=== PATIENT | male | born 1995 | race African-American/Black ===

== ENCOUNTER 2017-10-09 15:16 | Emergency (ER) | payer MEDICAID ==
[~2017-10-09] VITALS: Ht 180.3 cm; Wt 101.0 kg
[~2017-10-09 15:16] MED LIST: BENZ1TAB7 PO; CALC-336; ESCI20TA38 PO; HALO5TAB PO; OMEG500C3 PO; PALI234D IM; TRAZ-143 PO
[2017-10-09 15:31] VITALS: BP 129/78
== END 2017-10-09 17:38 | disposition left against medical advice (07) ==
LOC: ER 15:17
DX: M79.672 Pain in left foot (principal); M79.671 Pain in right foot; Z53.21 Procedure and treatment not carried out due to patient leaving prior to being seen by health care provider

== ENCOUNTER 2017-10-14 18:42 | Emergency (ER) | payer MEDICAID ==
[~2017-10-14] VITALS: Ht 180.3 cm; Wt 124.7 kg
[2017-10-14 19:17] VITALS: BP 140/84
[2017-10-14 19:50] LABS: UA COLLECTION TYPE CLN CATCH MIDSTREAM
[2017-10-14 19:51] LABS: CLARITY,URINE CLEAR (Clear); COLOR,URINE YELLOW (Yellow); GLUCOSE, URINE NEGATIVE (Neg); KETONES,URINE NEGATIVE (Neg); LEUKOCYTE ESTERASE ,URINE NEGATIVE (Neg); NITRITES, URINE NEGATIVE (Neg); OCCULT BLOOD,URINE NEGATIVE (Neg); PROTEIN,URINE NEGATIVE (Neg); UROBILINOGEN,URINE 0.2 E.U/dL (0.2-1.0)
[2017-10-14 19:58] LABS: URINE AMPHETAMINE SCREEN NEGATIVE (Neg); URINE BARBITUATE SCREEN NEGATIVE (Neg); URINE BENZODIAZEPINES SCREEN NEGATIVE (Neg); URINE CANNABINOID SCREEN NEGATIVE (Neg); URINE COCAINE SCREEN NEGATIVE (Neg); URINE METHADONE SCREEN NEGATIVE (Neg); URINE OPIATE SCREEN NEGATIVE (Neg); URINE PHENCYCLIDINE SCREEN NEGATIVE (Neg)
[2017-10-14 20:43] LABS: BASOPHILS % (AUTO) 0.4 % (0-1); EOSINOPHILS # (AUTO) 0.2 X10'3 (0-0.9); EOSINOPHILS % (AUTO) 2.6 % (0-6); HEMATOCRIT 38.2 % (42.0-52.0); HEMOGLOBIN 13.3 g/dl (14.0-17.9); LYMPHOCYTES # (AUTO) 2.1 X10'3 (1.1-4.8); LYMPHOCYTES % (AUTO) 22.4 % (21-51); MEAN CORPUSCULAR HEMOGLOBIN 27.2 PG (27.0-31.0); MEAN CORPUSCULAR HGB CONC 34.8 % (33.0-36.5); MEAN CORPUSCULAR VOLUME 78.1 FL (78-98); MEAN PLATELET VOLUME 9.4 FL (7.4-10.4); MONOCYTES # (AUTO) 0.7 X10'3 (0-0.9); MONOCYTES % (AUTO) 7.8 % (2-12); NEUTROPHILS # (AUTO) 6.1 X10'3 (1.8-7.7); NEUTROPHILS % (AUTO) 66.8 % (42-75); PLATELET COUNT 221 X10'3 (140-440); RED BLOOD COUNT 4.89 X10'6 (4.70-6.10); WHITE BLOOD COUNT 9.2 X10'3 (4.5-11.0)
[2017-10-14 20:56] LABS: ALANINE AMINOTRANSFERASE 39 U/L (12-78); ALBUMIN 3.4 G/DL (3.4-5.0); ALBUMIN/GLOBULIN RATIO 0.9 (1.1-1.5); ALKALINE PHOSPHATASE 96 IU/L (46-116); ANION GAP 9 (8-16); ASPARTATE AMINO TRANSFERASE 26 U/L (10-37); BILIRUBIN,TOTAL 0.2 MG/DL (0.1-1.0); BLOOD UREA NITROGEN 14 MG/DL (7-18); BUN/CREATININE RATIO 15.4 (5.4-32.0); CALCIUM 8.4 MG/DL (8.5-10.1); CHLORIDE 104 MMOL/L (99-107); CREATININE 0.91 MG/DL (0.60-1.10); ETHANOL < 0.010 GM/DL (0.0-0.010); GLUCOSE 111 MG/DL (70-104); POTASSIUM 3.6 MMOL/L (3.5-5.1); SODIUM 140 MMOL/L (135-145); TOTAL CARBON DIOXIDE 27.3 MMOL/L (24-32); TOTAL PROTEIN 7.2 G/DL (6.4-8.2); eGFR > 90 ML/MIN
== END 2017-10-14 21:39 | disposition home or self-care (01) ==
LOC: ER 18:43
DX: R44.1 Visual hallucinations (principal); F43.29 Adjustment disorder with other symptoms; R44.0 Auditory hallucinations; F99 Mental disorder, not otherwise specified; F32.9 Major depressive disorder, single episode, unspecified; Z59.0 Homelessness; Z79.899 Other long term (current) drug therapy
CPT/HCPCS: 36415; 80053; 80305; 80320; 81003; 84443; 85025; 99284

== ENCOUNTER → 2017-11-07 | Emergency (ER) | payer MEDICAID ==
[~2017-11-07] VITALS: Ht 185.4 cm; Wt 103.6 kg
[~2017-11-07] MED LIST changes: -CALC-336; +LORazepam 0.5 MG tablet PO PRN; +LORazepam 2 mg/ml vial IM PRN; -OMEG500C3 PO; +haloperidol 5mg tablet PO PRN; +haloperidol lactate 5mg/ml inj IM PRN
[2017-11-07 20:53] LABS: BASOPHILS # (AUTO) 0.1 X10'3 (0-0.2); BASOPHILS % (AUTO) 1.1 % (0-1); EOSINOPHILS # (AUTO) 0.2 X10'3 (0-0.9); EOSINOPHILS % (AUTO) 2.6 % (0-6); HEMATOCRIT 40.1 % (42.0-52.0); HEMOGLOBIN 13.6 g/dl (14.0-17.9); LYMPHOCYTES # (AUTO) 2.2 X10'3 (1.1-4.8); LYMPHOCYTES % (AUTO) 24.2 % (21-51); MEAN CORPUSCULAR HEMOGLOBIN 26.8 PG (27.0-31.0); MEAN CORPUSCULAR VOLUME 78.7 FL (78-98); MONOCYTES # (AUTO) 0.7 X10'3 (0-0.9); NEUTROPHILS # (AUTO) 5.7 X10'3 (1.8-7.7); NEUTROPHILS % (AUTO) 64.1 % (42-75); PLATELET COUNT 227 X10'3 (140-440); RED BLOOD COUNT 5.09 X10'6 (4.70-6.10); RED CELL DISTRIBUTION WIDTH 14.3 % (11.5-14.5)
[2017-11-07 21:17] LABS: ALANINE AMINOTRANSFERASE 30 U/L (12-78); ALBUMIN 3.7 G/DL (3.4-5.0); ALKALINE PHOSPHATASE 91 IU/L (46-116); ANION GAP 8 (8-16); ASPARTATE AMINO TRANSFERASE 21 U/L (10-37); BILIRUBIN,TOTAL 0.2 MG/DL (0.1-1.0); BLOOD UREA NITROGEN 16 MG/DL (7-18); BUN/CREATININE RATIO 16.7 (5.4-32.0); CHLORIDE 104 MMOL/L (99-107); CREATININE 0.96 MG/DL (0.60-1.10); ETHANOL < 0.010 GM/DL (0.0-0.010); GLUCOSE 92 MG/DL (70-104); POTASSIUM 3.7 MMOL/L (3.5-5.1); SODIUM 142 MMOL/L (135-145); TOTAL CARBON DIOXIDE 29.8 MMOL/L (24-32); TOTAL PROTEIN 7.3 G/DL (6.4-8.2); eGFR > 90 ML/MIN
[2017-11-07 22:14] LABS: URINE AMPHETAMINE SCREEN NEGATIVE (Neg); URINE BARBITUATE SCREEN NEGATIVE (Neg); URINE BENZODIAZEPINES SCREEN NEGATIVE (Neg); URINE CANNABINOID SCREEN NEGATIVE (Neg); URINE COCAINE SCREEN NEGATIVE (Neg); URINE METHADONE SCREEN NEGATIVE (Neg); URINE OPIATE SCREEN NEGATIVE (Neg); URINE PHENCYCLIDINE SCREEN NEGATIVE (Neg)
[2017-11-07 22:19] LABS: CLARITY,URINE CLEAR (Clear); COLOR,URINE YELLOW (Yellow); GLUCOSE, URINE NEGATIVE (Neg); KETONES,URINE NEGATIVE (Neg); LEUKOCYTE ESTERASE ,URINE NEGATIVE (Neg); NITRITES, URINE NEGATIVE (Neg); OCCULT BLOOD,URINE NEGATIVE (Neg); PROTEIN,URINE NEGATIVE (Neg); UA COLLECTION TYPE CLN CATCH MIDSTREAM; UROBILINOGEN,URINE 0.2 E.U/dL (0.2-1.0)
[2017-11-08 10:04] VITALS: BP 121/69
== END | disposition home or self-care (01) ==
LOC: ER 20:05
DX: R45.850 Homicidal ideations (principal); F20.0 Paranoid schizophrenia; F15.10 Other stimulant abuse, uncomplicated; E03.9 Hypothyroidism, unspecified; L98.9 Disorder of the skin and subcutaneous tissue, unspecified; F32.9 Major depressive disorder, single episode, unspecified; Z79.899 Other long term (current) drug therapy; Z59.0 Homelessness
CPT/HCPCS: 36415; 80053; 80305; 80320; 81003; 84439; 84443; 85025; 99284

== ENCOUNTER 2017-11-27 12:30 | Emergency (ER) | payer MEDICAID ==
[~2017-11-27] VITALS: Ht 180.3 cm; Wt 119.0 kg
[~2017-11-27 12:30] MED LIST changes: -LORazepam 0.5 MG tablet PO PRN; -LORazepam 2 mg/ml vial IM PRN; -haloperidol 5mg tablet PO PRN; -haloperidol lactate 5mg/ml inj IM PRN
[2017-11-27 12:42] VITALS: BP 132/85
[2017-11-27] MEDS ORDERED: CLIN-79 PO (13:13)
== END 2017-11-27 13:21 | disposition home or self-care (01) ==
LOC: ER 12:34
DX: K04.7 Periapical abscess without sinus (principal); Z79.899 Other long term (current) drug therapy; Z59.0 Homelessness
CPT/HCPCS: 99283

== ENCOUNTER 2017-12-01 19:00 | Emergency (ER) | payer MEDICAID ==
[~2017-12-01] VITALS: Ht 180.3 cm; Wt 119.0 kg
[~2017-12-01 19:00] MED LIST changes: +CLIN-79 PO
[2017-12-01 20:34] LABS: BASOPHILS % (AUTO) 0.6 % (0-1); EOSINOPHILS # (AUTO) 0.3 X10'3 (0-0.9); EOSINOPHILS % (AUTO) 3.7 % (0-6); HEMATOCRIT 38.4 % (42.0-52.0); HEMOGLOBIN 12.8 g/dl (14.0-17.9); LYMPHOCYTES # (AUTO) 1.7 X10'3 (1.1-4.8); LYMPHOCYTES % (AUTO) 21.2 % (21-51); MEAN CORPUSCULAR HEMOGLOBIN 26.3 PG (27.0-31.0); MEAN CORPUSCULAR HGB CONC 33.3 % (33.0-36.5); MEAN PLATELET VOLUME 8.8 FL (7.4-10.4); MONOCYTES # (AUTO) 0.6 X10'3 (0-0.9); MONOCYTES % (AUTO) 7.9 % (2-12); NEUTROPHILS # (AUTO) 5.5 X10'3 (1.8-7.7); NEUTROPHILS % (AUTO) 66.6 % (42-75); PLATELET COUNT 228 X10'3 (140-440); RED BLOOD COUNT 4.87 X10'6 (4.70-6.10); RED CELL DISTRIBUTION WIDTH 14.1 % (11.5-14.5); WHITE BLOOD COUNT 8.2 X10'3 (4.5-11.0)
[2017-12-01 20:47] LABS: ALANINE AMINOTRANSFERASE 33 U/L (12-78); ALBUMIN 3.3 G/DL (3.4-5.0); ALBUMIN/GLOBULIN RATIO 0.9 (1.1-1.5); ALKALINE PHOSPHATASE 94 IU/L (46-116); ANION GAP 8 (8-16); ASPARTATE AMINO TRANSFERASE 21 U/L (10-37); BILIRUBIN,TOTAL 0.2 MG/DL (0.1-1.0); BLOOD UREA NITROGEN 13 MG/DL (7-18); BUN/CREATININE RATIO 15.7 (5.4-32.0); CALCIUM 8.4 MG/DL (8.5-10.1); CHLORIDE 105 MMOL/L (99-107); CREATININE 0.83 MG/DL (0.60-1.10); ETHANOL < 0.010 GM/DL (0.0-0.010); GLUCOSE 112 MG/DL (70-104); POTASSIUM 3.7 MMOL/L (3.5-5.1); SODIUM 141 MMOL/L (135-145); TOTAL CARBON DIOXIDE 28.2 MMOL/L (24-32); TOTAL PROTEIN 6.8 G/DL (6.4-8.2); eGFR > 90 ML/MIN
[2017-12-01 21:10] LABS: URINE AMPHETAMINE SCREEN NEGATIVE (Neg); URINE BARBITUATE SCREEN NEGATIVE (Neg); URINE BENZODIAZEPINES SCREEN NEGATIVE (Neg); URINE CANNABINOID SCREEN NEGATIVE (Neg); URINE COCAINE SCREEN NEGATIVE (Neg); URINE METHADONE SCREEN NEGATIVE (Neg); URINE OPIATE SCREEN NEGATIVE (Neg); URINE PHENCYCLIDINE SCREEN NEGATIVE (Neg)
[2017-12-02 08:05] VITALS: BP 116/57
== END 2017-12-02 09:09 | disposition home or self-care (01) ==
LOC: ER 19:00
DX: F20.9 Schizophrenia, unspecified (principal); F32.9 Major depressive disorder, single episode, unspecified; R45.851 Suicidal ideations; Z59.0 Homelessness; Z60.2 Problems related to living alone; Z79.899 Other long term (current) drug therapy
CPT/HCPCS: 36415; 80053; 80305; 80320; 85025; 99284

== ENCOUNTER 2018-02-24 17:18 | Emergency (ER) | payer MEDICAID ==
[~2018-02-24] VITALS: Ht 180.3 cm; Wt 130.0 kg
[~2018-02-24 17:18] MED LIST changes: -CLIN-79 PO; +CLIN150C8 PO; -TRAZ-143 PO; +TRAZ-218 PO
[2018-02-24 18:29] LABS: BASOPHILS # (AUTO) 0.1 X10'3 (0-0.2); BASOPHILS % (AUTO) 0.9 % (0-1); EOSINOPHILS # (AUTO) 0.2 X10'3 (0-0.9); EOSINOPHILS % (AUTO) 1.5 % (0-6); HEMATOCRIT 38.3 % (42.0-52.0); HEMOGLOBIN 13.1 g/dl (14.0-17.9); LYMPHOCYTES # (AUTO) 1.7 X10'3 (1.1-4.8); LYMPHOCYTES % (AUTO) 14.5 % (21-51); MEAN CORPUSCULAR HEMOGLOBIN 26.9 PG (27.0-31.0); MEAN CORPUSCULAR HGB CONC 34.3 % (33.0-36.5); MEAN CORPUSCULAR VOLUME 78.6 FL (78-98); MEAN PLATELET VOLUME 8.4 FL (7.4-10.4); MONOCYTES # (AUTO) 1.1 X10'3 (0-0.9); MONOCYTES % (AUTO) 9.3 % (2-12); NEUTROPHILS # (AUTO) 8.6 X10'3 (1.8-7.7); NEUTROPHILS % (AUTO) 73.8 % (42-75); PLATELET COUNT 252 X10'3 (140-440); RED BLOOD COUNT 4.88 X10'6 (4.70-6.10); RED CELL DISTRIBUTION WIDTH 14.6 % (11.5-14.5); WHITE BLOOD COUNT 11.6 X10'3 (4.5-11.0)
[2018-02-24 18:44] LABS: ALANINE AMINOTRANSFERASE 37 U/L (12-78); ALBUMIN 3.4 G/DL (3.4-5.0); ALBUMIN/GLOBULIN RATIO 0.9 (1.1-1.5); ALKALINE PHOSPHATASE 98 IU/L (46-116); ANION GAP 6 (8-16); ASPARTATE AMINO TRANSFERASE 22 U/L (10-37); BILIRUBIN,TOTAL 0.2 MG/DL (0.1-1.0); BLOOD UREA NITROGEN 12 MG/DL (7-18); CALCIUM 8.4 MG/DL (8.5-10.1); CHLORIDE 104 MMOL/L (99-107); CREATININE 0.92 MG/DL (0.60-1.10); GLUCOSE 100 MG/DL (70-104); POTASSIUM 3.6 MMOL/L (3.5-5.1); SODIUM 139 MMOL/L (135-145); TOTAL CARBON DIOXIDE 28.8 MMOL/L (24-32); TOTAL PROTEIN 7.1 G/DL (6.4-8.2); eGFR > 90 ML/MIN
[2018-02-24 18:54] LABS: ETHANOL < 0.010 GM/DL (0.0-0.010)
[2018-02-24 18:55] LABS: CLARITY,URINE CLEAR (Clear); COLOR,URINE YELLOW (Yellow); GLUCOSE, URINE NEGATIVE (Neg); KETONES,URINE NEGATIVE (Neg); LEUKOCYTE ESTERASE ,URINE NEGATIVE (Neg); NITRITES, URINE NEGATIVE (Neg); OCCULT BLOOD,URINE NEGATIVE (Neg); PROTEIN,URINE NEGATIVE (Neg)
[2018-02-24 18:58] LABS: UA COLLECTION TYPE CLN CATCH MIDSTREAM
[2018-02-24 19:07] LABS: URINE AMPHETAMINE SCREEN NEGATIVE (Neg); URINE BARBITUATE SCREEN NEGATIVE (Neg); URINE BENZODIAZEPINES SCREEN NEGATIVE (Neg); URINE CANNABINOID SCREEN NEGATIVE (Neg); URINE COCAINE SCREEN NEGATIVE (Neg); URINE METHADONE SCREEN NEGATIVE (Neg); URINE OPIATE SCREEN NEGATIVE (Neg); URINE PHENCYCLIDINE SCREEN NEGATIVE (Neg)
[2018-02-24] MEDS ORDERED: HALO5TAB PO (19:47)
[2018-02-24] MEDS ORDERED: HALO10TA13 PO (19:47)
[2018-02-24] MEDS ORDERED: BENZ1TAB7 PO (19:47)
[2018-02-24] MEDS ORDERED: OMEP40CA37 PO (20:00)
[2018-02-24] MEDS ORDERED: benztropine 1mg tablet PO PRN (21:35)
[2018-02-24] MEDS ORDERED: haloperidol 5mg tablet PO SCH (23:00)
[2018-02-25 06:13] VITALS: BP 113/54
[2018-02-25] MEDS ORDERED: pantoprazole 40mg Tablet.DR PO SCH (08:00)
[2018-02-25] MEDS ORDERED: haloperidol 5mg tablet PO SCH (08:00)
[2018-02-25] MEDS ORDERED: citalopram 20mg tablet PO SCH (08:00)
[2018-02-25] MEDS ORDERED: traZODone 50mg tablet PO SCH (21:00)
== END 2018-02-25 14:06 ==
LOC: ER 17:18
DX: R45.851 Suicidal ideations (principal); R45.850 Homicidal ideations; F29 Unspecified psychosis not due to a substance or known physiological condition; F32.9 Major depressive disorder, single episode, unspecified; F20.9 Schizophrenia, unspecified; Z79.899 Other long term (current) drug therapy; Z59.0 Homelessness; Z60.2 Problems related to living alone
CPT/HCPCS: 36415; 80053; 80305; 80320; 81003; 84443; 85025; 99285

== ENCOUNTER 2018-05-08 11:49 | Emergency (ER) | payer MEDICAID ==
[~2018-05-08] VITALS: Ht 180.3 cm; Wt 120.0 kg
[~2018-05-08 11:49] MED LIST changes: -CLIN150C8 PO; +HALO10TA13 PO; +OMEP40CA37 PO
[2018-05-08 11:59] VITALS: BP 124/80
[2018-05-08] MEDS ORDERED: IBUP-1985 PO (12:26)
[2018-05-08] MEDS ORDERED: PENI500T2 PO (12:26)
== END 2018-05-08 12:34 | disposition home or self-care (01) ==
LOC: ER 11:50
DX: K08.89 Other specified disorders of teeth and supporting structures (principal); R11.10 Vomiting, unspecified; F32.9 Major depressive disorder, single episode, unspecified; F20.9 Schizophrenia, unspecified; Z59.0 Homelessness; Z79.899 Other long term (current) drug therapy
CPT/HCPCS: 99283

== ENCOUNTER 2018-05-31 18:37 | Emergency (ER) | payer MEDICAID ==
[~2018-05-31] VITALS: Ht 180.3 cm; Wt 84.5 kg
[~2018-05-31 18:37] MED LIST changes: +IBUP-1985 PO; +PENI500T2 PO
[2018-05-31 19:09] VITALS: BP 148/78
== END 2018-05-31 20:23 | disposition home or self-care (01) ==
LOC: ER 18:37
DX: F20.9 Schizophrenia, unspecified (principal); F32.9 Major depressive disorder, single episode, unspecified; Z60.2 Problems related to living alone; Z59.0 Homelessness; Z79.899 Other long term (current) drug therapy
CPT/HCPCS: 99284

== ENCOUNTER 2018-06-13 20:25 | Emergency (ER) | payer MEDICAID ==
[~2018-06-13] VITALS: Ht 180.3 cm; Wt 120.0 kg
[~2018-06-13 20:25] MED LIST changes: -PENI500T2 PO
[2018-06-13 21:06] LABS: BASOPHILS # (AUTO) 0.1 X10'3 (0-0.2); BASOPHILS % (AUTO) 0.7 % (0-1); EOSINOPHILS # (AUTO) 0.2 X10'3 (0-0.9); EOSINOPHILS % (AUTO) 2.2 % (0-6); HEMATOCRIT 40.6 % (42.0-52.0); HEMOGLOBIN 13.5 g/dl (14.0-17.9); LYMPHOCYTES # (AUTO) 1.8 X10'3 (1.1-4.8); LYMPHOCYTES % (AUTO) 17.7 % (21-51); MEAN CORPUSCULAR HEMOGLOBIN 26.7 PG (27.0-31.0); MEAN CORPUSCULAR HGB CONC 33.1 % (33.0-36.5); MEAN CORPUSCULAR VOLUME 80.5 FL (78-98); MONOCYTES # (AUTO) 0.8 X10'3 (0-0.9); MONOCYTES % (AUTO) 7.7 % (2-12); NEUTROPHILS # (AUTO) 7.3 X10'3 (1.8-7.7); NEUTROPHILS % (AUTO) 71.7 % (42-75); PLATELET COUNT 242 X10'3 (140-440); RED BLOOD COUNT 5.05 X10'6 (4.70-6.10); RED CELL DISTRIBUTION WIDTH 14.1 % (11.5-14.5); WHITE BLOOD COUNT 10.1 X10'3 (4.5-11.0)
[2018-06-13] MEDS ORDERED: normal saline 1000ML IV soln IVB ONE (21:15)
[2018-06-13 21:16] LABS: ALANINE AMINOTRANSFERASE 38 U/L (12-78); ALBUMIN 3.7 G/DL (3.4-5.0); ALKALINE PHOSPHATASE 93 IU/L (46-116); ANION GAP 10 (8-16); ASPARTATE AMINO TRANSFERASE 24 U/L (10-37); BILIRUBIN,TOTAL 0.2 MG/DL (0.1-1.0); BLOOD UREA NITROGEN 8 MG/DL (7-18); BUN/CREATININE RATIO 9.5 (5.4-32.0); CALCIUM 8.7 MG/DL (8.5-10.1); CHLORIDE 105 MMOL/L (99-107); CREATININE 0.84 MG/DL (0.60-1.10); ETHANOL < 0.010 GM/DL (0.0-0.010); GLUCOSE 117 MG/DL (70-104); MAGNESIUM 2.1 MG/DL (1.5-2.4); POTASSIUM 3.7 MMOL/L (3.5-5.1); SODIUM 142 MMOL/L (135-145); TOTAL CARBON DIOXIDE 27.4 MMOL/L (24-32); TOTAL PROTEIN 7.3 G/DL (6.4-8.2); eGFR > 90 ML/MIN
[2018-06-13 21:17] LABS: ACETAMINOPHEN < 2.0 UG/ML (10-30)
[2018-06-13 21:27] LABS: PARTIAL THROMBOPLASTIN TIME 33 SECONDS (22-32)
[2018-06-13 21:35] LABS: CLARITY,URINE CLEAR (Clear); COLOR,URINE YELLOW (Yellow); GLUCOSE, URINE NEGATIVE (Neg); KETONES,URINE NEGATIVE (Neg); LEUKOCYTE ESTERASE ,URINE NEGATIVE (Neg); NITRITES, URINE NEGATIVE (Neg); OCCULT BLOOD,URINE NEGATIVE (Neg); PH,URINE 6.5 (4.8-8.0); PROTEIN,URINE NEGATIVE (Neg); UROBILINOGEN,URINE 0.2 E.U/dL (0.2-1.0)
[2018-06-13 21:39] LABS: UA COLLECTION TYPE CLN CATCH MIDSTREAM
[2018-06-13 21:51] LABS: URINE AMPHETAMINE SCREEN NEGATIVE (Neg); URINE BARBITUATE SCREEN NEGATIVE (Neg); URINE BENZODIAZEPINES SCREEN NEGATIVE (Neg); URINE CANNABINOID SCREEN NEGATIVE (Neg); URINE COCAINE SCREEN NEGATIVE (Neg); URINE METHADONE SCREEN NEGATIVE (Neg); URINE OPIATE SCREEN NEGATIVE (Neg); URINE PHENCYCLIDINE SCREEN NEGATIVE (Neg)
[2018-06-14] MEDS ORDERED: citalopram 20mg tablet PO SCH (08:00)
[2018-06-14 12:54] VITALS: BP 121/63
== END 2018-06-14 13:06 | disposition home or self-care (01) ==
LOC: ER 20:25
DX: T43.4X2A Poisoning by butyrophenone and thiothixene neuroleptics, intentional self-harm, initial encounter (principal); F32.9 Major depressive disorder, single episode, unspecified; F20.9 Schizophrenia, unspecified; Z79.899 Other long term (current) drug therapy; Z60.2 Problems related to living alone; Z59.0 Homelessness; Y92.89 Other specified places as the place of occurrence of the external cause
CPT/HCPCS: 36415; 80053; 80305; 80320; 80329; 81003; 83735; 85025; 85610; 85730; 93005; 99284

== ENCOUNTER 2018-07-10 19:42 | Emergency (ER) | payer MEDICAID ==
[~2018-07-10] VITALS: Ht 180.3 cm; Wt 99.0 kg
[2018-07-10] MEDS ORDERED: [UNRECOGNIZED DRUG - REMARK] (20:18)
[2018-07-10 20:48] LABS: ALANINE AMINOTRANSFERASE 33 U/L (12-78); ALBUMIN 3.2 G/DL (3.4-5.0); ALBUMIN/GLOBULIN RATIO 0.8 (1.1-1.5); ALKALINE PHOSPHATASE 96 IU/L (46-116); ANION GAP 11 (8-16); ASPARTATE AMINO TRANSFERASE 22 U/L (10-37); BILIRUBIN,TOTAL 0.1 MG/DL (0.1-1.0); BLOOD UREA NITROGEN 9 MG/DL (7-18); BUN/CREATININE RATIO 10.8 (5.4-32.0); CALCIUM 8.2 MG/DL (8.5-10.1); CHLORIDE 104 MMOL/L (99-107); CREATININE 0.83 MG/DL (0.60-1.10); GLUCOSE 140 MG/DL (70-104); POTASSIUM 3.5 MMOL/L (3.5-5.1); SODIUM 142 MMOL/L (135-145); TOTAL CARBON DIOXIDE 26.7 MMOL/L (24-32); eGFR > 90 ML/MIN
[2018-07-10 20:54] LABS: BASOPHILS % (AUTO) 0.3 % (0-1); EOSINOPHILS # (AUTO) 0.3 X10'3 (0-0.9); EOSINOPHILS % (AUTO) 2.7 % (0-6); HEMATOCRIT 37.4 % (42.0-52.0); HEMOGLOBIN 12.3 g/dl (14.0-17.9); LYMPHOCYTES # (AUTO) 2.3 X10'3 (1.1-4.8); LYMPHOCYTES % (AUTO) 24.1 % (21-51); MEAN CORPUSCULAR HEMOGLOBIN 26.4 PG (27.0-31.0); MEAN CORPUSCULAR HGB CONC 32.9 % (33.0-36.5); MEAN PLATELET VOLUME 9.1 FL (7.4-10.4); MONOCYTES # (AUTO) 0.8 X10'3 (0-0.9); MONOCYTES % (AUTO) 8.8 % (2-12); NEUTROPHILS % (AUTO) 64.1 % (42-75); PLATELET COUNT 282 X10'3 (140-440); RED BLOOD COUNT 4.67 X10'6 (4.70-6.10); RED CELL DISTRIBUTION WIDTH 14.1 % (11.5-14.5); WHITE BLOOD COUNT 9.4 X10'3 (4.5-11.0)
[2018-07-10 20:57] LABS: ETHANOL < 0.010 GM/DL (0.0-0.010)
[2018-07-10 22:21] LABS: CLARITY,URINE CLEAR (Clear); COLOR,URINE YELLOW (Yellow); GLUCOSE, URINE NEGATIVE (Neg); KETONES,URINE NEGATIVE (Neg); LEUKOCYTE ESTERASE ,URINE NEGATIVE (Neg); NITRITES, URINE NEGATIVE (Neg); OCCULT BLOOD,URINE NEGATIVE (Neg); PROTEIN,URINE NEGATIVE (Neg); UROBILINOGEN,URINE 0.2 E.U/dL (0.2-1.0)
[2018-07-10 22:34] LABS: URINE AMPHETAMINE SCREEN NEGATIVE (Neg); URINE BARBITUATE SCREEN NEGATIVE (Neg); URINE BENZODIAZEPINES SCREEN NEGATIVE (Neg); URINE CANNABINOID SCREEN NEGATIVE (Neg); URINE COCAINE SCREEN NEGATIVE (Neg); URINE METHADONE SCREEN NEGATIVE (Neg); URINE OPIATE SCREEN NEGATIVE (Neg); URINE PHENCYCLIDINE SCREEN NEGATIVE (Neg)
[2018-07-10 22:45] LABS: UA COLLECTION TYPE CLN CATCH MIDSTREAM
[2018-07-11 05:30] VITALS: BP 106/61
== END 2018-07-11 10:59 | disposition home or self-care (01) ==
LOC: ER 19:43
DX: S01.80XA Unspecified open wound of other part of head, initial encounter (principal); R45.851 Suicidal ideations; F32.9 Major depressive disorder, single episode, unspecified; F20.9 Schizophrenia, unspecified; F41.9 Anxiety disorder, unspecified; Z79.899 Other long term (current) drug therapy; Z60.2 Problems related to living alone; Z59.0 Homelessness; X58.XXXA Exposure to other specified factors, initial encounter; Y93.89 Activity, other specified; Y92.89 Other specified places as the place of occurrence of the external cause; Y99.8 Other external cause status
CPT/HCPCS: 36415; 80053; 80305; 80320; 80329; 81003; 84443; 85025; 99284

== ENCOUNTER 2018-07-18 19:08 | Emergency (ER) | payer MEDICAID ==
[~2018-07-18] VITALS: Ht 180.3 cm; Wt 120.3 kg
[~2018-07-18 19:08] MED LIST changes: -BENZ1TAB7 PO; -IBUP-1985 PO; -OMEP40CA37 PO; -TRAZ-218 PO; +[UNRECOGNIZED DRUG - REMARK]
[2018-07-18 19:51] VITALS: BP 144/82
== END 2018-07-18 21:04 | disposition left against medical advice (07) ==
LOC: ER 19:09
DX: R44.0 Auditory hallucinations (principal); Z53.21 Procedure and treatment not carried out due to patient leaving prior to being seen by health care provider

== ENCOUNTER 2018-07-24 18:07 | Emergency (ER) | payer MEDICAID | END 2018-07-24 19:29 | disposition left against medical advice (07) | LOC: ER 18:07 | DX: R45.851 Suicidal ideations (principal); Z53.21 Procedure and treatment not carried out due to patient leaving prior to being seen by health care provider ==

== ENCOUNTER 2018-07-25 18:16 | Emergency (ER) | payer MEDICAID ==
[~2018-07-25] VITALS: Ht 180.3 cm; Wt 130.0 kg
[2018-07-25] MEDS ORDERED: charcoal/sorbitol 50gm/240ml suspension PO ONE (18:20)
--- NOTE | 2018-07-25 18:35 | NUR ---
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 ROUTINE WORKUP, ASA TYL ETOH CHEM 6 HR OBSERVATION AND GO FROM THERE SUPPORTIVE TREATMENT. MADE AWARE.
[2018-07-25 18:49] LABS: BASOPHILS % (AUTO) 0.3 % (0-1); EOSINOPHILS # (AUTO) 0.3 X10'3 (0-0.9); EOSINOPHILS % (AUTO) 2.1 % (0-6); HEMATOCRIT 40.9 % (42.0-52.0); HEMOGLOBIN 13.4 g/dl (14.0-17.9); LYMPHOCYTES # (AUTO) 1.7 X10'3 (1.1-4.8); MEAN CORPUSCULAR HEMOGLOBIN 26.2 PG (27.0-31.0); MEAN CORPUSCULAR HGB CONC 32.9 % (33.0-36.5); MEAN CORPUSCULAR VOLUME 79.6 FL (78-98); MONOCYTES # (AUTO) 1.1 X10'3 (0-0.9); MONOCYTES % (AUTO) 8.3 % (2-12); NEUTROPHILS # (AUTO) 9.8 X10'3 (1.8-7.7); NEUTROPHILS % (AUTO) 76.3 % (42-75); PLATELET COUNT 281 X10'3 (140-440); RED BLOOD COUNT 5.14 X10'6 (4.70-6.10); RED CELL DISTRIBUTION WIDTH 14.1 % (11.5-14.5); WHITE BLOOD COUNT 12.9 X10'3 (4.5-11.0)
[2018-07-25 18:54] LABS: ALANINE AMINOTRANSFERASE 51 U/L (12-78); ALBUMIN 3.5 G/DL (3.4-5.0); ALBUMIN/GLOBULIN RATIO 0.8 (1.1-1.5); ALKALINE PHOSPHATASE 116 IU/L (46-116); ANION GAP 14 (8-16); ASPARTATE AMINO TRANSFERASE 26 U/L (10-37); BILIRUBIN,TOTAL 0.2 MG/DL (0.1-1.0); BLOOD UREA NITROGEN 8 MG/DL (7-18); BUN/CREATININE RATIO 9.8 (5.4-32.0); CALCIUM 8.6 MG/DL (8.5-10.1); CHLORIDE 100 MMOL/L (99-107); CREATININE 0.82 MG/DL (0.60-1.10); ETHANOL < 0.010 GM/DL (0.0-0.010); GLUCOSE 119 MG/DL (70-104); POTASSIUM 3.5 MMOL/L (3.5-5.1); SODIUM 141 MMOL/L (135-145); TOTAL CARBON DIOXIDE 27.1 MMOL/L (24-32); TOTAL PROTEIN 7.9 G/DL (6.4-8.2); eGFR > 90 ML/MIN
[2018-07-25 18:58] LABS: URINE AMPHETAMINE SCREEN NEGATIVE (Neg); URINE BARBITUATE SCREEN NEGATIVE (Neg); URINE BENZODIAZEPINES SCREEN NEGATIVE (Neg); URINE CANNABINOID SCREEN NEGATIVE (Neg); URINE COCAINE SCREEN NEGATIVE (Neg); URINE METHADONE SCREEN NEGATIVE (Neg); URINE OPIATE SCREEN NEGATIVE (Neg); URINE PHENCYCLIDINE SCREEN NEGATIVE (Neg)
--- NOTE | 2018-07-25 19:05 | NUR ---
SOC TELEPSYCH INITIATED
--- NOTE | 2018-07-25 21:37 | NUR ---
POISON CONTROL AMADO CALLED BACK FOR UPDATE. STATED TO CONTINUE OBSERVATION
--- NOTE | 2018-07-25 22:00 | NUR ---
SOC PSYCH CALLED FOR REPORT
[2018-07-25] MEDS ORDERED: LORazepam 1 MG tablet PO PRN (22:45)
--- NOTE | 2018-07-25 23:04 | NUR ---
Transferred to room 20. Report rec'd from Josias. Addendum: 07/25/18 at 2343 by GEOFFREY Added: Patient is awake, alert, able to make needs known. States he took "about 1/2 my bottle of haldol pills" in a suicide attempt. States the Haldol tablets were 10mg. Requests a blanket so he can go to sleep, "I just want to get some rest"
--- NOTE | 2018-07-25 23:05 | NUR ---
Awake, alert, able to make needs know. Denies complaints other than being cold and depressed.
--- NOTE | 2018-07-25 23:35 | NUR ---
Easily arousable for vital signs, otherwise, resting in bed with eyes closed, appearing to sleep without new issues or concerns. Denies needs, will continue to monitor for changes.
--- NOTE | 2018-07-26 | NUR ---
Resting comfortably in bed, no changes in assessment. Will continue to monitor for changes.
--- NOTE | 2018-07-26 01:13 | NUR ---
Resting in bed with eyes closed, resp even, unlabored, and sonorous. Appearing to sleep soundly. Will continue to monitor.
--- NOTE | 2018-07-26 02:06 | NUR ---
Resting in bed, eyes closed, appearing to sleep, will continue to monitor.
--- NOTE | 2018-07-26 03:11 | NUR ---
Resting in bed, eyes closed, appearing to sleep, will continue to monitor.
--- NOTE | 2018-07-26 03:12 | NUR ---
Packet sent to [facility].
--- NOTE | 2018-07-26 04:05 | NUR ---
Resting in bed, appears to sleep. No new concerns. Will monitor.
--- NOTE | 2018-07-26 05:16 | NUR ---
Resting in bed, appears to sleep, easily aroused. No new concerns. Vitals taken. Will monitor.
[2018-07-26 05:30] VITALS: BP 121/75
[2018-07-26] MEDS ORDERED: haloperidol 5mg tablet PO SCH ×3 (08:00→21:00)
[2018-07-26] MEDS ORDERED: benztropine 1mg tablet PO SCH (08:00)
[2018-07-26] MEDS ORDERED: citalopram 20mg tablet PO SCH (08:00)
--- NOTE | 2018-07-26 10:09 | NUR ---
pt is in bed sleeping, on left side, no s/s of distress noted
--- NOTE | 2018-07-26 12:01 | NUR ---
PT IS IN BED, SUPINE, SLEEPING, NO S/S OF DISTRESS, SPONTAINEOUS, REGULAR BREATHING
[2018-07-26] MEDS ORDERED: SULF1TAB49 PO (14:10)
[2018-07-30] MEDS ORDERED: paliperidone palmitate inj 234 MG/1.5 ML SYRINGE IM SCH (08:00)
== END 2018-07-26 15:00 | disposition home or self-care (01) ==
LOC: ER 18:16
DX: F32.9 Major depressive disorder, single episode, unspecified (principal); R45.851 Suicidal ideations; F41.9 Anxiety disorder, unspecified; F20.9 Schizophrenia, unspecified; Z79.899 Other long term (current) drug therapy; Z60.2 Problems related to living alone; Z59.0 Homelessness
CPT/HCPCS: 36415; 80053; 80305; 80320; 85025; 93005; 99284

== ENCOUNTER 2018-09-26 16:58 | Emergency (ER) | payer MEDICAID ==
[~2018-09-26] VITALS: Ht 180.3 cm; Wt 118.6 kg
[~2018-09-26 16:58] MED LIST changes: -[UNRECOGNIZED DRUG - REMARK]
[2018-09-26 17:32] LABS: BASOPHILS % (AUTO) 0.4 % (0-1); EOSINOPHILS # (AUTO) 0.2 X10'3 (0-0.9); EOSINOPHILS % (AUTO) 1.8 % (0-6); HEMATOCRIT 41.3 % (42.0-52.0); HEMOGLOBIN 13.7 g/dl (14.0-17.9); LYMPHOCYTES # (AUTO) 1.6 X10'3 (1.1-4.8); LYMPHOCYTES % (AUTO) 18.2 % (21-51); MEAN CORPUSCULAR HGB CONC 33.2 g/dL (33.0-36.5); MEAN CORPUSCULAR VOLUME 78.5 FL (78-98); MEAN PLATELET VOLUME 8.7 FL (7.4-10.4); MONOCYTES # (AUTO) 0.9 X10'3 (0-0.9); MONOCYTES % (AUTO) 10.1 % (2-12); NEUTROPHILS % (AUTO) 69.5 % (42-75); PLATELET COUNT 293 X10'3 (140-440); RED BLOOD COUNT 5.26 X10'6 (4.70-6.10); RED CELL DISTRIBUTION WIDTH 14.3 % (11.5-14.5); WHITE BLOOD COUNT 8.6 X10'3 (4.5-11.0)
[2018-09-26 17:40] LABS: ALANINE AMINOTRANSFERASE 31 U/L (12-78); ALBUMIN 3.7 G/DL (3.4-5.0); ALBUMIN/GLOBULIN RATIO 0.9 (1.1-1.5); ALKALINE PHOSPHATASE 97 IU/L (46-116); ANION GAP 6 (8-16); ASPARTATE AMINO TRANSFERASE 18 U/L (10-37); BILIRUBIN,TOTAL 0.2 MG/DL (0.1-1.0); BLOOD UREA NITROGEN 9 MG/DL (7-18); BUN/CREATININE RATIO 10.3 (5.4-32.0); CALCIUM 8.8 MG/DL (8.5-10.1); CHLORIDE 101 MMOL/L (99-107); CREATININE 0.87 MG/DL (0.60-1.10); GLUCOSE 116 MG/DL (70-104); POTASSIUM 3.2 MMOL/L (3.5-5.1); SODIUM 137 MMOL/L (135-145); TOTAL CARBON DIOXIDE 30.2 MMOL/L (24-32); TOTAL PROTEIN 7.8 G/DL (6.4-8.2); eGFR > 90 ML/MIN
[2018-09-26 17:50] LABS: CLARITY,URINE CLEAR (Clear); COLOR,URINE YELLOW (Yellow); GLUCOSE, URINE NEGATIVE (Neg); KETONES,URINE NEGATIVE (Neg); LEUKOCYTE ESTERASE ,URINE NEGATIVE (Neg); NITRITES, URINE NEGATIVE (Neg); OCCULT BLOOD,URINE NEGATIVE (Neg); PROTEIN,URINE NEGATIVE (Neg); UROBILINOGEN,URINE 0.2 E.U/dL (0.2-1.0)
[2018-09-26 17:52] LABS: ETHANOL < 0.010 GM/DL (0.0-0.010)
[2018-09-26 17:55] LABS: UA COLLECTION TYPE VOIDED
[2018-09-26 18:00] LABS: URINE AMPHETAMINE SCREEN POSITIVE (Neg); URINE BARBITUATE SCREEN NEGATIVE (Neg); URINE BENZODIAZEPINES SCREEN NEGATIVE (Neg); URINE CANNABINOID SCREEN NEGATIVE (Neg); URINE COCAINE SCREEN NEGATIVE (Neg); URINE METHADONE SCREEN NEGATIVE (Neg); URINE OPIATE SCREEN NEGATIVE (Neg); URINE PHENCYCLIDINE SCREEN NEGATIVE (Neg)
--- NOTE | 2018-09-26 18:06 | NUR ---
Tele psych consult initiated.
--- NOTE | 2018-09-26 19:16 | NUR ---
TELEPSYCH DR ON WITH PT
--- NOTE | 2018-09-26 19:34 | NUR ---
PER TELEPSYCH DR PT DOES NOT TO BE ON A MENTAL HEALTH HOLD. PT NEEDS TO BE TREATED IN AN OUTPATIENT BASIS.
== END 2018-09-26 20:12 | disposition home or self-care (01) ==
LOC: ER 16:59
DX: R45.851 Suicidal ideations (principal); F41.9 Anxiety disorder, unspecified; F32.9 Major depressive disorder, single episode, unspecified; R44.0 Auditory hallucinations; Z59.0 Homelessness
CPT/HCPCS: 36415; 80053; 80305; 80320; 81003; 84443; 85025; 99283

== ENCOUNTER 2019-02-09 16:22 | Emergency (ER) | payer MEDICAID ==
[~2019-02-09] VITALS: Ht 180.3 cm; Wt 120.0 kg
[~2019-02-09 16:22] MED LIST changes: +NYSPWD TP
[2019-02-09 16:40] VITALS: BP 131/76
[2019-02-09] MEDS ORDERED: mupirocin 2% ointment 22GM TP STA (17:22)
== END 2019-02-09 17:41 | disposition home or self-care (01) ==
LOC: ER 16:23
DX: S80.812A Abrasion, left lower leg, initial encounter (principal); F41.9 Anxiety disorder, unspecified; F32.9 Major depressive disorder, single episode, unspecified; F20.9 Schizophrenia, unspecified; Z60.2 Problems related to living alone; Z59.0 Homelessness; Z79.899 Other long term (current) drug therapy; X58.XXXA Exposure to other specified factors, initial encounter; Y93.89 Activity, other specified; Y92.89 Other specified places as the place of occurrence of the external cause; Y99.8 Other external cause status
CPT/HCPCS: 99282

== ENCOUNTER 2019-02-15 20:07 | Emergency (ER) | payer MEDICAID ==
[~2019-02-15] VITALS: Ht 180.3 cm; Wt 130.0 kg
[2019-02-15 20:49] LABS: BASOPHILS # (AUTO) 0.1 X10'3 (0-0.2); BASOPHILS % (AUTO) 0.7 % (0-1); EOSINOPHILS # (AUTO) 0.2 X10'3 (0-0.9); EOSINOPHILS % (AUTO) 1.9 % (0-6); HEMATOCRIT 42.2 % (42.0-52.0); HEMOGLOBIN 14.1 g/dl (14.0-17.9); LYMPHOCYTES # (AUTO) 3.5 X10'3 (1.1-4.8); LYMPHOCYTES % (AUTO) 29.6 % (21-51); MEAN CORPUSCULAR HEMOGLOBIN 26.9 PG (27.0-31.0); MEAN CORPUSCULAR HGB CONC 33.3 g/dL (33.0-36.5); MEAN CORPUSCULAR VOLUME 80.7 FL (78-98); MEAN PLATELET VOLUME 8.2 FL (7.4-10.4); MONOCYTES % (AUTO) 8.2 % (2-12); NEUTROPHILS % (AUTO) 59.6 % (42-75); PLATELET COUNT 274 X10'3 (140-440); RED BLOOD COUNT 5.23 X10'6 (4.70-6.10); RED CELL DISTRIBUTION WIDTH 14.7 % (11.5-14.5); WHITE BLOOD COUNT 11.7 X10'3 (4.5-11.0)
[2019-02-15 20:56] LABS: CLARITY,URINE CLEAR (Clear); COLOR,URINE YELLOW (Yellow); GLUCOSE, URINE NEGATIVE (Neg); KETONES,URINE NEGATIVE (Neg); LEUKOCYTE ESTERASE ,URINE NEGATIVE (Neg); NITRITES, URINE NEGATIVE (Neg); OCCULT BLOOD,URINE NEGATIVE (Neg); PH,URINE 6.5 (4.8-8.0); PROTEIN,URINE NEGATIVE (Neg); UA COLLECTION TYPE URINAL; UROBILINOGEN,URINE 0.2 E.U/dL (0.2-1.0)
[2019-02-15 21:04] LABS: PARTIAL THROMBOPLASTIN TIME 33 SECONDS (22-32)
[2019-02-15 21:09] LABS: ALANINE AMINOTRANSFERASE 37 U/L (12-78); ALBUMIN 3.9 G/DL (3.4-5.0); ALKALINE PHOSPHATASE 106 IU/L (46-116); ANION GAP 11 (8-16); ASPARTATE AMINO TRANSFERASE 20 U/L (10-37); BILIRUBIN,TOTAL 0.2 MG/DL (0.1-1.0); BLOOD UREA NITROGEN 6 MG/DL (7-18); BUN/CREATININE RATIO 7.2 (5.4-32.0); CHLORIDE 104 MMOL/L (99-107); CREATININE 0.83 MG/DL (0.60-1.10); GLUCOSE 89 MG/DL (70-104); POTASSIUM 3.8 MMOL/L (3.5-5.1); SODIUM 141 MMOL/L (135-145); TOTAL CARBON DIOXIDE 25.9 MMOL/L (24-32); TOTAL PROTEIN 7.9 G/DL (6.4-8.2); eGFR > 90 ML/MIN
[2019-02-15 21:10] LABS: URINE AMPHETAMINE SCREEN NEGATIVE (Neg); URINE BARBITUATE SCREEN NEGATIVE (Neg); URINE BENZODIAZEPINES SCREEN NEGATIVE (Neg); URINE CANNABINOID SCREEN NEGATIVE (Neg); URINE COCAINE SCREEN NEGATIVE (Neg); URINE METHADONE SCREEN NEGATIVE (Neg); URINE OPIATE SCREEN NEGATIVE (Neg); URINE PHENCYCLIDINE SCREEN NEGATIVE (Neg)
--- NOTE | 2019-02-15 21:12 | NUR ---
CALLED POISON CONTROL AND SPOKE WITH RADHA. TO MONITOR PT RESPIRATIONS AND LEVEL OF CONSCIOUSNESS AND BLOOD PRESSURE DUE TO UNKNOWN HALDOL INGESTION AND TO TX WITH FLUIDS OR NOREPINEPHRINE IF PT UNRESPONSIVE TO FLUIDS. FOR LEXAPRO, MONITOR FOR SEIZURE ACTIVITY AND TX WITH BENZOS AND MONITOR FOR QT PROLONGMENT. IF QT IS >500, TX WITH 1-2 GRAMS OF MAGNESIUM. ALSO MONITOR PT CALCIUM AND POTASSIUM LEVELS. MADE AWARE. CHARCOL NOT INDICATED DUE TO PT EMESIS MULTIPLE TIMES UPON ARRIVAL.
[2019-02-15 21:16] LABS: ACETAMINOPHEN < 2.0 UG/ML (10-30); TROPONIN I < 0.04 NG/ML (0.0-0.05)
[2019-02-15 21:19] LABS: ETHANOL 0.122 GM/DL (0.0-0.010)
[2019-02-15] MEDS ORDERED: TRAZ-219 PO (21:36)
[2019-02-15] MEDS ORDERED: BENZ2TAB7 PO (21:36)
[2019-02-15 22:33] VITALS: BP 112/45
== END 2019-02-15 22:34 | disposition home or self-care (01) ==
LOC: ER 20:07
DX: T43.4X2A Poisoning by butyrophenone and thiothixene neuroleptics, intentional self-harm, initial encounter (principal); T43.222A Poisoning by selective serotonin reuptake inhibitors, intentional self-harm, initial encounter; T43.211A Poisoning by selective serotonin and norepinephrine reuptake inhibitors, accidental (unintentional), initial encounter; T44.3X1A Poisoning by other parasympatholytics [anticholinergics and antimuscarinics] and spasmolytics, accidental (unintentional), initial encounter; F10.929 Alcohol use, unspecified with intoxication, unspecified; F32.9 Major depressive disorder, single episode, unspecified; F41.9 Anxiety disorder, unspecified; F20.9 Schizophrenia, unspecified; R79.1 Abnormal coagulation profile; Z79.899 Other long term (current) drug therapy; Z60.2 Problems related to living alone; Z59.0 Homelessness; Y90.9 Presence of alcohol in blood, level not specified; Y92.89 Other specified places as the place of occurrence of the external cause
CPT/HCPCS: 36415; 71045; 80053; 80305; 80320; 80329; 81003; 84484; 85025; 85610; 85730; 93005; 99284

== ENCOUNTER 2019-04-02 17:22 | Emergency (ER) | payer MEDICAID ==
[~2019-04-02] VITALS: Ht 180.3 cm; Wt 121.1 kg
[~2019-04-02 17:22] MED LIST changes: +BENZ2TAB7 PO; -NYSPWD TP; +TRAZ-219 PO
--- NOTE | 2019-04-02 19:09 | NUR ---
gave him water, he is in the RAP room awaiting to be seen
[2019-04-02 19:29] LABS: URINE AMPHETAMINE SCREEN NEGATIVE (Neg); URINE BARBITUATE SCREEN NEGATIVE (Neg); URINE BENZODIAZEPINES SCREEN NEGATIVE (Neg); URINE CANNABINOID SCREEN NEGATIVE (Neg); URINE COCAINE SCREEN NEGATIVE (Neg); URINE METHADONE SCREEN NEGATIVE (Neg); URINE OPIATE SCREEN NEGATIVE (Neg); URINE PHENCYCLIDINE SCREEN NEGATIVE (Neg)
[2019-04-02 19:31] LABS: BASOPHILS % (AUTO) 0.4 % (0-1); EOSINOPHILS # (AUTO) 0.1 X10'3 (0-0.9); EOSINOPHILS % (AUTO) 0.7 % (0-6); HEMATOCRIT 42.6 % (42.0-52.0); HEMOGLOBIN 14.6 g/dl (14.0-17.9); LYMPHOCYTES # (AUTO) 1.5 X10'3 (1.1-4.8); LYMPHOCYTES % (AUTO) 14.7 % (21-51); MEAN CORPUSCULAR HEMOGLOBIN 27.6 PG (27.0-31.0); MEAN CORPUSCULAR HGB CONC 34.3 g/dL (33.0-36.5); MEAN CORPUSCULAR VOLUME 80.5 FL (78-98); MEAN PLATELET VOLUME 8.9 FL (7.4-10.4); MONOCYTES % (AUTO) 10.4 % (2-12); NEUTROPHILS # (AUTO) 7.4 X10'3 (1.8-7.7); NEUTROPHILS % (AUTO) 73.8 % (42-75); PLATELET COUNT 240 X10'3 (140-440)
[2019-04-02 19:47] LABS: ALANINE AMINOTRANSFERASE 27 U/L (12-78); ALBUMIN 3.9 G/DL (3.4-5.0); ALBUMIN/GLOBULIN RATIO 0.9 (1.1-1.5); ALKALINE PHOSPHATASE 103 IU/L (46-116); ANION GAP 9 (8-16); ASPARTATE AMINO TRANSFERASE 23 U/L (10-37); BILIRUBIN,TOTAL 0.3 MG/DL (0.1-1.0); BLOOD UREA NITROGEN 7 MG/DL (7-18); BUN/CREATININE RATIO 7.2 (5.4-32.0); CALCIUM 8.7 MG/DL (8.5-10.1); CHLORIDE 100 MMOL/L (99-107); CREATININE 0.97 MG/DL (0.60-1.10); GLUCOSE 97 MG/DL (70-104); POTASSIUM 3.5 MMOL/L (3.5-5.1); SODIUM 139 MMOL/L (135-145); TOTAL CARBON DIOXIDE 30.5 MMOL/L (24-32); TOTAL PROTEIN 8.2 G/DL (6.4-8.2); eGFR > 90 ML/MIN
[2019-04-02 19:49] LABS: ACETAMINOPHEN < 2.0 UG/ML (10-30)
[2019-04-02 19:59] LABS: CLARITY,URINE CLEAR (Clear); COLOR,URINE YELLOW (Yellow); GLUCOSE, URINE NEGATIVE (Neg); KETONES,URINE NEGATIVE (Neg); LEUKOCYTE ESTERASE ,URINE NEGATIVE (Neg); NITRITES, URINE NEGATIVE (Neg); OCCULT BLOOD,URINE NEGATIVE (Neg); PH,URINE 5.5 (4.8-8.0); PROTEIN,URINE NEGATIVE (Neg); UROBILINOGEN,URINE 0.2 E.U/dL (0.2-1.0)
[2019-04-02 20:01] LABS: UA COLLECTION TYPE CLN CATCH MIDSTREAM
--- NOTE | 2019-04-02 22:18 | NUR ---
sitter with pt, pt is asleep rr 20.
--- NOTE | 2019-04-02 23:47 | NUR ---
Packet faxed to [facility]. Unable to confirm receipt of packet as [id number] hours.
--- NOTE | 2019-04-02 23:50 | NUR ---
pt is asleep, resting comfortably rr 16
[2019-04-03 05:43] VITALS: BP 125/63
== END 2019-04-03 06:57 | disposition home or self-care (01) ==
LOC: ER 17:23
DX: S50.812A Abrasion of left forearm, initial encounter (principal); S50.811A Abrasion of right forearm, initial encounter; R45.851 Suicidal ideations; M54.2 Cervicalgia; F41.9 Anxiety disorder, unspecified; F20.9 Schizophrenia, unspecified; Z60.2 Problems related to living alone; Z59.0 Homelessness; Z79.899 Other long term (current) drug therapy; X83.8XXA Intentional self-harm by other specified means, initial encounter; Y93.89 Activity, other specified; Y92.89 Other specified places as the place of occurrence of the external cause; Y99.8 Other external cause status
CPT/HCPCS: 36415; 80053; 80305; 80329; 81003; 85025; 99284

== ENCOUNTER 2019-05-14 10:34 | Emergency (ER) | payer MEDICAID ==
[~2019-05-14] VITALS: Ht 180.3 cm; Wt 120.0 kg
[2019-05-14 10:44] VITALS: BP 143/87
[2019-05-14] MEDS ORDERED: CEPH250T PO (15:41)
== END 2019-05-14 12:07 | disposition left against medical advice (07) ==
LOC: ER 10:35
DX: L02.413 Cutaneous abscess of right upper limb (principal); L02.414 Cutaneous abscess of left upper limb; L02.01 Cutaneous abscess of face; Z53.21 Procedure and treatment not carried out due to patient leaving prior to being seen by health care provider

== ENCOUNTER 2019-05-14 14:39 | Emergency (ER) | payer MEDICAID ==
[~2019-05-14] VITALS: Ht 180.3 cm; Wt 123.0 kg
[~2019-05-14 14:39] MED LIST changes: +LIDOcaine 1% W/epiNEPHrine 1:100,000 20ml vial ONE
[2019-05-14] MEDS ORDERED: bacitracin 15gm ointment TP ONE (15:40)
[2019-05-14] MEDS ORDERED: cephalexin 250mg capsule PO ONE (15:40)
[2019-05-14] MEDS ORDERED: CEPH250T PO (15:41)
[2019-05-14 16:07] VITALS: BP 136/56
== END 2019-05-14 16:09 | disposition home or self-care (01) ==
LOC: ER 14:40
DX: L02.01 Cutaneous abscess of face (principal); Z59.0 Homelessness; Z79.899 Other long term (current) drug therapy
CPT/HCPCS: 10060; 99283

== ENCOUNTER 2019-05-16 15:29 | Emergency (ER) | payer MEDICAID ==
[~2019-05-16] VITALS: Ht 188 cm; Wt 110.0 kg
[~2019-05-16 15:29] MED LIST changes: +CEPH250T PO; -LIDOcaine 1% W/epiNEPHrine 1:100,000 20ml vial ONE
--- NOTE | 2019-05-16 16:05 | NUR ---
in to have absess on lower jaw drained
[2019-05-16] MEDS ORDERED: normal saline 1000ML IV soln IVB ONE (16:50)
[2019-05-16 17:06] LABS: BASOPHILS # (AUTO) 0.1 X10'3 (0-0.2); BASOPHILS % (AUTO) 0.9 % (0-1); EOSINOPHILS # (AUTO) 0.2 X10'3 (0-0.9); EOSINOPHILS % (AUTO) 2.1 % (0-6); HEMATOCRIT 40.9 % (42.0-52.0); HEMOGLOBIN 13.9 g/dl (14.0-17.9); LYMPHOCYTES # (AUTO) 1.9 X10'3 (1.1-4.8); LYMPHOCYTES % (AUTO) 19.5 % (21-51); MEAN CORPUSCULAR HEMOGLOBIN 26.8 PG (27.0-31.0); MEAN CORPUSCULAR HGB CONC 33.9 g/dL (33.0-36.5); MEAN CORPUSCULAR VOLUME 78.8 FL (78-98); MEAN PLATELET VOLUME 8.8 FL (7.4-10.4); MONOCYTES % (AUTO) 10.2 % (2-12); NEUTROPHILS # (AUTO) 6.4 X10'3 (1.8-7.7); NEUTROPHILS % (AUTO) 67.3 % (42-75); PLATELET COUNT 280 X10'3 (140-440); RED BLOOD COUNT 5.18 X10'6 (4.70-6.10); RED CELL DISTRIBUTION WIDTH 13.7 % (11.5-14.5); WHITE BLOOD COUNT 9.5 X10'3 (4.5-11.0)
[2019-05-16 17:09] LABS: ALBUMIN 3.6 G/DL (3.4-5.0); ANION GAP 10 (8-16); BLOOD UREA NITROGEN 12 MG/DL (7-18); CALCIUM 8.4 MG/DL (8.5-10.1); CHLORIDE 105 MMOL/L (99-107); GLUCOSE 109 MG/DL (70-104); POTASSIUM 3.6 MMOL/L (3.5-5.1); SODIUM 142 MMOL/L (135-145); TOTAL CARBON DIOXIDE 26.8 MMOL/L (24-32); eGFR > 90 ML/MIN
[2019-05-16] MEDS ORDERED: iohexol 300mg/ml 100ml inj. ONE (17:54)
[2019-05-16] MEDS ORDERED: LIDOcaine 1% W/epiNEPHrine 1:100,000 20ml vial SQ ONE (18:15)
[2019-05-16] MEDS ORDERED: ondansetron/PF 4mg/2ml inj IV ONE (18:25)
--- NOTE | 2019-05-16 18:36 | NUR ---
RECEIVED PT LAYING ON HIS BACK . STATES HE JUST COMPLETED HIS CT. ALL VSS STATBLE. IV TO RIGHT AC PATENT WITH OUT INCIDENT . DENIES NAUSEA AT THIS TIME , RATES HIS PAIN 6/-7 OUT OF 10. PLAN OF CARE UPDATED. GLADYS CONTINUE TO REASSESS
[2019-05-16] MEDS ORDERED: CLIN150C2 PO (19:24)
[2019-05-16] MEDS ORDERED: L. R1CAP4 PO (19:24)
[2019-05-16] MEDS ORDERED: clindamycin 150mg capsule PO ONE (19:30)
[2019-05-16] MEDS ORDERED: sulfamethoxazole/trimethoprim DS (800/160mg) tablet PO ONE (19:30)
[2019-05-16 19:48] VITALS: BP 145/78
== END 2019-05-16 19:49 | disposition home or self-care (01) ==
LOC: ER 15:30
DX: L03.221 Cellulitis of neck (principal); R13.10 Dysphagia, unspecified; R05 Cough; F41.9 Anxiety disorder, unspecified; F32.9 Major depressive disorder, single episode, unspecified; F20.9 Schizophrenia, unspecified; Z60.2 Problems related to living alone; Z59.0 Homelessness; Z79.899 Other long term (current) drug therapy
CPT/HCPCS: 36415; 70491; 80048; 85025; 87070; 87075; 87077; 87186; 96374; 99284; J2405; J7030; Q9967

== ENCOUNTER 2019-09-08 14:25 | Emergency (ER) | payer MEDICAID ==
[~2019-09-08] VITALS: Ht 180.3 cm; Wt 177.6 kg
[~2019-09-08 14:25] MED LIST changes: -ESCI20TA38 PO; +ESCI20TA45 PO; +L. R1CAP4 PO; -TRAZ-219 PO; +TRAZ-256 PO
[2019-09-08] MEDS ORDERED: acetaminophen w/codeine (30MG) #3 tablet PO ONE (15:10)
[2019-09-08] MEDS ORDERED: acetaminophen 325mg tablet PO ONE (15:10)
--- NOTE | 2019-09-08 15:24 | NUR ---
pharmacy and md contacted regarding dose of tylenol 650 and tylenol with codeine 300 acetaminophen. dose equals around 1 gram of acetaminophen, and md okayed dose for pt.
--- NOTE | 2019-09-08 15:33 | NUR ---
pt has muscle tension to right index finger that is "normal" due to medication for mental health
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
[2019-09-08] MEDS ORDERED: ACET-1025 PO (15:37)
[2019-09-08 16:13] VITALS: BP 128/80
== END 2019-09-08 16:10 | disposition home or self-care (01) ==
LOC: ER 14:25
DX: S01.511A Laceration without foreign body of lip, initial encounter (principal); M54.5 Low back pain; F41.9 Anxiety disorder, unspecified; F32.9 Major depressive disorder, single episode, unspecified; F20.9 Schizophrenia, unspecified; Z60.2 Problems related to living alone; Z59.0 Homelessness; Z79.899 Other long term (current) drug therapy; V09.9XXA Pedestrian injured in unspecified transport accident, initial encounter; Y93.89 Activity, other specified; Y92.488 Other paved roadways as the place of occurrence of the external cause; Y99.8 Other external cause status
CPT/HCPCS: 12011; 74176; 99284

== ENCOUNTER 2019-12-24 13:22 | Emergency (ER) | payer MEDICAID ==
[~2019-12-24] VITALS: Ht 180.3 cm; Wt 107.0 kg
--- NOTE | 2019-12-24 14:07 | NUR ---
RAFAL Joyce at bedside.
[2019-12-24] MEDS ORDERED: mupirocin 2% ointment 22GM TP STA (14:22)
[2019-12-24] MEDS ORDERED: ibuprofen tablet 400 MG TABLET PO ONE (14:25)
[2019-12-24] MEDS ORDERED: IBUP-1984 PO (14:58)
[2019-12-24] MEDS ORDERED: SULF1TAB49 PO (14:58)
[2019-12-24] MEDS ORDERED: CEPH500C5 PO (14:58)
[2019-12-24 15:33] VITALS: BP 109/61
== END 2019-12-24 15:34 | disposition home or self-care (01) ==
LOC: ER 13:22
DX: S81.802A Unspecified open wound, left lower leg, initial encounter (principal); S81.801A Unspecified open wound, right lower leg, initial encounter; S01.80XA Unspecified open wound of other part of head, initial encounter; S51.802A Unspecified open wound of left forearm, initial encounter; S71.001A Unspecified open wound, right hip, initial encounter; S31.819A Unspecified open wound of right buttock, initial encounter; S91.302A Unspecified open wound, left foot, initial encounter; F41.9 Anxiety disorder, unspecified; F32.9 Major depressive disorder, single episode, unspecified; F20.9 Schizophrenia, unspecified; Z60.2 Problems related to living alone; Z59.0 Homelessness; Z79.899 Other long term (current) drug therapy; X58.XXXA Exposure to other specified factors, initial encounter; Y93.89 Activity, other specified; Y92.89 Other specified places as the place of occurrence of the external cause; Y99.8 Other external cause status
CPT/HCPCS: 73564; 99283

== ENCOUNTER 2019-12-30 21:33 | Emergency (ER) | payer MEDICAID ==
[~2019-12-30] VITALS: Ht 180.3 cm; Wt 128.6 kg
[~2019-12-30 21:33] MED LIST changes: +CEPH500C5 PO; +IBUP-1984 PO; +SULF1TAB49 PO
[2019-12-30 22:49] LABS: BASOPHILS # (AUTO) 0.1 X10'3 (0-0.2); BASOPHILS % (AUTO) 0.5 % (0-1); EOSINOPHILS # (AUTO) 0.2 X10'3 (0-0.9); EOSINOPHILS % (AUTO) 1.7 % (0-6); HEMATOCRIT 38.8 % (42.0-52.0); HEMOGLOBIN 12.6 g/dl (14.0-17.9); LYMPHOCYTES # (AUTO) 1.8 X10'3 (1.1-4.8); LYMPHOCYTES % (AUTO) 19.8 % (21-51); MEAN CORPUSCULAR HEMOGLOBIN 25.6 PG (27.0-31.0); MEAN CORPUSCULAR HGB CONC 32.5 g/dL (33.0-36.5); MEAN CORPUSCULAR VOLUME 78.6 FL (78-98); MEAN PLATELET VOLUME 8.5 FL (7.4-10.4); MONOCYTES # (AUTO) 0.7 X10'3 (0-0.9); MONOCYTES % (AUTO) 7.5 % (2-12); NEUTROPHILS # (AUTO) 6.5 X10'3 (1.8-7.7); NEUTROPHILS % (AUTO) 70.5 % (42-75); PLATELET COUNT 317 X10'3 (140-440); RED BLOOD COUNT 4.94 X10'6 (4.70-6.10); WHITE BLOOD COUNT 9.2 X10'3 (4.5-11.0)
[2019-12-30 23:14] LABS: ALANINE AMINOTRANSFERASE 20 U/L (12-78); ALBUMIN 3.2 G/DL (3.4-5.0); ALBUMIN/GLOBULIN RATIO 0.8 (1.1-1.5); ALKALINE PHOSPHATASE 80 IU/L (46-116); ANION GAP 8 (8-16); ASPARTATE AMINO TRANSFERASE 19 U/L (10-37); BILIRUBIN,TOTAL 0.2 MG/DL (0.1-1.0); BLOOD UREA NITROGEN 9 MG/DL (7-18); BUN/CREATININE RATIO 10.8 (5.4-32.0); CALCIUM 8.6 MG/DL (8.5-10.1); CHLORIDE 106 MMOL/L (99-107); CREATININE 0.83 MG/DL (0.60-1.10); ETHANOL < 0.010 GM/DL (0.0-0.010); GLUCOSE 106 MG/DL (70-104); POTASSIUM 3.1 MMOL/L (3.5-5.1); SODIUM 143 MMOL/L (135-145); TOTAL CARBON DIOXIDE 29.3 MMOL/L (24-32); eGFR > 90 ML/MIN
[2019-12-31 01:04] LABS: URINE AMPHETAMINE SCREEN POSITIVE (Neg); URINE BARBITUATE SCREEN NEGATIVE (Neg); URINE BENZODIAZEPINES SCREEN NEGATIVE (Neg); URINE CANNABINOID SCREEN NEGATIVE (Neg); URINE COCAINE SCREEN NEGATIVE (Neg); URINE METHADONE SCREEN NEGATIVE (Neg); URINE OPIATE SCREEN POSITIVE (Neg); URINE PHENCYCLIDINE SCREEN NEGATIVE (Neg)
--- NOTE | 2019-12-31 10:15 | NUR ---
Pt is resting with even and unlabored respirations. Pt is within line of site of nurse's station.
--- NOTE | 2019-12-31 11:20 | NUR ---
No change in condition, continuing to monitor.
--- NOTE | 2019-12-31 12:00 | NUR ---
Pt is resting, no change in condition, Respirations even and unlabored. Pt is awaiting mental health evaluation.
[2019-12-31] MEDS ORDERED: SULF1TAB49 PO (12:37)
[2019-12-31] MEDS ORDERED: IBUP-1984 PO (12:37)
[2019-12-31] MEDS ORDERED: LACT1CAP26 PO (12:37)
[2019-12-31] MEDS ORDERED: CEPH-572 PO (12:37)
--- NOTE | 2019-12-31 13:00 | NUR ---
Pt is resting, no complaints, even and unlabored respirations.
--- NOTE | 2019-12-31 14:02 | NUR ---
RESTING WITH NO COMPLAINTS, IN LINE OF SIGHT OF NURSE'S STATION.
--- NOTE | 2019-12-31 14:26 | NUR ---
Breaking primary RN. Pt denies any needs at this time.
--- NOTE | 2019-12-31 14:42 | NUR ---
Pt offered lunch and he reports he is not hungry at this time.
[2019-12-31] MEDS ORDERED: paliperidone palmitate inj 234 MG/1.5 ML SYRINGE IM SCH (15:35)
[2019-12-31] MEDS ORDERED: ibuprofen tablet 400 MG TABLET PO PRN (15:35)
[2019-12-31 16:13] LABS: CLARITY,URINE CLEAR (Clear); COLOR,URINE YELLOW (Yellow); GLUCOSE, URINE NEGATIVE (Neg); KETONES,URINE TRACE mg/dl (Neg); LEUKOCYTE ESTERASE ,URINE NEGATIVE (Neg); NITRITES, URINE NEGATIVE (Neg); OCCULT BLOOD,URINE NEGATIVE (Neg); PH,URINE 6.5 (4.8-8.0); PROTEIN,URINE NEGATIVE (Neg)
[2019-12-31 16:22] LABS: UA COLLECTION TYPE NON-SPECIFIED
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
--- NOTE | 2019-12-31 16:38 | NUR ---
PACKET FAXED TO [facility]
--- NOTE | 2019-12-31 17:52 | NUR ---
Pt sleeping on right side. Respirations even and unlabored.
--- NOTE | 2019-12-31 18:50 | NUR ---
Patient is sitting up, he is well oriented and eating dinner. Patient experienced three episodes of food emesis within two minutes. Patient denies any SOB, chest discomfort, he denies nausea despite regurgitating. No diaphoresis present. VS 115/54 68 16 Sa02 is 96 percent on room air. Oral temp is 98.8
[2019-12-31] MEDS ORDERED: ondansetron 4mg rapidly disintigrating tab PO ONE (19:05)
--- NOTE | 2019-12-31 19:09 | NUR ---
Patient was given Zofran 4mg ODT for treatment of N/V. Patient is now being interviewed by CELENA Vance from [facility].
--- NOTE | 2019-12-31 19:27 | NUR ---
Patient is resting in bed, mid fowlers position. Patient smiles and looks around. Patient oriented to person. 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 Patient is cooperative. He uses a walker now for stability. Patient will be closely observed for safety of patient and staff.
--- NOTE | 2019-12-31 19:28 | NUR ---
Patient is awake and well oriented. No more emesis s/p ODT Zolfran. Patient has been evaluated by [facility], a decision is pending on his 5150 status. This patient denies S/I, H/I, or any hallucinations at this time. Patient is cooperative with staff and medication compliant.
[2019-12-31] MEDS ORDERED: cephalexin 500mg capsule PO SCH (20:00)
[2019-12-31] MEDS ORDERED: sulfamethoxazole/trimethoprim DS (800/160mg) tablet PO SCH (20:00)
[2019-12-31] MEDS: lactobacillus rhamnosus 10,000 MMU CELLS/CAPSULE PO SCH (20:06)
[2019-12-31] MEDS: benztropine 1mg tablet PO SCH (20:07)
[2019-12-31] MEDS: mupirocin 2% ointment 22GM TP SCH (20:09)
[2019-12-31] MEDS ORDERED: haloperidol 5mg tablet PO SCH (21:00)
[2019-12-31] MEDS ORDERED: traZODone 50mg tablet PO SCH (21:00)
[2019-12-31] MEDS ORDERED: HALO10TA13 PO (21:01)
[2019-12-31] MEDS ORDERED: HALO5TAB PO (21:01)
[2019-12-31] MEDS ORDERED: BENZ2TAB7 PO (21:01)
[2019-12-31] MEDS ORDERED: ESCI20TA45 PO (21:01)
[2019-12-31] MEDS ORDERED: TRAZ-256 PO (21:01)
--- NOTE | 2019-12-31 23:13 | NUR ---
Patient will discharge at 0900 on 01/01/20. A member of the [facility] crew will pick this patient up, assist him with getting his Rx, and he will then be taken to the [facility].
--- NOTE | 2020-01-01 01:40 | NUR ---
Patient is sleeping quietly on his right side. A warm blanket is given. Patient self repositions. In view from nurses station.
--- NOTE | 2020-01-01 03:45 | NUR ---
Patient is sleeping quietly in a supine position.
[2020-01-01 06:09] VITALS: BP 109/51
[2020-01-01] MEDS ORDERED: ESCITALOPRAM OXALATE 5 MG TABLET PO SCH (08:00)
[2020-01-01] MEDS ORDERED: haloperidol 5mg tablet PO SCH (08:00)
[2020-01-01] MEDS: benztropine 1mg tablet PO SCH (08:15)
[2020-01-01] MEDS: mupirocin 2% ointment 22GM TP SCH (08:16)
[2020-01-01] MEDS: lactobacillus rhamnosus 10,000 MMU CELLS/CAPSULE PO SCH (08:16)
--- NOTE | 2020-01-01 08:39 | NUR ---
in bed resting took morning meds but does not want breakfast waiting for ride
== END 2020-01-01 09:49 | disposition home or self-care (01) ==
LOC: ER 21:34
DX: F20.9 Schizophrenia, unspecified (principal); R45.850 Homicidal ideations; R45.851 Suicidal ideations; F41.9 Anxiety disorder, unspecified; F32.9 Major depressive disorder, single episode, unspecified; Z59.0 Homelessness; Z60.2 Problems related to living alone; Z79.899 Other long term (current) drug therapy
CPT/HCPCS: 36415; 80053; 80305; 80320; 81003; 85025; 96372; 99285

== ENCOUNTER 2020-01-12 21:21 | Emergency (ER) | payer MEDICAID ==
[~2020-01-12] VITALS: Ht 180.3 cm; Wt 130.0 kg
[~2020-01-12 21:21] MED LIST changes: -CEPH250T PO; -CEPH500C5 PO; -L. R1CAP4 PO; +LACT1CAP26 PO; -SULF1TAB49 PO
[2020-01-13 01:41] LABS: URINE AMPHETAMINE SCREEN POSITIVE (Neg); URINE BARBITUATE SCREEN NEGATIVE (Neg); URINE BENZODIAZEPINES SCREEN NEGATIVE (Neg); URINE CANNABINOID SCREEN NEGATIVE (Neg); URINE COCAINE SCREEN NEGATIVE (Neg); URINE METHADONE SCREEN NEGATIVE (Neg); URINE OPIATE SCREEN POSITIVE (Neg); URINE PHENCYCLIDINE SCREEN NEGATIVE (Neg)
[2020-01-13 01:42] LABS: BASOPHILS # (AUTO) 0.1 X10'3 (0-0.2); BASOPHILS % (AUTO) 0.6 % (0-1); EOSINOPHILS # (AUTO) 0.1 X10'3 (0-0.9); EOSINOPHILS % (AUTO) 1.2 % (0-6); HEMATOCRIT 43.1 % (42.0-52.0); HEMOGLOBIN 14.5 g/dl (14.0-17.9); LYMPHOCYTES # (AUTO) 1.7 X10'3 (1.1-4.8); LYMPHOCYTES % (AUTO) 17.2 % (21-51); MEAN CORPUSCULAR HEMOGLOBIN 26.3 PG (27.0-31.0); MEAN CORPUSCULAR HGB CONC 33.6 g/dL (33.0-36.5); MEAN CORPUSCULAR VOLUME 78.3 FL (78-98); MONOCYTES # (AUTO) 0.9 X10'3 (0-0.9); MONOCYTES % (AUTO) 9.5 % (2-12); NEUTROPHILS # (AUTO) 6.9 X10'3 (1.8-7.7); NEUTROPHILS % (AUTO) 71.5 % (42-75); PLATELET COUNT 297 X10'3 (140-440); RED BLOOD COUNT 5.51 X10'6 (4.70-6.10); RED CELL DISTRIBUTION WIDTH 13.8 % (11.5-14.5); WHITE BLOOD COUNT 9.6 X10'3 (4.5-11.0)
[2020-01-13 01:48] LABS: ALANINE AMINOTRANSFERASE 21 U/L (12-78); ALBUMIN 3.7 G/DL (3.4-5.0); ALBUMIN/GLOBULIN RATIO 0.8 (1.1-1.5); ALKALINE PHOSPHATASE 99 IU/L (46-116); ANION GAP 6 (8-16); ASPARTATE AMINO TRANSFERASE 20 U/L (10-37); BILIRUBIN,TOTAL 0.6 MG/DL (0.1-1.0); BLOOD UREA NITROGEN 11 MG/DL (7-18); BUN/CREATININE RATIO 13.3 (5.4-32.0); CALCIUM 9.3 MG/DL (8.5-10.1); CHLORIDE 98 MMOL/L (99-107); CREATININE 0.83 MG/DL (0.60-1.10); ETHANOL < 0.010 GM/DL (0.0-0.010); GLUCOSE 100 MG/DL (70-104); SODIUM 138 MMOL/L (135-145); TOTAL CARBON DIOXIDE 33.7 MMOL/L (24-32); TOTAL PROTEIN 8.2 G/DL (6.4-8.2); eGFR > 90 ML/MIN
[2020-01-13 01:49] LABS: POTASSIUM 2.7 MMOL/L (3.5-5.1)
[2020-01-13] MEDS ORDERED: potassium Cl 20 mEq SR tablet PO STA ×2 (01:59→22:09)
--- NOTE | 2020-01-13 02:05 | NUR ---
EDMD CHICA MADE AWARE OF PT POTASSIUM 2.7. GIVEN VERBAL ORDER FOR 40MEQ POTASSIUM TAB X1 DOSE NOW. ORDER PLACED REQUESTED
--- NOTE | 2020-01-13 04:23 | NUR ---
PACKET FAXED TO MENTAL HEALTH
--- NOTE | 2020-01-13 07:15 | NUR ---
Patient asleep at this time.
--- NOTE | 2020-01-13 07:15 | NUR ---
patient moved to bed 16.
--- NOTE | 2020-01-13 07:58 | NUR ---
NO NOTED HALLUCINATION AT THIS TIME.
--- NOTE | 2020-01-13 11:14 | NUR ---
Pt resting comfortably on R side. RR equal and non labored
--- NOTE | 2020-01-13 12:59 | NUR ---
pt resting in bed. no s/s of distress or pain. no SI or HI at this time. reports that he is here because he is off of his meds and needs to be on them again. no hallucinations at this time. pt resting on back with no reported needs. will continue to monitor.
--- NOTE | 2020-01-13 15:08 | NUR ---
PT RESTING IN BED ON LEFT SIDE. RR OF 15. NO S/S OF DISTRESS OR PAIN. WILL CONTINUE TO TO MONITOR.
--- NOTE | 2020-01-13 18:33 | NUR ---
PT APPEARS TO BE SLEEPING ON RIGHT SIDE, RR EVEN AND UNLABORED. WILL CONTINUE TO MONITOR
--- NOTE | 2020-01-13 19:07 | NUR ---
DURING ASSESSMENT, PT STATES SI AND PLAN TO JUMP IN FRONT OF CARS AND ADMITTED TO ATTEMPTING TO BEFORE COMING TO ER. NO PHYSICAL COMPLAINTS AT THIS TIME.
--- NOTE | 2020-01-13 20:13 | NUR ---
PT IS SUPINE IN BED, REGULAR BREATHING PRESENT, APPEARS TO BE ASLEEP
--- NOTE | 2020-01-13 21:30 | NUR ---
PT SLEEPING ON RIGHT SIDE, RR EVEN AND UNLABORED, NO NEEDS AT THIS TIME
[2020-01-13] MEDS ORDERED: potassium Cl 10 mEq/100mL bag IV ONE (22:10)
--- NOTE | 2020-01-13 22:30 | NUR ---
PT SLEEPING SUPINE, RR EVEN AND UNLABORED, NO NEEDS AT THIS TIME
--- NOTE | 2020-01-13 23:30 | NUR ---
PT RESTING SUPINE; UPDATED PT ON PLAN OF CARE TO GO TO BEHAVIORAL HEALTH UNIT - AGREEABLE TO PLAN, NO NEEDS AT THIS TIME.
[2020-01-14 00:10] VITALS: BP 115/69
--- NOTE | 2020-01-14 00:30 | NUR ---
PT RESTING SUPINE, PT AGREEABLE TO REDRAW OF POTASSIUM. NO NEEDS AT THIS TIME
[2020-01-14] MEDS ORDERED: potassium Cl 20 mEq SR tablet PO STA (02:26)
[2020-01-14] MEDS ORDERED: potassium Cl 20 mEq SR tablet PO SCH (06:30)
[2020-01-16] MEDS ORDERED: TRAZ-256 PO (16:23)
[2020-01-16] MEDS ORDERED: ESCI5TAB PO (16:23)
[2020-01-16] MEDS ORDERED: HALO5TAB PO (16:23)
[2020-01-16] MEDS ORDERED: LACT1CAP26 PO (16:23)
[2020-01-16] MEDS ORDERED: CLE150C PO (16:23)
[2020-01-16] MEDS ORDERED: NICO-687 TD (16:23)
[2020-01-16] MEDS ORDERED: BENZ1TAB7 PO (16:23)
== END 2020-01-14 04:26 ==
LOC: ER 21:21
DX: R45.851 Suicidal ideations (principal); F41.9 Anxiety disorder, unspecified; F32.9 Major depressive disorder, single episode, unspecified; F20.9 Schizophrenia, unspecified; F15.90 Other stimulant use, unspecified, uncomplicated; F11.90 Opioid use, unspecified, uncomplicated; Z60.2 Problems related to living alone; Z59.0 Homelessness; Z79.899 Other long term (current) drug therapy
CPT/HCPCS: 36415; 80053; 80305; 80320; 84132; 85025; 99285; J3480

== ENCOUNTER 2020-02-11 15:34 | Inpatient (IN) | payer MEDICAID ==
[~2020-02-11] VITALS: Ht 182.9 cm; Wt 100.6 kg
[~2020-02-11 15:34] MED LIST changes: +BENZ1TAB7 PO; -BENZ2TAB7 PO; +CLE150C PO; -ESCI20TA45 PO; +ESCI5TAB PO; -HALO10TA13 PO; +NICO-687 TD
[2020-02-11] MEDS ORDERED: LORazepam 1 MG tablet PO PRN (16:30)
[2020-02-11] MEDS ORDERED: mag hydrox/Alum hydrox/simeth 30ml oral suspension PO PRN (16:30)
[2020-02-11] MEDS ORDERED: acetaminophen 325mg tablet PO PRN ×2 (16:30)
[2020-02-11] MEDS ORDERED: traZODone 50mg tablet PO PRN (16:30)
[2020-02-11] MEDS ORDERED: magnesium hydroxide 30ml (MOM) UD suspension PO PRN (16:30)
[2020-02-11] MEDS ORDERED: loperamide 2mg capsule PO PRN (16:30)
[2020-02-11] MEDS ORDERED: HALO5TAB PO (16:47)
[2020-02-11] MEDS ORDERED: PALI234D IM (16:47)
[2020-02-11] MEDS ORDERED: BENZ2TAB7 PO (16:47)
[2020-02-11] MEDS ORDERED: ESCI20TA15 PO (16:47)
[2020-02-11 16:50] VITALS: BP 122/74
[2020-02-11] MEDS ORDERED: ibuprofen tablet 400 MG TABLET PO PRN (16:55)
[2020-02-11] MEDS ORDERED: paliperidone palmitate inj 234 MG/1.5 ML SYRINGE IM SCH (16:55)
[2020-02-11 17:02] VITALS: BP 100/59
[2020-02-11] MEDS ORDERED: NICOTINE POLACRILEX 2 MG LOZENGE BC PRN (17:40)
--- NOTE | 2020-02-11 17:41 | NUR ---
ADMIT NOTE The patient is a 24 year old male with suicidal thoughts and plan to OD or cut himself. He is homeless and using heroin and meth. He reports feelings of worthlessness and hopelessness. He has been off his psych meds for two months. He reports auditory and visual hallucinations at times.
[2020-02-11 19:00] VITALS: BP 103/45
[2020-02-11] MEDS: benztropine 1mg tablet PO SCH (19:07)
[2020-02-11] MEDS: haloperidol 5mg tablet PO SCH (19:07)
[2020-02-11 21:03] VITALS: BP 110/49
[2020-02-11 22:14] LABS: ALANINE AMINOTRANSFERASE 20 U/L (12-78); ALBUMIN 3.2 G/DL (3.4-5.0); ALBUMIN/GLOBULIN RATIO 0.8 (1.1-1.5); ALKALINE PHOSPHATASE 80 IU/L (46-116); ANION GAP 6 (8-16); ASPARTATE AMINO TRANSFERASE 17 U/L (10-37); BILIRUBIN,TOTAL 0.2 MG/DL (0.1-1.0); BLOOD UREA NITROGEN 16 MG/DL (7-18); BUN/CREATININE RATIO 18.6 (5.4-32.0); CALCIUM 8.7 MG/DL (8.5-10.1); CHLORIDE 103 MMOL/L (99-107); CREATININE 0.86 MG/DL (0.60-1.10); GLUCOSE 93 MG/DL (70-104); POTASSIUM 3.8 MMOL/L (3.5-5.1); SODIUM 141 MMOL/L (135-145); TOTAL CARBON DIOXIDE 31.9 MMOL/L (24-32); eGFR > 90 ML/MIN
--- NOTE | 2020-02-12 01:09 | NUR ---
BRADYCARDIA: Client HR was 42 bpm. An EKG was obtained and showed Sinus Bradycardia (HR of 41) per Dr. Fofana. Dr. Gonsalez reviewed chart and noted that client had previous periods of bradycardia and low K+. A CMP was ordered. The client was aysmptomatic, with exception c/o fatigue. K+ was WNL. RN will continue to monitor.
--- NOTE | 2020-02-12 02:21 | NUR ---
NURSING PROGRESS NOTE: Legal hold: 5150 Client on involuntary status for DTS Report received from CELENA Baldwin with use of SBAR. Why they are here: The patient is a 24 year old male with suicidal thoughts and plan to OD or cut himself. He is homeless and using heroin and meth. He reports feelings of worthlessness and hopelessness. He has been off his psych meds for two months. He reports auditory and visual hallucinations at times. Assessment What has happened this shift: This patient is in bed lying in supine position. When asked if he is having suicidal thoughts or hearing voices he states not currently at this time. I have thoughts off and on. When asked if he has a plan he states probably to take too much Trazodone. Patient is alert and oriented and does not have any pain at this time. Patient states I was off my schizophrenia medication and supplemented it with meth and heroin and that was bad for my brain. Also states that he wants to get help here and that he is tired and wants to take a nap. Patient is compliant with medications. Patient had a low HR. 42 bpm and [address] Gonsalez ordered a CMP to check electrolytes which were all WNL. Patient asked for a snack after EKG. [place] and orange juice provided then patient went to bed and fell asleep. S/I, H/I: Denies at this time. States he gets those thoughts off and on. A/VH: Denies. Sleep: Sleeping well. ADL's: Independent Group attendance: None Were meds taken: Yes, medication compliant. Any med S/E: None observed or reported. Mental Status Exam Appearance: clean and appropriate Eye contact: Good. Behavior: Cooperative. Speech: Clear and appropriate Mood: stable, depressed, feeling tired. Affect: appropriate Thought process: linear Thought Content: appropriate Cognition: Alert and oriented Insight: Poor Judgment: Poor Interventions PRN's used: none Therapeutic interventions:1:1 assessment, maintained a safe and therapeutic environment, provided clear and simple instructions, monitored behavior and need for intervention, provided reassurance as needed, encouragement to perform personal hygiene, limit setting, positive reinforcement, Q 15 minute safety checks. Restraints/seclusion/emergency medication: None Justification of Continued Inpatient Treatment: Pt. requires interruption of current crisis. Patient requires Medication adjustments and a safe and therapeutic environment.
[2020-02-12] MEDS: nicotine 21mg patch - 24 hr TD SCH (08:10)
[2020-02-12] MEDS: ESCITALOPRAM OXALATE 5 MG TABLET PO SCH (08:11)
[2020-02-12] MEDS: haloperidol 5mg tablet PO SCH ×2 (08:11→20:19)
[2020-02-12] MEDS: benztropine 1mg tablet PO SCH ×2 (08:11→20:19)
[2020-02-12 08:48] VITALS: BP 97/61
[2020-02-12 09:26] LABS: CHOL/HDL RATIO 5.6 (0.00-4.99); CHOLESTEROL 175 MG/DL (0-200); HDL CHOLESTEROL 31 MG/DL (35-60); LDL CHOLESTEROL 120 MG/DL (50-100); TRIGLYCERIDES 151 MG/DL (20-135)
[2020-02-12 09:35] LABS: HEMOGLOBIN A1C 5.7 % (4.5-6.2)
--- NOTE | 2020-02-12 17:07 | NUR ---
NURSING PROGRESS NOTE: Legal hold: 5150 Client on involuntary status for DTS Report received from LIANA Griggs with use of SBAR. Why they are here: The patient is a 24 year old male with suicidal thoughts and plan to OD or cut himself. He is homeless and using heroin and meth. He reports feelings of worthlessness and hopelessness. He has been off his psych meds for two months. He reports auditory and visual hallucinations at times. Assessment What has happened this shift: Pt came to breakfast and took medications. He was quiet and pleasant. He took naps through the day. He went to group but did not want to go outside. He was mostly isolative to room and slept. He came out for snack and then went back to bed. S/I, H/I: Pt Denies A/VH: Pt Denies. Sleep: 8.75h per sleep assessment ADL's: Independent Group attendance: Yes Were meds taken: Yes Any med S/E: None noted Mental Status Exam Appearance: Wearing green unit scrubs. Eye contact: Fair Behavior: Quiet, isolative Speech: Soft Mood: Subdued, depressed Affect: Responsive Thought process: Linear Thought Content: Circumstantial Cognition: Alert Insight: Poor Judgment: Poor Interventions PRN's used: none Therapeutic interventions:1:1 assessment, maintained a safe and therapeutic environment, provided clear and simple instructions, monitored behavior and need for intervention, provided reassurance as needed, encouragement to perform personal hygiene, limit setting, positive reinforcement, Q 15 minute safety checks. Restraints/seclusion/emergency medication: None Justification of Continued Inpatient Treatment: Pt. requires interruption of current crisis. Patient requires Medication adjustments and a safe and therapeutic environment
[2020-02-12 19:00] VITALS: BP 110/49
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
[2020-02-13] MEDS: benztropine 1mg tablet PO SCH ×2 (07:35→20:17)
[2020-02-13] MEDS: haloperidol 5mg tablet PO SCH ×2 (07:36→20:17)
[2020-02-13] MEDS: nicotine 21mg patch - 24 hr TD SCH (07:36)
[2020-02-13] MEDS: ESCITALOPRAM OXALATE 5 MG TABLET PO SCH (07:36)
[2020-02-13 08:00] VITALS: BP 114/82
--- NOTE | 2020-02-13 16:25 | NUR ---
Nursing Progress Note: David Legal hold: 5150 Client on involuntary status for DTS Report received from Katrin Gottlieb RN with use of SBAR. Why they are here: The patient is a 24 year old male with suicidal thoughts and plan to OD or cut himself. He is homeless and using heroin and meth. He reports feelings of worthlessness and hopelessness. He has been off his psych meds for two months. He reports auditory and visual hallucinations at times. Assessment What has happened this shift: Client was in bed to begin the shift and woke easily for medications and assessment. Client denies any somatic complaints and was amicable to the intervention. Client reported for breakfast and then returned to his room to rest. He does not appear internally preoccupied and has been very cordial and friendly with Staff as well as his peer group. Client is visible and active on the unit and his behaviors seem appropriate. Client is medication compliant and his insight seems good as exhibited by statements such as, I need to quit street drugs and do something about myself and I got myself here by messing up. Client claims that he is, done with drugs and wants to, get a new set of friends and hang out normally. S/I, H/I: Denies A/VH: Denies. Sleep: See sleep assessment ADL's: Independent Group attendance: Were meds taken: Yes Any med S/E: None reported or observed. Mental Status Exam Appearance: Disheveled man with full lafelur that has a lesion present in right cheek area, Wearing green unit scrubs. Eye contact: Fair Behavior: Quiet, isolative, friendly Speech: Soft Mood: Depressed Affect: Blunted Thought process: Linear Thought Content: Circumstantial Cognition: Alert Insight: Poor Judgment: Poor Interventions PRN's used: none Therapeutic interventions:1:1 assessment, maintained a safe and therapeutic environment, provided clear and simple instructions, monitored behavior and need for intervention, provided reassurance as needed, encouragement to perform personal hygiene, limit setting, positive reinforcement, Q 15 minute safety checks. Restraints/seclusion/emergency medication: None Justification of Continued Inpatient Treatment: Pt. requires interruption of current crisis. Patient requires Medication adjustments and a safe and therapeutic environment
[2020-02-13 19:49] VITALS: BP 117/50
[2020-02-13] MEDS: traZODone 50mg tablet PO SCH (20:20)
--- NOTE | 2020-02-14 01:56 | NUR ---
Nursing Progress Note: Legal hold: 5150 Client on involuntary status for DTS Report received from CELENA Baldwin with use of SBAR. Why they are here: The patient is a 24 year old male with suicidal thoughts and plan to OD or cut himself. He is homeless and using heroin and meth. He reports feelings of worthlessness and hopelessness. He has been off his psych meds for two months. He reports auditory and visual hallucinations at times. Assessment What has happened this shift: The patient was seen at bedside for 1:1 assessment. He was asleep, and didn't want to talk, but talked of his mother. "I talked to my mother today. She's got major issues, and when I talk to her, she makes me depressed...that's how I feel now." he states not sleeping well last night due to his roommate"s agitation. "I got lots of rest today though." His Trazodone was increased today, but said he didn't need it yet. He remained isolated to his room, and slept all evening. S/I, H/I: Denies A/VH: Denies. Sleep: See sleep assessment ADL's: Independent Group attendance: No night groups Were meds taken: Yes Any med S/E: None reported or observed. Mental Status Exam Appearance: Disheveled man with full lafleur that has a blank spot, wearing green unit scrubs. Eye contact: Fair Behavior: Quiet, isolative, friendly, tired Speech: Soft Mood: Depressed Affect: Blunted Thought process: Linear Thought Content: Circumstantial Cognition: Alert Insight: Poor Judgment: Poor Interventions PRN's used: none Therapeutic interventions:1:1 assessment, maintained a safe and therapeutic environment, provided clear and simple instructions, monitored behavior and need for intervention, provided reassurance as needed, encouragement to perform personal hygiene, limit setting, positive reinforcement, Q 15 minute safety checks. Restraints/seclusion/emergency medication: None Justification of Continued Inpatient Treatment: Pt. requires interruption of current crisis. Patient requires Medication adjustments and a safe and therapeutic environment
[2020-02-14] MEDS: ESCITALOPRAM OXALATE 5 MG TABLET PO SCH (07:56)
[2020-02-14] MEDS: benztropine 1mg tablet PO SCH ×2 (07:56→20:44)
[2020-02-14] MEDS: haloperidol 5mg tablet PO SCH ×2 (07:56→20:44)
[2020-02-14] MEDS: nicotine 21mg patch - 24 hr TD SCH (07:59)
[2020-02-14 08:00] VITALS: BP 109/52
[2020-02-14] MEDS ORDERED: tuberculin, purif. prot. deriv. 5 units/0.1ml ID ONE (11:15)
--- NOTE | 2020-02-14 15:28 | NUR ---
DCP Presenting Issues: Pt's 5150 Hold expires today @ 4:00 pm, pt requesting assistance w/dcp activities. Interventions: SS met w/pt and engaged him in dcp activities. pt identified goal of addressing substance use and housing issues. SS provided info re [facility] services, pt would like a referral to [facility]. SS discussed the basic [facility]'s rules pt agreed not to walk off campus and will participate in groups there. SS discussed need for pt to sign a voluntary stay agreement w/[facility] to allow time for coordination w/[facility], pt agreeable to this SS informed attending physician and recommend that pt signs voluntary stay agreement so SS can facilitate transfer to [facility]. SS faxed [facility] referral to [facility] office and requested that a chest x-ray to r/o TB be completed for pt. Plan: SS will f/u with [facility] tomorrow to coordinate placement. Avis Hernandez LCSW Addendum: 02/14/20 at 1535 by Avis Hernandez SS Amended: Links added.
--- NOTE | 2020-02-14 17:44 | NUR ---
Nursing Progress Note: Legal hold: 5150 Client on involuntary status for DTS Report received from RN with use of SBAR. Why they are here: The patient is a 24 year old male with suicidal thoughts and plan to OD or cut himself. He is homeless and using heroin and meth. He reports feelings of worthlessness and hopelessness. He has been off his psych meds for two months. He reports auditory and visual hallucinations at times. Assessment What has happened this shift: Received Pt in bed sleeping w/o distress at beginning of shift. Pt awoke and cooperative with vitals. Pt returned to sleep and was woken up for breakfast and AM meds. Pt ate and cooperative with taking his medications. Pt has an open area on face which he states was on antibiotics for I was doing meth and homeless and picking at it. Pt instructed to wash hands regularly today. Pt spoke about a bad dream with a smile on his face. Pt lethargic and returned to bed after breakfast and did not want to attend AM group. He had phone conversation with his mother today and wants to go to [facility] from here and engage in drug Tx. Im done with street drugs and cigarettes. Pt took nap in afternoon and woke for dinner. Seen interacting well with other Pts. S/I, H/I: Denies A/VH: Denies. Sleep: See sleep assessment ADL's: Independent Group attendance: Were meds taken: Yes Any med S/E: None reported or observed. Mental Status Exam Appearance: In own clothes Eye contact: Fair Behavior: Quiet, isolative, friendly Speech: Soft Mood: Pleasant Affect: Good range Thought process: Linear Thought Content: Circumstantial Cognition: Alert Insight: Poor Judgment: Poor Interventions PRN's used: None Therapeutic interventions:1:1 assessment, maintained a safe and therapeutic environment, provided clear and simple instructions, monitored behavior and need for intervention, provided reassurance as needed, encouragement to perform personal hygiene, limit setting, positive reinforcement, Q 15 minute safety checks. Restraints/seclusion/emergency medication: None Justification of Continued Inpatient Treatment: Pt. requires interruption of current crisis. Patient requires Medication adjustments and a safe and therapeutic environment
[2020-02-14 20:32] VITALS: BP 108/53
[2020-02-14] MEDS: traZODone 50mg tablet PO SCH (20:44)
--- NOTE | 2020-02-15 00:34 | NUR ---
Nursing Progress Note: Legal hold: Voluntary Client on voluntary status for DTS Report received from CELENA Baldwin with use of SBAR. Why they are here: The patient is a 24 year old male with suicidal thoughts and plan to OD or cut himself. He is homeless and using heroin and meth. He reports feelings of worthlessness and hopelessness. He has been off his psych meds for two months. He reports auditory and visual hallucinations at times. Assessment What has happened this shift: The patient was found asleep at shift change. When his room was entered, he was not easily aroused. When he finally woke, "I just want to sleep. Nothing else, just sleep." He would not allow assessment. He was woken for meds, and accepted, but went right back to sleep. The patient has apparently been accepted to [facility], and needed PPD that had been ordered for earlier in the day, but was not given. He had to be woke for that, but accepted, then back to sleep. S/I, H/I: Denies A/VH: Denies. Sleep: See sleep assessment ADL's: Independent Group attendance: No night groups Were meds taken: Yes Any med S/E: None reported or observed. Mental Status Exam Appearance: Disheveled man with full lafleur that has a round lesion on the right side of face, wearing green unit scrubs. Eye contact: Fair Behavior: Quiet, isolative, friendly, tired, sleeping Speech: Soft Mood: Depressed Affect: Blunted Thought process: Linear Thought Content: Circumstantial Cognition: Alert Insight: Poor Judgment: Poor Interventions PRN's used: none Therapeutic interventions:1:1 assessment, maintained a safe and therapeutic environment, provided clear and simple instructions, monitored behavior and need for intervention, provided reassurance as needed, encouragement to perform personal hygiene, limit setting, positive reinforcement, Q 15 minute safety checks. Restraints/seclusion/emergency medication: None Justification of Continued Inpatient Treatment: Pt. requires interruption of current crisis. Patient requires Medication adjustments and a safe and therapeutic environment
[2020-02-15 08:09] VITALS: BP 104/52
[2020-02-15] MEDS: nicotine 21mg patch - 24 hr TD SCH (08:11)
[2020-02-15] MEDS: haloperidol 5mg tablet PO SCH (08:12)
[2020-02-15] MEDS: benztropine 1mg tablet PO SCH (08:12)
[2020-02-15] MEDS: ESCITALOPRAM OXALATE 5 MG TABLET PO SCH (08:13)
--- NOTE | 2020-02-15 10:00 | NUR ---
Group Therapy: Process Group This Clinicians goal for this process group were as follows: (1) Ask scaling questions about Patients current anxiety, depression, and irritability symptoms as a check-in. (2) Provide psychoeducation on differences between passive, passive-aggressive, assertive, and aggressive forms of communication. (3) Provide psychoeducation on fair fighting rules to illustrate principles of assertive communication. (4) Process Patients thoughts and reflections on this topic within the group milieu. Patient identified experiencing the following levels of anxiety, depression, and anger/irritability while present in the group milieu. Anxiety: 01/27 Depression: 12/28 Anger/irritability: 01/27 Patient presented as open and cooperative within the group milieu. Patient was dressed in nondescript, personal clothing that were appropriate within the milieu. Patient's thought content was clear, and concrete. Patient's thought process was clear, coherent, and linear. This Clinician did not observe Patient responding to any internal stimuli during session. Patient presented as verbally engaged and nonobtrusive during the process group. 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 Patient also reported that he had done, "Journaling exercises" at [facility] that emphasized the importance of direct, and assertive communication. Joseph Valdovinos MA, SHELLI Addendum: 02/15/20 at 1112 by Joseph Valdovinos SS Amended: Links added.
--- NOTE | 2020-02-15 13:14 | NUR ---
DCP Presenting Issues: Pt's feeling anxious and expressed desire to leave, this would diminish his chances of getting into [facility] & a residential drug rehab program. Interventions: SS met w/pt utilized CBT to support pt in processing his thought re leaving today vs tomorrow & be transported to [facility]. Pt acknowledged that he understood the consequences of leaving today & expressed, "I just want my freedom back". SS asked pt to hold off on leaving until he's heard from his [facility] STAR CM & prescriber here, pt agreed to stay for lunch. SS had t/c w/Diane, [facility] Senior Planning Manager, per t/c Diane will ask pt's STAR CM to call pt @ [facility] and talk to pt to support pt in staying @ [facility] for 1 more day. Attending PA alerted, she will discuss this w/pt. Attending PA signed physician's report, SS faxed it along w/pre-assessment to [facility] to facilitate pt transitioning there upon d/c. Plan: SS to f/u with pt later this afternoon. Avis Hernandez LCSW Addendum: 02/15/20 at 1328 by Avis Hernandez Amended: Links added.
[2020-02-15] MEDS ORDERED: paliperidone palmitate 156 mg/ml inj.**IM only IM ONE (13:55)
--- NOTE | 2020-02-15 13:58 | NUR ---
DISCHARGE PLANNING/[facility] INTERVIEW Assisted David with [facility] via FaceTime with Zbigniew at [facility]. David was accepted to [facility] for tomorrow. David reported he wants to discharge today and go to the [facility]. He reported he will walk in at [facility] to try to get into [facility] tomorrow. Both Zbigniew and bid writer attempted to convince David to stay one more night for a successful transition to [facility]. He was adamant that he wants to leave. Informed RAFAL Castillo, that David wants to leave today. She requested bid writer inquire if David received Invega Sustenna in December from [facility]. Called David's case finishing machine adjuster, Ta (ph# [phone]), to inquire about Invega. He reported David did NOT receive Invega from [facility] in December. Informed Ta that David is discharging today and asked if he would be able to pick him up. Ta reported David will likely want to go see his mom and would not wait for him to leave. Called Zbigniew and informed him that David is discharging today. Apprised Anna David did not receive Invega in December. Discussed safety plan with David. He reported he plans to see his mom and then go to the [facility]. He reported he will walk in at [facility] tomorrow. Offered him a bus pass to get to the [facility] and he accepted it. SHELLI Gee
[2020-02-15] MEDS ORDERED: HALO5TAB PO (14:00)
[2020-02-15] MEDS ORDERED: NICO-687 TD (14:00)
[2020-02-15] MEDS ORDERED: ESCI20TA45 PO (14:00)
[2020-02-15] MEDS ORDERED: TRAZ-251 PO (14:00)
[2020-02-15] MEDS ORDERED: BENZ1TAB7 PO (14:00)
[2020-02-15] MEDS ORDERED: paliperidone palmitate inj 234 MG/1.5 ML SYRINGE IM ONE (14:25)
--- NOTE | 2020-02-15 15:03 | NUR ---
sales development director Note: Patient denies suicidal/homicidal ideation. Patient denies audio/visual hallucinations. Patient was accepted at the [facility] for tomorrow but didn't want to stay at [facility] overnight. RN gave patient d/c instructions and prescriptions. Patient verbalized understanding. Patient received and injection of 234 mg Paliperidone prior to d/c. Patient has all his belongings. Patient was calm and in no distress on discharge. Patient ambulatory, steady gait to lobby with duffle bag and tech Crystal at side. RN took pictures of wounds and patient left with Nicotine patch prescription.
--- NOTE | 2020-02-15 17:14 | NUR ---
D/C Presenting Issues: Pt opted to d/c even after being accepted to [facility]. Interventions: SS had t/c w/pt's STAR CATRACHITA, informed CM that pt will need invega 136 w/in next 5 days. Per t/c pt's CM will contact pt and schedule appointment for follow-up @ [facility]. Pt's mother will be picking him up and taking him to the [facility]. Plan: Pt d/c'd, referral closed. Avis Hernandez LCSW Addendum: 02/15/20 at 1716 by Avis YATES Amended: Links added.
== END 2020-02-15 15:01 | disposition home or self-care (01) | DRG 750 ==
LOC: ADULT MH 16:19
PROVIDERS: ADMIT Psychiatry & Neurology Psychiatry; ATTEND Psychiatry & Neurology Psychiatry
DX: F25.0 Schizoaffective disorder, bipolar type (principal); R45.851 Suicidal ideations; F11.10 Opioid abuse, uncomplicated; E11.9 Type 2 diabetes mellitus without complications; F17.210 Nicotine dependence, cigarettes, uncomplicated; I10 Essential (primary) hypertension; Z59.0 Homelessness; Z79.899 Other long term (current) drug therapy; F19.10 Other psychoactive substance abuse, uncomplicated
CPT/HCPCS: 36415; 80053; 80061; 83036; 87081; 93005

== ENCOUNTER 2020-04-22 13:46 | Emergency (ER) | payer MEDICAID ==
[~2020-04-22] VITALS: Ht 180.3 cm; Wt 115.9 kg
[~2020-04-22 13:46] MED LIST changes: -CLE150C PO; +ESCI20TA45 PO; -ESCI5TAB PO; -IBUP-1984 PO; -LACT1CAP26 PO; +TRAZ-251 PO; -TRAZ-256 PO
[2020-04-22 13:49] VITALS: BP 137/85
[2020-04-22] MEDS ORDERED: SULF1TAB49 PO (14:16)
[2020-04-22] MEDS ORDERED: CEPH-572 PO (14:16)
== END 2020-04-22 14:36 | disposition home or self-care (01) ==
LOC: ER 13:47
DX: L73.8 Other specified follicular disorders (principal); F32.9 Major depressive disorder, single episode, unspecified; F20.9 Schizophrenia, unspecified; F17.200 Nicotine dependence, unspecified, uncomplicated; F11.90 Opioid use, unspecified, uncomplicated; Z72.89 Other problems related to lifestyle; Z60.2 Problems related to living alone; Z56.0 Unemployment, unspecified; Z59.0 Homelessness; Z79.899 Other long term (current) drug therapy
CPT/HCPCS: 99283

== ENCOUNTER 2020-05-13 17:34 | Emergency (ER) | payer MEDICAID ==
[~2020-05-13] VITALS: Ht 180.3 cm; Wt 130.0 kg
[2020-05-13 18:29] VITALS: BP 111/72
== END 2020-05-13 18:31 | disposition home or self-care (01) ==
LOC: ER 17:36
DX: F15.10 Other stimulant abuse, uncomplicated (principal); F32.9 Major depressive disorder, single episode, unspecified; F20.9 Schizophrenia, unspecified; F11.90 Opioid use, unspecified, uncomplicated; Z72.89 Other problems related to lifestyle; Z60.2 Problems related to living alone; Z56.0 Unemployment, unspecified; Z59.0 Homelessness; Z79.899 Other long term (current) drug therapy
CPT/HCPCS: 99281

== ENCOUNTER 2020-05-22 12:10 | Emergency (ER) | payer MEDICAID ==
[~2020-05-22] VITALS: Ht 180.3 cm; Wt 129.6 kg
[2020-05-22 12:41] VITALS: BP 131/90
--- NOTE | 2020-05-22 13:15 | NUR ---
gave pt a jug of water
--- NOTE | 2020-05-22 13:36 | NUR ---
waiting on mental health to come and talk with pt.
--- NOTE | 2020-05-22 14:20 | NUR ---
SS talked with pt about how they suggest him to go back to the place at the [facility] but the pt already turned in his ho. they are trying to figure out what is happening.
--- NOTE | 2020-05-22 16:10 | NUR ---
told the pt's ride will be here in 30 min and will be taking him to [facility] and they will provide meals for him.
== END 2020-05-22 17:02 | disposition home or self-care (01) ==
LOC: ER 12:11
DX: F20.9 Schizophrenia, unspecified (principal); U07.1 COVID-19; F32.9 Major depressive disorder, single episode, unspecified; F15.10 Other stimulant abuse, uncomplicated; F14.10 Cocaine abuse, uncomplicated; Z59.0 Homelessness; Z56.0 Unemployment, unspecified; Z79.899 Other long term (current) drug therapy
CPT/HCPCS: 99282; 99283

== ENCOUNTER 2020-05-23 22:37 | Emergency (ER) | payer MEDICAID ==
[~2020-05-23] VITALS: Ht 182.9 cm; Wt 110.0 kg
--- NOTE | 2020-05-23 22:40 | NUR ---
per cn, and ed and nursing physical testing supervisor vebalized to wait to triage patient due to social service issue ed dr. leary on phone with dr. becker to see if patient needs to come in to isolation room and wait till a.m. for ss consult, patiwent is walking the parking lot with excess energy no observable s/s of acute respiratory distress noted at this time. security operations engineer eyes on patient in parking lot, covid tent currently full and cn and do not want patient in tent, due to manic state and that there is currently no room
--- NOTE | 2020-05-23 23:08 | NUR ---
ROOM 17 SET UP FOR PT - ALL SUPPLIES REMOVED FROM ROOM. BED PLACED IN ROOM AND PT GIVEN BLANKETS, CALL LIGHT, FOOD, WATER, URINAL ETC AND INSTRUCTED TO NOT LEAVE ROOM OR OPEN DOOR. PT TO USE CALL LIGHT FOR NEEDS. PT VERBALIZED UNDERSTANDING OF ISOLATION PRECAUTIONS.
--- NOTE | 2020-05-23 23:46 | NUR ---
patient in bed eyes closed rr even un labored no observable s/s of acute respiratory distress at this time will continue to monitor
--- NOTE | 2020-05-24 01:00 | NUR ---
PATIENT IN BED EYES CLOSED COVERS ON RR EVEBN UNLABORED NO OBSERVABLE S/S OF ACUTE RESPIRATORY DISTRESS AT THIS TIME WILL CONTINUE TO MONITOR
--- NOTE | 2020-05-24 02:56 | NUR ---
pt sleeping. no needs at this time.
--- NOTE | 2020-05-24 04:08 | NUR ---
patient in bed covers on lying on left side eyes closed rr even un labored no observable s/s of acute respiratory distress at this time will continue to monitor
--- NOTE | 2020-05-24 06:01 | NUR ---
PATIENT STILL IN BED EYES CLOSED COVERS ON LYING ON THE RIGHT SIDE RR EVEN UN LABORED NO OBSERVABLE S/S OF ACUTE STRESS AT THIS TIME WILL CONTINUE TO MONITOR
--- NOTE | 2020-05-24 08:30 | NUR ---
GENESIS FROM CALLED. SHE HAS A CALL OUT TO THE [facility] FOR POTENTIAL HOUSING REASSIGNMENT.
[2020-05-24] MEDS ORDERED: LORazepam 1 MG tablet PO ONE (09:45)
[2020-05-24 10:50] VITALS: BP 145/98
== END 2020-05-24 10:46 | disposition home or self-care (01) ==
LOC: ER 22:37
DX: U07.1 COVID-19 (principal); F32.9 Major depressive disorder, single episode, unspecified; F20.9 Schizophrenia, unspecified; F15.90 Other stimulant use, unspecified, uncomplicated; F11.90 Opioid use, unspecified, uncomplicated; F17.200 Nicotine dependence, unspecified, uncomplicated; Z59.0 Homelessness; Z72.89 Other problems related to lifestyle; Z60.2 Problems related to living alone; Z56.0 Unemployment, unspecified
CPT/HCPCS: 99283

== ENCOUNTER 2020-06-21 11:09 | Emergency (ER) | payer MEDICAID | END 2020-06-21 11:51 | disposition left against medical advice (07) | LOC: ER 11:09 | DX: L02.01 Cutaneous abscess of face (principal); Z53.21 Procedure and treatment not carried out due to patient leaving prior to being seen by health care provider ==

== ENCOUNTER 2020-06-25 21:15 | Emergency (ER) | payer MEDICAID ==
[~2020-06-25] VITALS: Ht 180.3 cm; Wt 130.0 kg
[2020-06-25] MEDS ORDERED: mupirocin 2% ointment 22GM TP STA (22:55)
[2020-06-25 23:09] VITALS: BP 126/73
== END 2020-06-25 23:05 | disposition home or self-care (01) ==
LOC: ER 21:15
DX: S00.80XA Unspecified superficial injury of other part of head, initial encounter (principal); F32.9 Major depressive disorder, single episode, unspecified; F20.9 Schizophrenia, unspecified; F15.10 Other stimulant abuse, uncomplicated; F11.10 Opioid abuse, uncomplicated; Z59.0 Homelessness; Z56.0 Unemployment, unspecified; Z79.899 Other long term (current) drug therapy; W18.39XA Other fall on same level, initial encounter; Y93.89 Activity, other specified; Y92.89 Other specified places as the place of occurrence of the external cause; Y99.8 Other external cause status
CPT/HCPCS: 99283

== ENCOUNTER 2020-07-05 06:35 | Emergency (ER) | payer MEDICAID ==
[~2020-07-05] VITALS: Ht 180.3 cm; Wt 110.6 kg
[2020-07-05 06:38] VITALS: BP 143/82
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
--- NOTE | 2020-07-05 07:25 | NUR ---
PT PROVIDED WITH SWEATSHIRT
== END 2020-07-05 07:49 | disposition home or self-care (01) ==
LOC: ER 06:36
DX: Z48.00 Encounter for change or removal of nonsurgical wound dressing (principal); F20.9 Schizophrenia, unspecified; F32.9 Major depressive disorder, single episode, unspecified; F15.90 Other stimulant use, unspecified, uncomplicated; F11.90 Opioid use, unspecified, uncomplicated; Z72.89 Other problems related to lifestyle; Z60.2 Problems related to living alone; Z59.0 Homelessness; Z56.0 Unemployment, unspecified; Z79.899 Other long term (current) drug therapy
CPT/HCPCS: 99281

== ENCOUNTER 2020-07-23 23:06 | Emergency (ER) | payer MEDICAID ==
[~2020-07-23] VITALS: Ht 180.3 cm; Wt 130.0 kg
--- NOTE | 2020-07-23 23:50 | NUR ---
Pt brought back to ER overflow. Pt compliant with assessment. He states he came in because he has been experiencing intense visual hallucinations of "big people in the tyron and dragons with teeth." "I went and baught a pocket knife and gloves and hat because I thought people were out to kill me and starve me." He reports relapsing on heroin yesterday. He has been feeling suicidal and has a plan to overdose.
[2020-07-24 00:06] LABS: BASOPHILS # (AUTO) 0.1 X10'3 (0-0.2); BASOPHILS % (AUTO) 0.8 % (0-1); EOSINOPHILS # (AUTO) 0.1 X10'3 (0-0.9); EOSINOPHILS % (AUTO) 1.2 % (0-6); HEMATOCRIT 40.3 % (42.0-52.0); HEMOGLOBIN 13.5 g/dl (14.0-17.9); LYMPHOCYTES # (AUTO) 2.2 X10'3 (1.1-4.8); LYMPHOCYTES % (AUTO) 18.3 % (21-51); MEAN CORPUSCULAR HEMOGLOBIN 26.6 PG (27.0-31.0); MEAN CORPUSCULAR HGB CONC 33.4 g/dL (33.0-36.5); MEAN CORPUSCULAR VOLUME 79.7 FL (78-98); MEAN PLATELET VOLUME 8.9 FL (7.4-10.4); NEUTROPHILS # (AUTO) 8.6 X10'3 (1.8-7.7); NEUTROPHILS % (AUTO) 71.7 % (42-75); PLATELET COUNT 266 X10'3 (140-440); RED BLOOD COUNT 5.06 X10'6 (4.70-6.10); RED CELL DISTRIBUTION WIDTH 14.5 % (11.5-14.5)
--- NOTE | 2020-07-24 00:20 | NUR ---
PT asleep on back, RR 16
[2020-07-24 00:29] LABS: ALANINE AMINOTRANSFERASE 34 U/L (12-78); ALBUMIN 3.7 G/DL (3.4-5.0); ALKALINE PHOSPHATASE 94 IU/L (46-116); ANION GAP 7 (8-16); ASPARTATE AMINO TRANSFERASE 23 U/L (10-37); BILIRUBIN,TOTAL 0.3 MG/DL (0.1-1.0); BLOOD UREA NITROGEN 13 MG/DL (7-18); BUN/CREATININE RATIO 13.1 (5.4-32.0); CALCIUM 8.9 MG/DL (8.5-10.1); CHLORIDE 106 MMOL/L (99-107); CREATININE 0.99 MG/DL (0.60-1.10); ETHANOL < 0.010 GM/DL (0.0-0.010); GLUCOSE 128 MG/DL (70-104); POTASSIUM 3.5 MMOL/L (3.5-5.1); SODIUM 142 MMOL/L (135-145); TOTAL PROTEIN 7.4 G/DL (6.4-8.2); eGFR > 90 ML/MIN
[2020-07-24 00:58] LABS: URINE AMPHETAMINE SCREEN NEGATIVE (Neg); URINE BARBITUATE SCREEN NEGATIVE (Neg); URINE BENZODIAZEPINES SCREEN NEGATIVE (Neg); URINE CANNABINOID SCREEN NEGATIVE (Neg); URINE COCAINE SCREEN NEGATIVE (Neg); URINE METHADONE SCREEN NEGATIVE (Neg); URINE OPIATE SCREEN POSITIVE (Neg); URINE PHENCYCLIDINE SCREEN NEGATIVE (Neg)
--- NOTE | 2020-07-24 02:10 | NUR ---
Pt resting quietly in bed RR 14
--- NOTE | 2020-07-24 04:21 | NUR ---
Pt asleep on back, respirations even and unlabored
--- NOTE | 2020-07-24 04:52 | NUR ---
[facility]
[2020-07-24] MEDS ORDERED: TRAZ-256 PO (05:31)
[2020-07-24] MEDS ORDERED: RISP3TAB63 PO (05:31)
[2020-07-24] MEDS ORDERED: RISP1TAB98 PO (05:31)
[2020-07-24] MEDS ORDERED: OLAN10TA3 PO (05:31)
[2020-07-24 05:39] VITALS: BP 133/60
--- NOTE | 2020-07-24 07:00 | NUR ---
Received pt sleeping in bed without signs of distress.
[2020-07-24] MEDS ORDERED: risperiDONE 0.5mg tablet PO SCH ×2 (08:00→21:00)
--- NOTE | 2020-07-24 09:00 | NUR ---
Scarlett miller in [facility] - 07/24/20 at 0943 by EFREM Pt awoke for meds and gb
--- NOTE | 2020-07-24 09:00 | NUR ---
Pt awoke for breakfast and was cooperative with am medications. Pt pleasant with RN, but was guarded slightly during assessment.
--- NOTE | 2020-07-24 11:00 | NUR ---
Pt resting quietly in bed without complaints. Pt cooperative with assessment and is agreeable to discharge to mom who is coming to pick him up around noon.
--- NOTE | 2020-07-24 11:15 | NUR ---
Yehuda from [facility] states to call mom to pick pt up once discharge paperwork ready.
--- NOTE | 2020-07-24 12:06 | NUR ---
Scarlett miller in [facility] - 07/24/20 at 1207 by MINERVA Pt's mom is here to pick him up.
--- NOTE | 2020-07-24 12:07 | NUR ---
Mom called and said she would be here in 5 minutes.
[2020-07-24] MEDS ORDERED: traZODone 50mg tablet PO SCH (21:00)
[2020-07-24] MEDS ORDERED: risperiDONE 2mg tablet PO SCH (21:00)
[2020-07-24] MEDS ORDERED: olanzapine 10mg tablet PO SCH (21:00)
[2020-08-01] MEDS ORDERED: paliperidone palmitate inj 234 MG/1.5 ML SYRINGE IM SCH (08:00)
== END 2020-07-24 13:13 | disposition home or self-care (01) ==
LOC: ER 23:07
DX: F29 Unspecified psychosis not due to a substance or known physiological condition (principal); R45.851 Suicidal ideations; R45.850 Homicidal ideations; F41.9 Anxiety disorder, unspecified; F32.9 Major depressive disorder, single episode, unspecified; F20.9 Schizophrenia, unspecified; F17.200 Nicotine dependence, unspecified, uncomplicated; F15.90 Other stimulant use, unspecified, uncomplicated; F11.90 Opioid use, unspecified, uncomplicated; Z72.89 Other problems related to lifestyle; Z60.2 Problems related to living alone; Z59.0 Homelessness; Z56.0 Unemployment, unspecified; Z79.899 Other long term (current) drug therapy
CPT/HCPCS: 36415; 80053; 80305; 80320; 85025; 99285

== ENCOUNTER 2020-07-29 01:54 | Emergency (ER) | payer MEDICAID ==
[~2020-07-29] VITALS: Ht 180.3 cm; Wt 130.0 kg
[~2020-07-29 01:54] MED LIST changes: -BENZ1TAB7 PO; -ESCI20TA45 PO; -HALO5TAB PO; -NICO-687 TD; +OLAN10TA3 PO; +RISP1TAB98 PO; +RISP3TAB63 PO; -TRAZ-251 PO; +TRAZ-256 PO
[2020-07-29 02:06] VITALS: BP 140/81
--- NOTE | 2020-07-29 02:15 | NUR ---
AT THE END OF THE TRIAGE PT STATED HE DOESN'T REALLY FEEL HOMISIDAL. HE ASKED IF HE COULD JUST HAVE WARM BLANKET. HE GOT A PHYSCH MED SHOT YESTERDAY. HE WANTED TO LEAVE. I ASKED HIM TO BE ASSESSED BY OUR MEDICAL DOCTOR FIRST. DR WALLER AWARE
== END 2020-07-29 02:26 | disposition home or self-care (01) ==
LOC: ER 01:55
DX: Z00.8 Encounter for other general examination (principal); R45.850 Homicidal ideations; F41.9 Anxiety disorder, unspecified; F32.9 Major depressive disorder, single episode, unspecified; F20.9 Schizophrenia, unspecified; F15.90 Other stimulant use, unspecified, uncomplicated; Z72.89 Other problems related to lifestyle; Z56.0 Unemployment, unspecified; Z59.0 Homelessness; Z79.899 Other long term (current) drug therapy
CPT/HCPCS: 99281

== ENCOUNTER 2020-07-30 16:19 | Emergency (ER) | payer MEDICAID ==
[~2020-07-30] VITALS: Ht 180.3 cm; Wt 130.0 kg
[2020-07-30 18:33] LABS: BASOPHILS % (AUTO) 0.4 % (0-1); EOSINOPHILS # (AUTO) 0.1 X10'3 (0-0.9); EOSINOPHILS % (AUTO) 1.1 % (0-6); HEMATOCRIT 41.2 % (42.0-52.0); HEMOGLOBIN 13.7 g/dl (14.0-17.9); LYMPHOCYTES # (AUTO) 1.9 X10'3 (1.1-4.8); LYMPHOCYTES % (AUTO) 18.7 % (21-51); MEAN CORPUSCULAR HEMOGLOBIN 26.2 PG (27.0-31.0); MEAN CORPUSCULAR HGB CONC 33.2 g/dL (33.0-36.5); MEAN CORPUSCULAR VOLUME 78.9 FL (78-98); MEAN PLATELET VOLUME 8.6 FL (7.4-10.4); MONOCYTES # (AUTO) 1.1 X10'3 (0-0.9); MONOCYTES % (AUTO) 11.5 % (2-12); NEUTROPHILS # (AUTO) 6.8 X10'3 (1.8-7.7); NEUTROPHILS % (AUTO) 68.3 % (42-75); PLATELET COUNT 297 X10'3 (140-440); RED BLOOD COUNT 5.22 X10'6 (4.70-6.10); RED CELL DISTRIBUTION WIDTH 14.4 % (11.5-14.5); WHITE BLOOD COUNT 9.9 X10'3 (4.5-11.0)
[2020-07-30 18:41] LABS: ALANINE AMINOTRANSFERASE 32 U/L (12-78); ALKALINE PHOSPHATASE 90 IU/L (46-116); ANION GAP 9 (8-16); ASPARTATE AMINO TRANSFERASE 25 U/L (10-37); BILIRUBIN,TOTAL 0.5 MG/DL (0.1-1.0); BLOOD UREA NITROGEN 12 MG/DL (7-18); BUN/CREATININE RATIO 14.3 (5.4-32.0); CALCIUM 8.8 MG/DL (8.5-10.1); CHLORIDE 103 MMOL/L (99-107); CREATININE 0.84 MG/DL (0.60-1.10); GLUCOSE 96 MG/DL (70-104); POTASSIUM 3.4 MMOL/L (3.5-5.1); SODIUM 142 MMOL/L (135-145); eGFR > 90 ML/MIN
[2020-07-30 18:54] LABS: ETHANOL < 0.010 GM/DL (0.0-0.010)
[2020-07-30 19:46] LABS: CLARITY,URINE CLEAR (Clear); COLOR,URINE AMBER (Yellow); GLUCOSE, URINE NEGATIVE (Neg); KETONES,URINE 40 mg/dl (Neg); LEUKOCYTE ESTERASE ,URINE NEGATIVE (Neg); NITRITES, URINE NEGATIVE (Neg); OCCULT BLOOD,URINE NEGATIVE (Neg); PH,URINE 5.5 (4.8-8.0); PROTEIN,URINE TRACE mg/dl (Neg)
[2020-07-30 19:48] LABS: UA COLLECTION TYPE VOIDED
[2020-07-30 19:57] LABS: URINE AMPHETAMINE SCREEN POSITIVE (Neg); URINE BARBITUATE SCREEN NEGATIVE (Neg); URINE BENZODIAZEPINES SCREEN NEGATIVE (Neg); URINE CANNABINOID SCREEN NEGATIVE (Neg); URINE COCAINE SCREEN NEGATIVE (Neg); URINE METHADONE SCREEN NEGATIVE (Neg); URINE OPIATE SCREEN POSITIVE (Neg); URINE PHENCYCLIDINE SCREEN NEGATIVE (Neg)
[2020-07-30 20:04] LABS: BACTERIA,URINE NONE SEEN /HPF (Neg); MUCUS STRANDS MANY /LPF (Neg); RBC,URINE NONE SEEN /HPF (0-2); SQUAMOUS EPITHELIAL CELL,UR FEW /LPF (FEW); WBC,URINE 0-4 /HPF (0-4)
--- NOTE | 2020-07-30 20:23 | NUR ---
Pt brought over to ER overflow, pt changed into greens, belongings inventoried.
[2020-07-30] MEDS ORDERED: paliperidone palmitate inj 234 MG/1.5 ML SYRINGE IM SCH (20:35)
[2020-07-30] MEDS ORDERED: olanzapine 10mg tablet PO SCH (21:00)
[2020-07-30] MEDS ORDERED: traZODone 50mg tablet PO SCH (21:00)
[2020-07-30] MEDS ORDERED: risperiDONE 0.5mg tablet PO SCH (21:00)
--- NOTE | 2020-07-30 21:17 | NUR ---
Pt is medication compliant
--- NOTE | 2020-07-30 22:39 | NUR ---
Packet faxed to [facility]
--- NOTE | 2020-07-31 02:14 | NUR ---
Pt sleeping on back RR 18
--- NOTE | 2020-07-31 05:34 | NUR ---
Pt cooperative with vital signs, falls back asleep
[2020-07-31] MEDS ORDERED: potassium Cl 20 mEq SR tablet PO STA (05:59)
--- NOTE | 2020-07-31 06:31 | NUR ---
This RN assumed care of pt. Pt. is asleep, supine in bed. Normal rate and rhythm of respirations noted. Pt. in no apparent distress.
[2020-07-31] MEDS ORDERED: risperiDONE 0.5mg tablet PO SCH (08:00)
--- NOTE | 2020-07-31 08:26 | NUR ---
Pt. asleep of right side. Normal R&R of respirations noted. Pt. not in any apparent distress.
--- NOTE | 2020-07-31 10:30 | NUR ---
Pt. asleep on right side. Pt. refused breakfast. Normal R&R rhythm of respiration noted. Pt. in no apparent distress.
--- NOTE | 2020-07-31 11:00 | NUR ---
1:1 done at bedside, pt. denies SI/HI, VH. However, pt. reports hearing voices in the background. Pt. reports he feels ready to discharge and his plan is to go to [facility] to get [facility]. Pt. is homeless but reports he will meet up with his mother today who is a support system for him.
--- NOTE | 2020-07-31 11:45 | NUR ---
Pt. discharged to [facility]. Pt. reports he is meeting up with his mother today who will take him over to [facility]. Pt. is alert and oriented x4. Pt. denies SI/HI, and VH. Pt. reports voices in the background which he cannot make out. Pt. is calm and cooperative and in no apparent distress. Pt. understand d/c plan as well as home medication regimen. Pt. discharged with all belongings.
[2020-07-31 11:58] VITALS: BP 118/62
== END 2020-07-31 11:45 | disposition home or self-care (01) ==
LOC: ER 16:21
DX: S00.81XA Abrasion of other part of head, initial encounter (principal); R45.851 Suicidal ideations; F11.10 Opioid abuse, uncomplicated; F15.10 Other stimulant abuse, uncomplicated; R44.0 Auditory hallucinations; R44.1 Visual hallucinations; F32.9 Major depressive disorder, single episode, unspecified; F41.9 Anxiety disorder, unspecified; Z56.0 Unemployment, unspecified; Z59.0 Homelessness; Z72.89 Other problems related to lifestyle; Z79.899 Other long term (current) drug therapy; Z88.8 Allergy status to other drugs, medicaments and biological substances; X58.XXXA Exposure to other specified factors, initial encounter; Y93.89 Activity, other specified; Y92.89 Other specified places as the place of occurrence of the external cause; Y99.8 Other external cause status
CPT/HCPCS: 36415; 80053; 80305; 80320; 81001; 84443; 85025; 99285

== ENCOUNTER 2020-08-14 13:33 | Emergency (ER) | payer MEDICAID ==
[~2020-08-14] VITALS: Ht 180.3 cm; Wt 109.0 kg
[2020-08-14 13:40] VITALS: BP 118/79
[2020-08-14] MEDS ORDERED: MUPI22OI30 TOP (14:37)
[2020-08-14] MEDS ORDERED: TRAZ-256 PO (20:50)
[2020-08-14] MEDS ORDERED: CEPH250T PO (20:50)
[2020-08-14] MEDS ORDERED: OLAN10TA3 PO (20:50)
[2020-08-14] MEDS ORDERED: RISP1TAB98 PO (20:50)
[2020-08-14] MEDS ORDERED: RISP3TAB63 PO (20:50)
== END 2020-08-14 15:04 | disposition home or self-care (01) ==
LOC: ER 13:33
DX: L98.8 Other specified disorders of the skin and subcutaneous tissue (principal); F15.90 Other stimulant use, unspecified, uncomplicated; F17.200 Nicotine dependence, unspecified, uncomplicated; F11.90 Opioid use, unspecified, uncomplicated; Z59.0 Homelessness; Z79.2 Long term (current) use of antibiotics; Z79.899 Other long term (current) drug therapy; Z56.0 Unemployment, unspecified
CPT/HCPCS: 99283

== ENCOUNTER 2020-08-14 18:24 | Emergency (ER) | payer MEDICAID ==
[~2020-08-14] VITALS: Ht 180.3 cm; Wt 108.6 kg
[~2020-08-14 18:24] MED LIST changes: +MUPI22OI30 TOP
[2020-08-14 18:42] VITALS: BP 108/78
--- NOTE | 2020-08-14 20:48 | NUR ---
MD Feldman just saw patient. He will order antibiotic and his other meds, [facility]. If not he may have to stay the night.
[2020-08-14] MEDS ORDERED: traZODone 50mg tablet PO SCH (20:50)
[2020-08-14] MEDS ORDERED: CEPH250T PO (20:50)
[2020-08-14] MEDS ORDERED: traZODone 50mg tablet PO ONE (20:50)
[2020-08-14] MEDS ORDERED: TRAZ-256 PO (20:50)
[2020-08-14] MEDS ORDERED: RISP1TAB98 PO (20:50)
[2020-08-14] MEDS ORDERED: RISP3TAB63 PO (20:50)
[2020-08-14] MEDS ORDERED: OLAN10TA3 PO (20:50)
[2020-08-14] MEDS ORDERED: cephalexin 500mg capsule PO ONE (20:50)
--- NOTE | 2020-08-14 20:52 | NUR ---
[facility] that [facility] not [facility]. Awaiting new orders.
[2020-08-15] MEDS ORDERED: olanzapine 10mg tablet PO SCH (08:00)
== END 2020-08-14 21:20 | disposition home or self-care (01) ==
LOC: ER 18:25
DX: F19.10 Other psychoactive substance abuse, uncomplicated (principal); L03.211 Cellulitis of face; F20.9 Schizophrenia, unspecified; F41.9 Anxiety disorder, unspecified; F32.9 Major depressive disorder, single episode, unspecified; F15.90 Other stimulant use, unspecified, uncomplicated; F11.90 Opioid use, unspecified, uncomplicated; Z91.19 Patient's noncompliance with other medical treatment and regimen; Z72.89 Other problems related to lifestyle; Z60.2 Problems related to living alone; Z59.0 Homelessness; Z56.0 Unemployment, unspecified; Z79.2 Long term (current) use of antibiotics; Z79.899 Other long term (current) drug therapy
CPT/HCPCS: 99283

== ENCOUNTER 2020-08-27 12:17 | Emergency (ER) | payer MEDICAID ==
[~2020-08-27] VITALS: Ht 180.3 cm; Wt 106.0 kg
[~2020-08-27 12:17] MED LIST changes: -MUPI22OI30 TOP
[2020-08-27 12:30] VITALS: BP 161/80
[2020-08-27] MEDS ORDERED: mupirocin 2% ointment 22GM TP STA (14:05)
== END 2020-08-27 14:25 | disposition home or self-care (01) ==
LOC: ER 12:18
DX: S01.502A Unspecified open wound of oral cavity, initial encounter (principal); F15.90 Other stimulant use, unspecified, uncomplicated; F12.90 Cannabis use, unspecified, uncomplicated; Z56.0 Unemployment, unspecified; Z59.0 Homelessness; Z72.89 Other problems related to lifestyle; Z79.899 Other long term (current) drug therapy; L08.9 Local infection of the skin and subcutaneous tissue, unspecified; X58.XXXA Exposure to other specified factors, initial encounter; Y93.89 Activity, other specified; Y92.89 Other specified places as the place of occurrence of the external cause; Y99.8 Other external cause status
CPT/HCPCS: 99283

== ENCOUNTER 2020-08-30 21:34 | Emergency (ER) | payer MEDICAID ==
[~2020-08-30] VITALS: Ht 180.3 cm; Wt 116.4 kg
[2020-08-30 21:38] VITALS: BP 136/80
== END 2020-08-30 23:50 | disposition home or self-care (01) ==
LOC: ER 21:35
DX: S01.80XA Unspecified open wound of other part of head, initial encounter (principal); R07.81 Pleurodynia; F41.9 Anxiety disorder, unspecified; F20.9 Schizophrenia, unspecified; F32.9 Major depressive disorder, single episode, unspecified; F15.90 Other stimulant use, unspecified, uncomplicated; F11.90 Opioid use, unspecified, uncomplicated; Z59.0 Homelessness; Z56.0 Unemployment, unspecified; Z72.89 Other problems related to lifestyle; Z79.899 Other long term (current) drug therapy; X58.XXXA Exposure to other specified factors, initial encounter; Y93.89 Activity, other specified; Y92.89 Other specified places as the place of occurrence of the external cause; Y99.8 Other external cause status
CPT/HCPCS: 71045; 99283

== ENCOUNTER 2020-09-09 09:11 | Emergency (ER) | payer MEDICAID ==
[~2020-09-09] VITALS: Ht 180.3 cm; Wt 130.0 kg
[2020-09-09 09:17] VITALS: BP 139/82
== END 2020-09-09 10:46 | disposition left against medical advice (07) ==
LOC: ER 09:12
DX: Z48.00 Encounter for change or removal of nonsurgical wound dressing (principal); Z53.21 Procedure and treatment not carried out due to patient leaving prior to being seen by health care provider

== ENCOUNTER 2020-09-25 10:19 | Emergency (ER) | payer MEDICAID ==
[~2020-09-25] VITALS: Ht 180.3 cm; Wt 98.4 kg
[~2020-09-25 10:19] MED LIST changes: +MUPI22OI30 TOP; +SULF1TAB49 PO
[2020-09-25 10:50] VITALS: BP 118/42
[2020-09-25] MEDS ORDERED: sulfamethoxazole/trimethoprim DS (800/160mg) tablet PO ONE (11:25)
--- NOTE | 2020-09-25 11:28 | NUR ---
REPORT TO PRIMARY RN FLOWER
[2020-09-25] MEDS ORDERED: SULF1TAB45 PO (11:30)
[2020-09-25] MEDS ORDERED: mupirocin 2% ointment 22GM TP STA (11:38)
== END 2020-09-25 12:20 | disposition home or self-care (01) ==
LOC: ER 10:20
DX: S01.80XA Unspecified open wound of other part of head, initial encounter (principal); F41.9 Anxiety disorder, unspecified; F32.9 Major depressive disorder, single episode, unspecified; F20.9 Schizophrenia, unspecified; F15.90 Other stimulant use, unspecified, uncomplicated; F11.90 Opioid use, unspecified, uncomplicated; Z72.89 Other problems related to lifestyle; Z59.0 Homelessness; Z56.0 Unemployment, unspecified; Z79.2 Long term (current) use of antibiotics; Z79.899 Other long term (current) drug therapy; X58.XXXA Exposure to other specified factors, initial encounter; Y93.89 Activity, other specified; Y92.89 Other specified places as the place of occurrence of the external cause; Y99.8 Other external cause status
CPT/HCPCS: 99283

== ENCOUNTER 2020-10-05 14:53 | Emergency (ER) | payer MEDICAID ==
[~2020-10-05] VITALS: Ht 180.3 cm; Wt 75.0 kg
[~2020-10-05 14:53] MED LIST changes: -MUPI22OI30 TOP; -SULF1TAB49 PO
[2020-10-05 14:56] VITALS: BP 142/66
== END 2020-10-05 17:01 | disposition left against medical advice (07) ==
LOC: ER 14:54
DX: R06.02 Shortness of breath (principal); R11.0 Nausea; Z53.21 Procedure and treatment not carried out due to patient leaving prior to being seen by health care provider

== ENCOUNTER 2020-10-15 19:57 | Emergency (ER) | payer MEDICAID | END 2020-10-15 20:46 | disposition left against medical advice (07) | LOC: ER 19:58 | DX: E86.0 Dehydration (principal); Z53.21 Procedure and treatment not carried out due to patient leaving prior to being seen by health care provider ==

== ENCOUNTER 2020-10-18 18:54 | Emergency (ER) | payer MEDICAID ==
[~2020-10-18] VITALS: Ht 180.3 cm; Wt 111.4 kg
[2020-10-18 19:03] VITALS: BP 125/78
--- NOTE | 2020-10-18 19:43 | NUR ---
ROUNDING ON PT, PT SLEEPING COMFORTABLY IN BED. NO SIGNS OF DISTRESS.
--- NOTE | 2020-10-18 20:15 | NUR ---
PT GIVEN WATER, ORANGE JUICE, APPLESAUCE, AND TURKEY SANDWICH
--- NOTE | 2020-10-18 20:20 | NUR ---
PT USED PHONE TO CALL HIMSELF IN TO [facility]. WALKED OUT OF ER WITHOUT DISCHARGE. MD AND RUN LEAD MADE AWARE
== END 2020-10-18 20:25 | disposition left against medical advice (07) ==
LOC: ER 18:54
DX: F19.10 Other psychoactive substance abuse, uncomplicated (principal); F99 Mental disorder, not otherwise specified; E86.0 Dehydration; R51.9 Headache, unspecified; F32.9 Major depressive disorder, single episode, unspecified; F20.9 Schizophrenia, unspecified; F15.90 Other stimulant use, unspecified, uncomplicated; F11.90 Opioid use, unspecified, uncomplicated; Z72.89 Other problems related to lifestyle; Z56.0 Unemployment, unspecified; Z59.0 Homelessness; Z79.899 Other long term (current) drug therapy
CPT/HCPCS: 99281

== ENCOUNTER 2020-10-23 20:34 | Emergency (ER) | payer MEDICAID ==
[~2020-10-23] VITALS: Ht 182.9 cm; Wt 116.4 kg
--- NOTE | 2020-10-23 22:16 | NUR ---
The patient moved to bed 25 in the ER overflow. He was cooperative with the move and staff requests. He stated that he currently is not hearing voices but stated he is seeing demons. He stated he felt suicidal to walk into traffic. He stated that he has been off his psychiatric medications for "weeks" He admits to meth use yesterday. Labs were drawn. Covid and urine sample sent to lab. The patient is currently on a 1793
--- NOTE | 2020-10-23 22:26 | NUR ---
The patient is talking to himself
[2020-10-23] MEDS ORDERED: olanzapine 10mg tablet PO ONE (22:30)
[2020-10-23 22:35] LABS: BASOPHILS % (AUTO) 0.5 % (0-1); EOSINOPHILS # (AUTO) 0.2 X10'3 (0-0.9); EOSINOPHILS % (AUTO) 2.1 % (0-6); HEMATOCRIT 37.2 % (42.0-52.0); HEMOGLOBIN 12.3 g/dl (14.0-17.9); LYMPHOCYTES # (AUTO) 2.1 X10'3 (1.1-4.8); MEAN CORPUSCULAR HGB CONC 33.2 g/dL (33.0-36.5); MEAN CORPUSCULAR VOLUME 78.2 FL (78-98); MEAN PLATELET VOLUME 8.9 FL (7.4-10.4); MONOCYTES # (AUTO) 0.9 X10'3 (0-0.9); NEUTROPHILS # (AUTO) 5.3 X10'3 (1.8-7.7); NEUTROPHILS % (AUTO) 62.4 % (42-75); PLATELET COUNT 263 X10'3 (140-440); RED BLOOD COUNT 4.75 X10'6 (4.70-6.10); RED CELL DISTRIBUTION WIDTH 14.3 % (11.5-14.5); WHITE BLOOD COUNT 8.6 X10'3 (4.5-11.0)
[2020-10-23 22:36] LABS: ALANINE AMINOTRANSFERASE 24 U/L (12-78); ALBUMIN 3.3 G/DL (3.4-5.0); ALKALINE PHOSPHATASE 75 IU/L (46-116); ANION GAP 5 (8-16); ASPARTATE AMINO TRANSFERASE 17 U/L (10-37); BILIRUBIN,TOTAL 0.2 MG/DL (0.1-1.0); BLOOD UREA NITROGEN 8 MG/DL (7-18); CALCIUM 8.2 MG/DL (8.5-10.1); CHLORIDE 109 MMOL/L (99-107); CREATININE 0.73 MG/DL (0.60-1.10); ETHANOL < 0.010 GM/DL (0.0-0.010); GLUCOSE 102 MG/DL (70-104); POTASSIUM 3.2 MMOL/L (3.5-5.1); SODIUM 145 MMOL/L (135-145); TOTAL PROTEIN 6.5 G/DL (6.4-8.2); eGFR > 90 ML/MIN
[2020-10-23 22:36] LABS: URINE AMPHETAMINE SCREEN POSITIVE (Neg); URINE BARBITUATE SCREEN NEGATIVE (Neg); URINE BENZODIAZEPINES SCREEN NEGATIVE (Neg); URINE CANNABINOID SCREEN NEGATIVE (Neg); URINE COCAINE SCREEN NEGATIVE (Neg); URINE METHADONE SCREEN NEGATIVE (Neg); URINE OPIATE SCREEN NEGATIVE (Neg); URINE PHENCYCLIDINE SCREEN NEGATIVE (Neg)
[2020-10-23] MEDS ORDERED: potassium Cl 20 mEq SR tablet PO ONE (22:40)
[2020-10-23 22:52] LABS: CLARITY,URINE CLEAR (Clear); COLOR,URINE YELLOW (Yellow); GLUCOSE, URINE NEGATIVE (Neg); KETONES,URINE NEGATIVE (Neg); LEUKOCYTE ESTERASE ,URINE NEGATIVE (Neg); NITRITES, URINE NEGATIVE (Neg); OCCULT BLOOD,URINE NEGATIVE (Neg); PROTEIN,URINE NEGATIVE (Neg)
[2020-10-23 22:53] LABS: UA COLLECTION TYPE VOIDED
--- NOTE | 2020-10-23 23:07 | NUR ---
The patient appears to be sleeping
--- NOTE | 2020-10-24 00:33 | NUR ---
The patient appears to be sleeping
--- NOTE | 2020-10-24 00:38 | NUR ---
Packet sent to [facility]
--- NOTE | 2020-10-24 01:47 | NUR ---
THe patient appears to be sleeping
--- NOTE | 2020-10-24 03:15 | NUR ---
The patient appears to be sleeping
--- NOTE | 2020-10-24 04:52 | NUR ---
The patient has appeared to have slept well throughout the night after receiving zyprexa 10mg at HS.
--- NOTE | 2020-10-24 07:00 | NUR ---
Received pt asleep in bed in no apparent distress.
--- NOTE | 2020-10-24 09:00 | NUR ---
Pt continues to sleep without distress. Pt did not wake up for breakfast and is only slightly arrousable and then falls back to sleep mid sentence.
[2020-10-24] MEDS ORDERED: ESCI-10 PO (09:29)
--- NOTE | 2020-10-24 09:38 | NUR ---
Spoke with Kelli from [facility] and cleared up the medications. Pt last received invega gloria on 09/25 and was due yesterday. Pt came by clinic yesterday am, but got tired of waiting and left. Pt is still followed by [facility]. and his po meds are at [facility]. He last picked them up from [facility] on 10/19/20: zyprexa 10mg hs, lexapro 10mg QD, Trazodone 50-100mg po HS PRN insomnia.
[2020-10-24] MEDS ORDERED: paliperidone palmitate inj 234 MG/1.5 ML SYRINGE IM SCH (10:00)
--- NOTE | 2020-10-24 11:00 | NUR ---
[facility] width stripper attempted evaluation, but pt remains too sedated. Bridge Contractor stated he will come back after lunch. Pt continues to sleep without complaints or signs of distress.
--- NOTE | 2020-10-24 13:00 | NUR ---
Pt continues to sleep peacefully without complaints or signs of distress. Pt arrousable, but immediately returns to sleep.
--- NOTE | 2020-10-24 15:00 | NUR ---
Pt sleeping in bed in no apparent distress.
--- NOTE | 2020-10-24 17:00 | NUR ---
Pt compliant and cooperative with Invega Sustenna shot (234mg) which was given. Pt continues sleeping. Pt accepted at [facility]. Tarp Repairer will worm picker pt at 1900.
[2020-10-24 19:27] VITALS: BP 111/54
[2020-10-24] MEDS ORDERED: olanzapine 10mg tablet PO SCH (21:00)
[2020-10-25] MEDS ORDERED: ESCITALOPRAM OXALATE 5 MG TABLET PO SCH (08:00)
== END 2020-10-24 19:30 ==
LOC: ER 20:34
DX: F20.9 Schizophrenia, unspecified (principal); Z20.822 Contact with and (suspected) exposure to COVID-19; R45.851 Suicidal ideations; F15.90 Other stimulant use, unspecified, uncomplicated; F11.90 Opioid use, unspecified, uncomplicated; Z79.899 Other long term (current) drug therapy; Z72.89 Other problems related to lifestyle; Z56.0 Unemployment, unspecified; Z59.0 Homelessness
CPT/HCPCS: 36415; 80053; 80305; 80320; 81003; 85025; 87635; 96372; 99285; C9803

== ENCOUNTER 2020-11-05 22:39 | Emergency (ER) | payer MEDICAID ==
[~2020-11-05] VITALS: Ht 180.3 cm; Wt 111.0 kg
[~2020-11-05 22:39] MED LIST changes: +ESCI-10 PO
[2020-11-05 22:48] VITALS: BP 118/74
== END 2020-11-06 04:15 | disposition left against medical advice (07) ==
LOC: ER 22:39
DX: B99.8 Other infectious disease (principal); Z53.21 Procedure and treatment not carried out due to patient leaving prior to being seen by health care provider

== ENCOUNTER 2020-11-08 14:54 | Emergency (ER) | payer MEDICAID ==
[~2020-11-08] VITALS: Ht 182.9 cm; Wt 111.0 kg
--- NOTE | 2020-11-08 15:43 | NUR ---
Patient brought back to bed 20. Patient changed into green scrubs, then back to bed.
[2020-11-08] MEDS ORDERED: TRAZ-256 PO (16:03)
[2020-11-08] MEDS ORDERED: OLAN10TA3 PO (16:03)
[2020-11-08] MEDS ORDERED: ESCI10TA PO (16:03)
--- NOTE | 2020-11-08 16:33 | NUR ---
Attempted to have 1:1 with patient. Patient is not answering questions at this time. Pt. sleeping on his right side. Respirations are even and unlabored.
--- NOTE | 2020-11-08 16:47 | NUR ---
Raevn here to evaluate patient. Patient reports that he was running in and out of traffic before he came in. Admits to A/V/H. Pt. reports that he took Trazodone prior to coming in and is ready to sleep. Will continue to monitor.
[2020-11-08] MEDS ORDERED: cephalexin 250mg capsule PO ONE (16:50)
[2020-11-08 17:10] LABS: BASOPHILS % (AUTO) 0.5 % (0-1); EOSINOPHILS # (AUTO) 0.2 X10'3 (0-0.9); EOSINOPHILS % (AUTO) 1.9 % (0-6); HEMATOCRIT 40.6 % (42.0-52.0); HEMOGLOBIN 13.5 g/dl (14.0-17.9); LYMPHOCYTES # (AUTO) 1.4 X10'3 (1.1-4.8); LYMPHOCYTES % (AUTO) 17.5 % (21-51); MEAN CORPUSCULAR HEMOGLOBIN 26.4 PG (27.0-31.0); MEAN CORPUSCULAR HGB CONC 33.2 g/dL (33.0-36.5); MEAN CORPUSCULAR VOLUME 79.7 FL (78-98); MEAN PLATELET VOLUME 8.8 FL (7.4-10.4); MONOCYTES # (AUTO) 0.8 X10'3 (0-0.9); MONOCYTES % (AUTO) 9.6 % (2-12); NEUTROPHILS # (AUTO) 5.7 X10'3 (1.8-7.7); NEUTROPHILS % (AUTO) 70.5 % (42-75); PLATELET COUNT 267 X10'3 (140-440); RED CELL DISTRIBUTION WIDTH 14.1 % (11.5-14.5); WHITE BLOOD COUNT 8.1 X10'3 (4.5-11.0)
[2020-11-08 17:37] LABS: ALANINE AMINOTRANSFERASE 23 U/L (12-78); ALBUMIN 3.3 G/DL (3.4-5.0); ALKALINE PHOSPHATASE 79 IU/L (46-116); ANION GAP 8 (8-16); ASPARTATE AMINO TRANSFERASE 24 U/L (10-37); BILIRUBIN,TOTAL 0.3 MG/DL (0.1-1.0); BLOOD UREA NITROGEN 6 MG/DL (7-18); CALCIUM 8.6 MG/DL (8.5-10.1); CHLORIDE 106 MMOL/L (99-107); CREATININE 0.67 MG/DL (0.60-1.10); GLUCOSE 101 MG/DL (70-104); POTASSIUM 3.2 MMOL/L (3.5-5.1); SODIUM 143 MMOL/L (135-145); TOTAL CARBON DIOXIDE 28.8 MMOL/L (24-32); TOTAL PROTEIN 6.7 G/DL (6.4-8.2); eGFR > 90 ML/MIN
--- NOTE | 2020-11-08 17:40 | NUR ---
Katie (Patients Mom)
[2020-11-08 17:59] LABS: URINE AMPHETAMINE SCREEN POSITIVE (Neg); URINE BARBITUATE SCREEN NEGATIVE (Neg); URINE BENZODIAZEPINES SCREEN NEGATIVE (Neg); URINE CANNABINOID SCREEN NEGATIVE (Neg); URINE COCAINE SCREEN NEGATIVE (Neg); URINE METHADONE SCREEN NEGATIVE (Neg); URINE OPIATE SCREEN NEGATIVE (Neg); URINE PHENCYCLIDINE SCREEN NEGATIVE (Neg)
[2020-11-08 18:00] LABS: CLARITY,URINE CLEAR (Clear); COLOR,URINE YELLOW (Yellow); GLUCOSE, URINE NEGATIVE (Neg); KETONES,URINE TRACE mg/dl (Neg); LEUKOCYTE ESTERASE ,URINE NEGATIVE (Neg); NITRITES, URINE NEGATIVE (Neg); OCCULT BLOOD,URINE NEGATIVE (Neg); PROTEIN,URINE NEGATIVE (Neg); UROBILINOGEN,URINE 0.2 E.U/dL (0.2-1.0)
[2020-11-08] MEDS ORDERED: potassium Cl 20 mEq SR tablet PO ONE (18:00)
[2020-11-08 18:26] LABS: UA COLLECTION TYPE CLN CATCH MIDSTREAM
--- NOTE | 2020-11-08 18:32 | NUR ---
FAXED PACKET [facility]
--- NOTE | 2020-11-08 19:00 | NUR ---
Received pt asleep in bed without signs of distress.
[2020-11-08] MEDS ORDERED: traZODone 50mg tablet PO SCH (21:00)
[2020-11-08] MEDS ORDERED: olanzapine 10mg tablet PO SCH (21:00)
--- NOTE | 2020-11-08 21:00 | NUR ---
Pt did not wake up for dinner and continues to sleep peacefully, without signs of distress.
--- NOTE | 2020-11-08 23:00 | NUR ---
Pt remains sleeping without signs of distress. Pt awoken and given HS meds at 2230. Pt barely opened his eyes, swallowed his meds and fell back to sleep.
--- NOTE | 2020-11-09 01:00 | NUR ---
Pt remains asleep without signs of distress.
--- NOTE | 2020-11-09 03:00 | NUR ---
Pt remains asleep without signs of distress.
--- NOTE | 2020-11-09 05:00 | NUR ---
Pt remains asleep without signs of distress.
--- NOTE | 2020-11-09 07:01 | NUR ---
pt is asleep, regular breathing present, no needs at this time
[2020-11-09] MEDS ORDERED: ESCITALOPRAM OXALATE 5 MG TABLET PO SCH (08:00)
--- NOTE | 2020-11-09 08:00 | NUR ---
pt is asleep, no needs at this time
--- NOTE | 2020-11-09 08:38 | NUR ---
pt is eating breakfast, laying down looking like he's sleeping in bed, was acepting of medication, states no needs at this time
--- NOTE | 2020-11-09 09:10 | NUR ---
pt is resting on his left side, regular breathing present, no needs at this time
--- NOTE | 2020-11-09 10:05 | NUR ---
pt is resting on his right side, no needs at this time, appears to be asleep, regular breathing observed
--- NOTE | 2020-11-09 11:05 | NUR ---
pt is sleeping on his right side, regular breathing present, no needs at this time
[2020-11-09 11:48] VITALS: BP 121/60
--- NOTE | 2020-11-09 12:05 | NUR ---
pt is supine in bed, eyes closed, regular breathing present, no needs at this time
--- NOTE | 2020-11-09 12:12 | NUR ---
pt mom called to check on patient, she is reassured that he is ok
--- NOTE | 2020-11-09 13:03 | NUR ---
pt remains supine in bed, regular breathing present, no needs at this time
--- NOTE | 2020-11-09 13:56 | NUR ---
Rajiv with [facility] has finished interviewing pt, he thinks that he is appropriate for rehab rather than mental health, he will call pt workers
--- NOTE | 2020-11-09 14:03 | NUR ---
pt is again laying on his left side, eyes closed, no needs at this time
--- NOTE | 2020-11-09 14:33 | NUR ---
relieving [place] for break, pt has been evaluated by [facility], clinician waiting to hear from [facility], plan to release [id number] and have pt go to [facility] for out patient referral to [facility]/drug rehab
--- NOTE | 2020-11-09 14:49 | NUR ---
pt is going to be dc to Mental health at [address] via taxi, gave pt yvette and concha
--- NOTE | 2020-11-09 14:54 | NUR ---
ETA for taxi is approx 1 hour
== END 2020-11-09 16:00 | disposition home or self-care (01) ==
LOC: ER 14:56
DX: R45.851 Suicidal ideations (principal); R44.1 Visual hallucinations; F41.9 Anxiety disorder, unspecified; F32.9 Major depressive disorder, single episode, unspecified; F15.90 Other stimulant use, unspecified, uncomplicated; F11.90 Opioid use, unspecified, uncomplicated; Z72.89 Other problems related to lifestyle; Z56.0 Unemployment, unspecified; Z59.0 Homelessness; Z79.899 Other long term (current) drug therapy
CPT/HCPCS: 36415; 80053; 80305; 80320; 81003; 84443; 85025; 99285

== ENCOUNTER 2020-12-05 17:20 | Emergency (ER) | payer MEDICAID ==
[~2020-12-05] VITALS: Ht 180.3 cm; Wt 94.5 kg
[~2020-12-05 17:20] MED LIST changes: +ESCI10TA PO
[2020-12-05 18:06] VITALS: BP 112/62
== END 2020-12-05 19:22 | disposition home or self-care (01) ==
LOC: ER 17:21
DX: M79.671 Pain in right foot (principal); M79.672 Pain in left foot; L98.9 Disorder of the skin and subcutaneous tissue, unspecified; F15.90 Other stimulant use, unspecified, uncomplicated; F11.90 Opioid use, unspecified, uncomplicated; Z56.0 Unemployment, unspecified; Z59.0 Homelessness; Z72.89 Other problems related to lifestyle; Z79.899 Other long term (current) drug therapy
CPT/HCPCS: 99281

== ENCOUNTER 2020-12-11 19:36 | Emergency (ER) | payer MEDICAID ==
[~2020-12-11] VITALS: Ht 180.3 cm; Wt 134.1 kg
[2020-12-11 21:52] LABS: URINE AMPHETAMINE SCREEN POSITIVE (Neg); URINE BARBITUATE SCREEN NEGATIVE (Neg); URINE BENZODIAZEPINES SCREEN NEGATIVE (Neg); URINE CANNABINOID SCREEN NEGATIVE (Neg); URINE COCAINE SCREEN NEGATIVE (Neg); URINE METHADONE SCREEN NEGATIVE (Neg); URINE OPIATE SCREEN POSITIVE (Neg); URINE PHENCYCLIDINE SCREEN NEGATIVE (Neg)
[2020-12-11 22:17] LABS: BASOPHILS # (AUTO) 0.1 X10'3 (0-0.2); BASOPHILS % (AUTO) 0.8 % (0-1); EOSINOPHILS # (AUTO) 0.3 X10'3 (0-0.9); EOSINOPHILS % (AUTO) 2.9 % (0-6); HEMATOCRIT 41.4 % (42.0-52.0); HEMOGLOBIN 13.6 g/dl (14.0-17.9); LYMPHOCYTES # (AUTO) 2.4 X10'3 (1.1-4.8); LYMPHOCYTES % (AUTO) 25.3 % (21-51); MEAN CORPUSCULAR HEMOGLOBIN 25.9 PG (27.0-31.0); MEAN CORPUSCULAR HGB CONC 32.8 g/dL (33.0-36.5); MEAN CORPUSCULAR VOLUME 78.8 FL (78-98); MEAN PLATELET VOLUME 7.9 FL (7.4-10.4); MONOCYTES # (AUTO) 1.1 X10'3 (0-0.9); MONOCYTES % (AUTO) 11.4 % (2-12); NEUTROPHILS # (AUTO) 5.8 X10'3 (1.8-7.7); NEUTROPHILS % (AUTO) 59.6 % (42-75); PLATELET COUNT 368 X10'3 (140-440); RED BLOOD COUNT 5.25 X10'6 (4.70-6.10); RED CELL DISTRIBUTION WIDTH 15.1 % (11.5-14.5); WHITE BLOOD COUNT 9.7 X10'3 (4.5-11.0)
[2020-12-11 22:25] LABS: ALANINE AMINOTRANSFERASE 34 U/L (12-78); ALBUMIN 3.7 G/DL (3.4-5.0); ALKALINE PHOSPHATASE 89 IU/L (46-116); ANION GAP 8 (8-16); ASPARTATE AMINO TRANSFERASE 19 U/L (10-37); BILIRUBIN,TOTAL 0.2 MG/DL (0.1-1.0); BLOOD UREA NITROGEN 18 MG/DL (7-18); BUN/CREATININE RATIO 21.4 (5.4-32.0); CALCIUM 8.9 MG/DL (8.5-10.1); CHLORIDE 103 MMOL/L (99-107); CREATININE 0.84 MG/DL (0.60-1.10); ETHANOL < 0.010 GM/DL (0.0-0.010); GLUCOSE 64 MG/DL (70-104); POTASSIUM 3.6 MMOL/L (3.5-5.1); SODIUM 143 MMOL/L (135-145); TOTAL CARBON DIOXIDE 31.9 MMOL/L (24-32); TOTAL PROTEIN 7.5 G/DL (6.4-8.2); eGFR > 90 ML/MIN
--- NOTE | 2020-12-11 22:30 | NUR ---
[facility] was made aware a STAR team client was in the ER.
--- NOTE | 2020-12-11 22:56 | NUR ---
The patient moved to bed 24 in the ER he is somulent
--- NOTE | 2020-12-11 23:36 | NUR ---
The patient appears to be sleeping. He was cooperative with getting a covid swab
--- NOTE | 2020-12-11 23:53 | NUR ---
Packet faxed to [facility]
--- NOTE | 2020-12-12 01:16 | NUR ---
Left message with [facility] and requested they fax a current med list for this patient
--- NOTE | 2020-12-12 02:45 | NUR ---
The patient appears to be sleeping
--- NOTE | 2020-12-12 04:54 | NUR ---
The patient appears to be sleeping
--- NOTE | 2020-12-12 09:45 | NUR ---
Yehuda from [facility] updated RN regarding Pts POC. Yehuda has arranged for an assiciate to evaluate Pt for substance abuse /counseling. Pt is sleeping in bed, awaiting for substance abuse counseler.
--- NOTE | 2020-12-12 10:27 | NUR ---
substance abuse counseler with Pt in room.
--- NOTE | 2020-12-12 11:59 | NUR ---
RN WAS NOTIFIED BY SHERINE ([facility]), PT IS NOW A 5150 HOLD.
--- NOTE | 2020-12-12 15:10 | NUR ---
ALEJANDRO CALLS FROM [facility], INFORMS RN THAT THEY NEED A UA AND TSH.
[2020-12-12 15:56] LABS: CLARITY,URINE CLEAR (Clear); COLOR,URINE YELLOW (Yellow); GLUCOSE, URINE NEGATIVE (Neg); KETONES,URINE NEGATIVE (Neg); LEUKOCYTE ESTERASE ,URINE NEGATIVE (Neg); NITRITES, URINE NEGATIVE (Neg); OCCULT BLOOD,URINE NEGATIVE (Neg); PROTEIN,URINE NEGATIVE (Neg); UROBILINOGEN,URINE 0.2 E.U/dL (0.2-1.0)
[2020-12-12 15:57] LABS: UA COLLECTION TYPE NON-SPECIFIED
--- NOTE | 2020-12-12 16:01 | NUR ---
GARTH FROM [facility], CALLED AND GATHERED PT MEDICAL INFORMATION/UPDATE ON PT. [facility] STILL PLANNING ON ACCEPTING PT.
[2020-12-12 20:09] VITALS: BP 119/53
== END 2020-12-12 20:11 ==
LOC: ER 19:38
DX: F23 Brief psychotic disorder (principal); Z20.822 Contact with and (suspected) exposure to COVID-19; F41.9 Anxiety disorder, unspecified; F32.9 Major depressive disorder, single episode, unspecified; F15.90 Other stimulant use, unspecified, uncomplicated; F11.90 Opioid use, unspecified, uncomplicated; Z72.89 Other problems related to lifestyle; Z56.0 Unemployment, unspecified; Z59.0 Homelessness; Z79.899 Other long term (current) drug therapy
CPT/HCPCS: 36415; 80053; 80305; 80320; 81003; 84443; 85025; 87426; 99285

== ENCOUNTER 2021-04-12 09:42 | Inpatient (IN) | payer MEDICAID ==
[~2021-04-12] VITALS: Ht 185.4 cm; Wt 94.4 kg
[2021-04-12] MEDS ORDERED: loperamide 2mg capsule PO PRN (12:20)
[2021-04-12] MEDS ORDERED: mag hydrox/Alum hydrox/simeth 30ml oral suspension PO PRN (12:20)
[2021-04-12] MEDS ORDERED: acetaminophen 325mg tablet PO PRN (12:20)
[2021-04-12] MEDS ORDERED: magnesium hydroxide 30ml (MOM) UD suspension PO PRN (12:20)
[2021-04-12] MEDS ORDERED: OLANZapine 5mg rapidly disint. tablet PO ONE (12:20)
--- NOTE | 2021-04-12 16:11 | NUR ---
Pt admitted today with LPS conservatorship seeking placement. Pt admitted from [facility]. Pt has history of schizoaffective disorder, and stated Hx of S/I. Pt given rapid COVID test with a negative result, also MRSA swab completed. Pt cooperative with admission process.
[2021-04-12] MEDS: LORazepam 1 MG tablet PO PRN (16:23)
[2021-04-12] MEDS: NICOTINE POLACRILEX 2 MG LOZENGE BC PRN (16:24)
[2021-04-12] MEDS ORDERED: DOCU100C40 PO (16:31)
[2021-04-12] MEDS ORDERED: CHOL50004 PO (16:31)
[2021-04-12] MEDS ORDERED: HYDR-3686 PO (16:31)
[2021-04-12] MEDS ORDERED: MULT-1085 PO (16:55)
[2021-04-12] MEDS ORDERED: PALI6TAB PO (16:55)
[2021-04-12 19:00] VITALS: BP 126/76
[2021-04-12] MEDS: hydrOXYzine 25 MG tablet PO SCH (20:55)
[2021-04-12] MEDS: traZODone 50mg tablet PO SCH (20:56)
--- NOTE | 2021-04-12 22:15 | NUR ---
Nursing Progress Note: Legal hold:LPS Client on involuntary status for GD. Report received from nurse with use of JOSHUA Vasques RN Why are they here:pt admitted today with [facility] conservatorship seeking placement. Pt admitted from [facility]. Pt has history of schizoaffective disorder, and stated Hx of S/I. Pt given rapid COVID test with a negative result, also MRSA swab completed. Pt cooperative with admission process.]. Assessment What has happened this shift: Patient appeared confused as to why he was here. Patient called mother asking if she was mad at him thinking that's why he was here. Nurse reassured patient he was supposed to be here and that he wasn't in any trouble. Patient shows signs of anxiety by balling up fist, when nurse attempted to give medication patient appeared to only be able to move his right index finger and pointer finger. Patient took all medication without issue. Patient appears restless. Patient keeps going back and forth between his bed and wondering the halls. Patient repetitively asked for snacks and morning medications. Patient stated he doesn't hear any voices or experiencing any hallucinations. Patient is cooperative and keeps to him self. Patient slept without difficulty. S/I, H/I: Denies A/VH: Denies Sleep: N/A ADL's: Within normal limits Group attendance: none on nights Were meds taken: yes Any med S/E: None observed Mental Status Exam Appearance: Clean, unshaven, in hospital scrubs Eye contact: intermitted Behavior: mild anxiety Speech: normal rate and rhythm Mood: cooperative Affect: Thought process linear Thought Content: Pt unclear why he is here, focused on food Cognition: alert Insight:poor Judgment:poor Interventions PRN's used: None Therapeutic interventions: Introduced self and established rapport, Provide reassurance patient is safe as need, maintained a safe and supportive environment, ensured contract for safety, provided clear and simple instructions, attempted to orient to reality, provided active listening and positive encouragement, encouraged independent performance of ADLs, and maintained Q 15min safety checks. Restraints/seclusion/emergency medication:None Justification of Continued Inpatient Treatment:Patient requires interruption of current crises, medication adjustment, and a safe and supportive environment
[2021-04-13] MEDS: cholecalciferol (vitamin D3) 1,000 unit (25mcg) tablet PO SCH (07:46)
[2021-04-13] MEDS: nicotine 21mg patch - 24 hr TD SCH (07:46)
[2021-04-13] MEDS: docusate sod 100mg capsule PO SCH (07:47)
[2021-04-13] MEDS: hydrOXYzine 25 MG tablet PO SCH ×2 (07:47→20:08)
[2021-04-13] MEDS: multivitamins, therapeutics tablet PO SCH (07:47)
[2021-04-13 08:00] VITALS: BP 112/70
[2021-04-13] MEDS ORDERED: PALIPERIDONE 3 MG TAB.ER.24 PO SCH (08:00)
[2021-04-13 09:43] LABS: HEMOGLOBIN A1C 5.5 % (4.5-6.2)
[2021-04-13 09:51] LABS: CHOL/HDL RATIO 3.3 (0.00-4.99); CHOLESTEROL 166 MG/DL (0-200); HDL CHOLESTEROL 50 MG/DL (35-60); LDL CHOLESTEROL 98 MG/DL (50-100); TRIGLYCERIDES 56 MG/DL (20-135)
[2021-04-13 17:10] LABS: ALANINE AMINOTRANSFERASE 32 U/L (12-78); ALBUMIN/GLOBULIN RATIO 1.1 (1.1-1.5); ALKALINE PHOSPHATASE 90 IU/L (46-116); ANION GAP 7 (8-16); ASPARTATE AMINO TRANSFERASE 17 U/L (10-37); BILIRUBIN,TOTAL 0.3 MG/DL (0.1-1.0); BLOOD UREA NITROGEN 13 MG/DL (7-18); BUN/CREATININE RATIO 14.4 (5.4-32.0); CALCIUM 8.8 MG/DL (8.5-10.1); CHLORIDE 104 MMOL/L (99-107); GLUCOSE 100 MG/DL (70-104); POTASSIUM 3.9 MMOL/L (3.5-5.1); SODIUM 137 MMOL/L (135-145); TOTAL CARBON DIOXIDE 25.6 MMOL/L (24-32); TOTAL PROTEIN 7.6 G/DL (6.4-8.2); eGFR > 90 ML/MIN
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
[2021-04-13] MEDS: traZODone 50mg tablet PO SCH (20:07)
[2021-04-13] MEDS: haloperidol 5mg tablet PO SCH (20:08)
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
[2021-04-14 07:42] VITALS: BP 103/47
[2021-04-14] MEDS: nicotine 21mg patch - 24 hr TD SCH (07:48)
[2021-04-14] MEDS: docusate sod 100mg capsule PO SCH (07:48)
[2021-04-14] MEDS: cholecalciferol (vitamin D3) 1,000 unit (25mcg) tablet PO SCH (07:49)
[2021-04-14] MEDS: multivitamins, therapeutics tablet PO SCH (07:49)
[2021-04-14] MEDS: hydrOXYzine 25 MG tablet PO SCH ×2 (07:49→19:51)
[2021-04-14] MEDS: PALIPERIDONE 3 MG TAB.ER.24 PO SCH (07:49)
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
[2021-04-14] MEDS: traZODone 50mg tablet PO SCH (20:06)
[2021-04-14] MEDS: haloperidol 5mg tablet PO SCH (20:06)
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
[2021-04-15 07:44] VITALS: BP 102/50
[2021-04-15] MEDS: nicotine 21mg patch - 24 hr TD SCH ×2 (08:00→08:39)
[2021-04-15] MEDS: multivitamins, therapeutics tablet PO SCH (08:39)
[2021-04-15] MEDS: docusate sod 100mg capsule PO SCH (08:39)
[2021-04-15] MEDS: cholecalciferol (vitamin D3) 1,000 unit (25mcg) tablet PO SCH (08:39)
[2021-04-15] MEDS: hydrOXYzine 25 MG tablet PO SCH ×2 (08:39→20:07)
[2021-04-15] MEDS: PALIPERIDONE 3 MG TAB.ER.24 PO SCH (08:39)
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
[2021-04-15] MEDS ORDERED: nicotine 21mg patch - 24 hr TD ONE (17:10)
[2021-04-15 19:41] VITALS: BP 96/58
[2021-04-15] MEDS: haloperidol 5mg tablet PO SCH (20:07)
[2021-04-15] MEDS: traZODone 50mg tablet PO SCH (20:07)
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
[2021-04-16 07:51] VITALS: BP 102/39
[2021-04-16] MEDS: nicotine 21mg patch - 24 hr TD SCH (08:00)
[2021-04-16] MEDS: multivitamins, therapeutics tablet PO SCH (08:09)
[2021-04-16] MEDS: PALIPERIDONE 3 MG TAB.ER.24 PO SCH (08:09)
[2021-04-16] MEDS: docusate sod 100mg capsule PO SCH (08:09)
[2021-04-16] MEDS: cholecalciferol (vitamin D3) 1,000 unit (25mcg) tablet PO SCH (08:09)
[2021-04-16] MEDS: hydrOXYzine 25 MG tablet PO SCH ×2 (08:09→20:53)
--- NOTE | 2021-04-16 14:51 | NUR ---
Initial: Pt admitted w/ increased agitation from previous facility. Pt able to eat well, mostly 100% of meals on a Regular diet meeting needs. Pt compliant w/ meds. LBM 04/12 receiving routine colace. No nutrition intervention implemented at this time, will continue to monitor. Recs: 1. Continue Regular diet as tolerated 2. Bowel care per rx 3. Weekly wts Addendum: 04/16/21 at [address] Amended: Links added.
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
[2021-04-16 19:58] VITALS: BP 98/58
[2021-04-16] MEDS: traZODone 50mg tablet PO SCH (20:53)
[2021-04-16] MEDS: haloperidol 5mg tablet PO SCH (20:53)
[2021-04-16] MEDS: mupirocin 2% ointment 22GM TP SCH (20:54)
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
[2021-04-17] MEDS: cholecalciferol (vitamin D3) 1,000 unit (25mcg) tablet PO SCH (07:53)
[2021-04-17] MEDS: hydrOXYzine 25 MG tablet PO SCH ×2 (07:53→20:02)
[2021-04-17] MEDS: PALIPERIDONE 3 MG TAB.ER.24 PO SCH (07:53)
[2021-04-17] MEDS: multivitamins, therapeutics tablet PO SCH (07:53)
[2021-04-17] MEDS: docusate sod 100mg capsule PO SCH (07:53)
[2021-04-17 08:00] VITALS: BP 127/52
[2021-04-17] MEDS: mupirocin 2% ointment 22GM TP SCH ×2 (08:00→20:04)
[2021-04-17] MEDS: nicotine 21mg patch - 24 hr TD SCH (08:00)
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
[2021-04-17] MEDS: LORazepam 1 MG tablet PO PRN (20:02)
[2021-04-17] MEDS: haloperidol 5mg tablet PO SCH (20:03)
[2021-04-17] MEDS: traZODone 50mg tablet PO SCH (20:03)
[2021-04-17 20:55] VITALS: BP 96/58
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
[2021-04-18 07:00] VITALS: BP 109/47
[2021-04-18] MEDS: nicotine 21mg patch - 24 hr TD SCH ×2 (08:00→08:34)
[2021-04-18] MEDS: multivitamins, therapeutics tablet PO SCH (08:35)
[2021-04-18] MEDS: haloperidol 5mg tablet PO SCH ×2 (08:35→20:03)
[2021-04-18] MEDS: PALIPERIDONE 3 MG TAB.ER.24 PO SCH (08:35)
[2021-04-18] MEDS: docusate sod 100mg capsule PO SCH (08:35)
[2021-04-18] MEDS: cholecalciferol (vitamin D3) 1,000 unit (25mcg) tablet PO SCH (08:35)
[2021-04-18] MEDS: hydrOXYzine 25 MG tablet PO SCH ×2 (08:35→20:03)
[2021-04-18] MEDS: mupirocin 2% ointment 22GM TP SCH ×2 (08:36→20:00)
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
[2021-04-18] MEDS: traZODone 50mg tablet PO SCH (20:03)
[2021-04-18 20:05] VITALS: BP 112/60
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
[2021-04-19] MEDS: docusate sod 100mg capsule PO SCH (07:46)
[2021-04-19] MEDS: haloperidol 5mg tablet PO SCH ×2 (07:46→20:02)
[2021-04-19] MEDS: hydrOXYzine 25 MG tablet PO SCH ×2 (07:46→20:02)
[2021-04-19] MEDS: cholecalciferol (vitamin D3) 1,000 unit (25mcg) tablet PO SCH (07:46)
[2021-04-19] MEDS: multivitamins, therapeutics tablet PO SCH (07:46)
[2021-04-19] MEDS: PALIPERIDONE 3 MG TAB.ER.24 PO SCH (07:46)
[2021-04-19] MEDS: mupirocin 2% ointment 22GM TP SCH ×2 (07:48→20:00)
[2021-04-19 08:00] VITALS: BP 106/50
[2021-04-19] MEDS: nicotine 21mg patch - 24 hr TD SCH (08:00)
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
[2021-04-19 20:00] VITALS: BP 92/48
[2021-04-19] MEDS: traZODone 50mg tablet PO SCH (20:02)
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
[2021-04-20 08:00] VITALS: BP 96/61
[2021-04-20] MEDS: haloperidol 5mg tablet PO SCH ×2 (08:29→20:15)
[2021-04-20] MEDS: hydrOXYzine 25 MG tablet PO SCH ×2 (08:29→20:15)
[2021-04-20] MEDS: docusate sod 100mg capsule PO SCH (08:29)
[2021-04-20] MEDS: nicotine 21mg patch - 24 hr TD SCH (08:30)
[2021-04-20] MEDS: cholecalciferol (vitamin D3) 1,000 unit (25mcg) tablet PO SCH (08:30)
[2021-04-20] MEDS: multivitamins, therapeutics tablet PO SCH (08:30)
[2021-04-20] MEDS: PALIPERIDONE 3 MG TAB.ER.24 PO SCH (08:30)
[2021-04-20] MEDS: mupirocin 2% ointment 22GM TP SCH ×2 (08:34→20:15)
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
[2021-04-20] MEDS: NICOTINE POLACRILEX 2 MG LOZENGE BC PRN (16:00)
[2021-04-20] MEDS: paliperidone palmitate inj 234 MG/1.5 ML SYRINGE IM SCH (16:22)
--- NOTE | 2021-04-20 17:36 | NUR ---
MINERVA LYNCH 234MG IM LEFT DELTOID
--- NOTE | 2021-04-20 17:47 | NUR ---
VS BP 122/77, P 61
[2021-04-20 20:00] VITALS: BP 113/58
[2021-04-20] MEDS: traZODone 50mg tablet PO SCH (20:15)
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
[2021-04-21] MEDS: multivitamins, therapeutics tablet PO SCH (07:56)
[2021-04-21] MEDS: haloperidol 5mg tablet PO SCH ×2 (07:56→20:05)
[2021-04-21] MEDS: PALIPERIDONE 3 MG TAB.ER.24 PO SCH (07:57)
[2021-04-21] MEDS: docusate sod 100mg capsule PO SCH (07:57)
[2021-04-21] MEDS: hydrOXYzine 25 MG tablet PO SCH ×2 (07:57→20:05)
[2021-04-21] MEDS: cholecalciferol (vitamin D3) 1,000 unit (25mcg) tablet PO SCH (07:57)
[2021-04-21 08:00] VITALS: BP 102/45
[2021-04-21] MEDS: nicotine 21mg patch - 24 hr TD SCH (08:00)
[2021-04-21] MEDS: mupirocin 2% ointment 22GM TP SCH ×2 (08:13→20:05)
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
[2021-04-21 20:00] VITALS: BP 89/40
[2021-04-21] MEDS: traZODone 50mg tablet PO SCH (20:05)
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
[2021-04-22 08:00] VITALS: BP 91/43
[2021-04-22] MEDS: haloperidol 5mg tablet PO SCH ×2 (08:14→21:33)
[2021-04-22] MEDS: multivitamins, therapeutics tablet PO SCH (08:14)
[2021-04-22] MEDS: PALIPERIDONE 3 MG TAB.ER.24 PO SCH (08:15)
[2021-04-22] MEDS: cholecalciferol (vitamin D3) 1,000 unit (25mcg) tablet PO SCH (08:15)
[2021-04-22] MEDS: hydrOXYzine 25 MG tablet PO SCH ×2 (08:15→21:34)
[2021-04-22] MEDS: docusate sod 100mg capsule PO SCH (08:15)
[2021-04-22] MEDS: nicotine 21mg patch - 24 hr TD SCH (08:16)
[2021-04-22] MEDS: mupirocin 2% ointment 22GM TP SCH ×2 (08:16→20:00)
[2021-04-22 13:32] VITALS: BP 113/62
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
[2021-04-22 20:07] VITALS: BP 115/58
[2021-04-22] MEDS: traZODone 50mg tablet PO SCH (21:33)
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
[2021-04-23] MEDS: cholecalciferol (vitamin D3) 1,000 unit (25mcg) tablet PO SCH (07:53)
[2021-04-23] MEDS: docusate sod 100mg capsule PO SCH (07:53)
[2021-04-23] MEDS: haloperidol 5mg tablet PO SCH ×2 (07:53→20:25)
[2021-04-23] MEDS: multivitamins, therapeutics tablet PO SCH (07:53)
[2021-04-23] MEDS: hydrOXYzine 25 MG tablet PO SCH ×2 (07:53→20:25)
[2021-04-23] MEDS: PALIPERIDONE 3 MG TAB.ER.24 PO SCH (07:53)
[2021-04-23] MEDS: nicotine 21mg patch - 24 hr TD SCH (08:00)
[2021-04-23] MEDS: mupirocin 2% ointment 22GM TP SCH ×2 (08:00→20:29)
--- NOTE | 2021-04-23 14:48 | NUR ---
Pt. attended group today. Todays group was about the difference between Growth Mindset vs. Fixed Mindset. We learned about the differences and then discussed what aspect of developing a growth mindset they wanted to work on. Pt. engaged well in the group discussion and participated in the written activity. His demeanor was pleasant, calm and compliant. He was alert and oriented X 4. He shared that he has a son that he wants to be back connected to and has the goal of getting stable and staying off drugs. He feels he needs to stop worrying about what others think of him or attempting to fit in with people because it doesn't help him toward the positive goals he has for his life. His thought content and thought process appeared to be WNL. He listened well to his peers and was conscientious of others in the group. Lucy Gold LCSW
--- NOTE | 2021-04-23 14:54 | NUR ---
Reassessment: Pt continues w/ adequate PO intake, mostly 100% of meals on a Regular diet meeting needs. Pt compliant w/ meds. LBM 04/12 receiving routine colace. No nutrition intervention implemented at this time, will continue to monitor. Recs: 1. Continue Regular diet as tolerated 2. Bowel care per rx 3. Weekly wts Addendum: 04/23/21 at [address] Amended: Links added.
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
[2021-04-23] MEDS: traZODone 50mg tablet PO SCH (20:25)
[2021-04-23 20:34] VITALS: BP 98/56
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
[2021-04-24 08:00] VITALS: BP 133/71
[2021-04-24] MEDS: nicotine 21mg patch - 24 hr TD SCH (08:00)
[2021-04-24] MEDS: mupirocin 2% ointment 22GM TP SCH ×2 (08:00→20:14)
[2021-04-24] MEDS: hydrOXYzine 25 MG tablet PO SCH ×2 (08:37→20:14)
[2021-04-24] MEDS: docusate sod 100mg capsule PO SCH (08:37)
[2021-04-24] MEDS: haloperidol 5mg tablet PO SCH ×2 (08:37→20:14)
[2021-04-24] MEDS: PALIPERIDONE 3 MG TAB.ER.24 PO SCH (08:37)
[2021-04-24] MEDS: multivitamins, therapeutics tablet PO SCH (08:37)
[2021-04-24] MEDS: cholecalciferol (vitamin D3) 1,000 unit (25mcg) tablet PO SCH (08:37)
--- NOTE | 2021-04-24 13:54 | NUR ---
PLACEMENT Sent placement packet to [place] office. SHELLI Gee
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
[2021-04-24 20:00] VITALS: BP_SYST 109; BP_DIAS 41; BP_DIAS 61
[2021-04-24] MEDS: traZODone 50mg tablet PO SCH (20:14)
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
[2021-04-25 07:38] VITALS: BP 96/50
[2021-04-25] MEDS: nicotine 21mg patch - 24 hr TD SCH (07:47)
[2021-04-25] MEDS: multivitamins, therapeutics tablet PO SCH (07:51)
[2021-04-25] MEDS: cholecalciferol (vitamin D3) 1,000 unit (25mcg) tablet PO SCH (07:51)
[2021-04-25] MEDS: haloperidol 5mg tablet PO SCH ×2 (07:51→20:10)
[2021-04-25] MEDS: hydrOXYzine 25 MG tablet PO SCH ×2 (07:51→20:10)
[2021-04-25] MEDS: PALIPERIDONE 3 MG TAB.ER.24 PO SCH (07:51)
[2021-04-25] MEDS: docusate sod 100mg capsule PO SCH (07:51)
[2021-04-25] MEDS: mupirocin 2% ointment 22GM TP SCH ×2 (08:00→20:09)
--- NOTE | 2021-04-25 09:45 | NUR ---
Pt. attended group today. Today we talked about how to Self-Nurture ourselves followed up by doing a collage/visualization page about what they wrote down about places, people and situations that are nurturing to them. Pt engaged well in the group and in the collage. He was talkative with his peers and shared appropriately his thoughts and feelings around the topic. He appeared to be in a good mood with a restricted range of affect. He shared about his family growing up, how it was chaotic and he was never taught the skills in life such as how to find a job or how to keep a job. He shared that his goal is to get a job and get himself a normal life once he can stabilize and not use drugs. His demeanor was calm and compliant. He was able to share who were safe persons in his life and places. His collage reflected the theme. He was alert and oriented X 4. His thought content and thought process was WNL. Lucy Gold LCSW
--- NOTE | 2021-04-25 14:00 | NUR ---
Patient was both in and out of group today throughout the drawing process, however remained motivated to complete the activity. Patient chose to share during the group process. He remained respectful to others. His thought process remains coherent, simple and seemed meaningful to him AEB by his smiling affect and his journal writing: "I am successful and safe. I will overcome this life I don'tlike. I can be safe." Araceli Maldonado MA, GARAGE DOOR OPENER INSTALLER #[id number]
--- NOTE | 2021-04-25 14:00 | NUR ---
Patient presented with anxious mood and affect. Patient was motivated however, to attend and was able to understand and complete both the art and journaling activity. Patient wrote about his desires "I want to have a place to live. I need food clothing, usp, good support system, medicine and my little brother, my older sister and my Mom back in my life. 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 I believe in the [employer]om which in in [facility]. I am valued, loved and cared for."Araceli Maldonado MA (Alena Marie). [facility] #[id number] [facility] Art Therapist Addendum: 04/26/21 at 1341 by Araceli YATES Amended: Links added.
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
[2021-04-25 19:21] VITALS: BP 111/54
[2021-04-25] MEDS: traZODone 50mg tablet PO SCH (20:10)
[2021-04-25] MEDS: acetaminophen 325mg tablet PO PRN (20:11)
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
[2021-04-26 07:27] VITALS: BP 99/36
[2021-04-26 08:00] VITALS: BP 100/52
[2021-04-26] MEDS: PALIPERIDONE 3 MG TAB.ER.24 PO SCH (08:34)
[2021-04-26] MEDS: multivitamins, therapeutics tablet PO SCH (08:34)
[2021-04-26] MEDS: haloperidol 5mg tablet PO SCH ×2 (08:34→20:06)
[2021-04-26] MEDS: docusate sod 100mg capsule PO SCH (08:34)
[2021-04-26] MEDS: hydrOXYzine 25 MG tablet PO SCH ×2 (08:34→20:06)
[2021-04-26] MEDS: cholecalciferol (vitamin D3) 1,000 unit (25mcg) tablet PO SCH (08:34)
[2021-04-26] MEDS: mupirocin 2% ointment 22GM TP SCH ×2 (08:37→20:07)
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
[2021-04-26 19:00] VITALS: BP 107/54
[2021-04-26] MEDS: traZODone 50mg tablet PO SCH (20:06)
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
[2021-04-27 07:40] VITALS: BP 102/39
[2021-04-27 08:00] VITALS: BP 102/56
[2021-04-27] MEDS: haloperidol 5mg tablet PO SCH ×2 (08:11→20:40)
[2021-04-27] MEDS: cholecalciferol (vitamin D3) 1,000 unit (25mcg) tablet PO SCH (08:11)
[2021-04-27] MEDS: hydrOXYzine 25 MG tablet PO SCH ×2 (08:11→20:41)
[2021-04-27] MEDS: multivitamins, therapeutics tablet PO SCH (08:11)
[2021-04-27] MEDS: PALIPERIDONE 3 MG TAB.ER.24 PO SCH (08:11)
[2021-04-27] MEDS: docusate sod 100mg capsule PO SCH (08:11)
[2021-04-27] MEDS: mupirocin 2% ointment 22GM TP SCH ×2 (08:43→20:41)
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
[2021-04-27 19:00] VITALS: BP 80/40
[2021-04-27] MEDS: traZODone 50mg tablet PO SCH (20:41)
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
[2021-04-28] MEDS: cholecalciferol (vitamin D3) 1,000 unit (25mcg) tablet PO SCH (08:22)
[2021-04-28] MEDS: multivitamins, therapeutics tablet PO SCH (08:22)
[2021-04-28] MEDS: PALIPERIDONE 3 MG TAB.ER.24 PO SCH (08:22)
[2021-04-28] MEDS: haloperidol 5mg tablet PO SCH ×2 (08:22→20:11)
[2021-04-28] MEDS: docusate sod 100mg capsule PO SCH (08:22)
[2021-04-28] MEDS: hydrOXYzine 25 MG tablet PO SCH ×2 (08:22→20:12)
[2021-04-28 08:24] VITALS: BP 106/52
[2021-04-28] MEDS: mupirocin 2% ointment 22GM TP SCH ×2 (11:35→20:14)
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
[2021-04-28] MEDS: traZODone 50mg tablet PO SCH (20:12)
[2021-04-28 20:38] VITALS: BP 123/79
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
[2021-04-29 07:36] VITALS: BP 97/48
[2021-04-29] MEDS: hydrOXYzine 25 MG tablet PO SCH ×2 (07:47→20:09)
[2021-04-29] MEDS: docusate sod 100mg capsule PO SCH (07:47)
[2021-04-29] MEDS: haloperidol 5mg tablet PO SCH ×2 (07:48→20:09)
[2021-04-29] MEDS: multivitamins, therapeutics tablet PO SCH (07:48)
[2021-04-29] MEDS: cholecalciferol (vitamin D3) 1,000 unit (25mcg) tablet PO SCH (07:48)
[2021-04-29] MEDS: PALIPERIDONE 3 MG TAB.ER.24 PO SCH (07:48)
[2021-04-29] MEDS: mupirocin 2% ointment 22GM TP SCH ×2 (08:00→20:10)
[2021-04-29] MEDS: NICOTINE POLACRILEX 2 MG LOZENGE BC PRN (09:33)
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
[2021-04-29 19:58] VITALS: BP 118/58
[2021-04-29] MEDS: traZODone 50mg tablet PO SCH (20:09)
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
[2021-04-30] MEDS: hydrOXYzine 25 MG tablet PO SCH ×2 (08:52→20:10)
[2021-04-30] MEDS: docusate sod 100mg capsule PO SCH (08:52)
[2021-04-30] MEDS: PALIPERIDONE 3 MG TAB.ER.24 PO SCH (08:52)
[2021-04-30] MEDS: multivitamins, therapeutics tablet PO SCH (08:52)
[2021-04-30] MEDS: cholecalciferol (vitamin D3) 1,000 unit (25mcg) tablet PO SCH (08:52)
[2021-04-30] MEDS: haloperidol 5mg tablet PO SCH ×2 (08:53→20:10)
[2021-04-30] MEDS: mupirocin 2% ointment 22GM TP SCH ×2 (09:25→20:12)
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
[2021-04-30] MEDS: traZODone 50mg tablet PO SCH (20:09)
[2021-04-30 20:14] VITALS: BP 101/58
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
[2021-05-01 08:00] VITALS: BP 107/57
[2021-05-01] MEDS: cholecalciferol (vitamin D3) 1,000 unit (25mcg) tablet PO SCH (08:38)
[2021-05-01] MEDS: docusate sod 100mg capsule PO SCH (08:38)
[2021-05-01] MEDS: haloperidol 5mg tablet PO SCH ×2 (08:38→20:02)
[2021-05-01] MEDS: PALIPERIDONE 3 MG TAB.ER.24 PO SCH (08:38)
[2021-05-01] MEDS: hydrOXYzine 25 MG tablet PO SCH ×2 (08:38→20:02)
[2021-05-01] MEDS: multivitamins, therapeutics tablet PO SCH (08:38)
--- NOTE | 2021-05-01 09:17 | NUR ---
Reassessment: Pt continues w/ adequate PO intake, mostly 100% of meals on a Regular diet meeting needs. Pt compliant w/ meds. LBM 04/29 receiving routine colace. No nutrition intervention implemented at this time, will continue to monitor. Recs: 1. Continue Regular diet as tolerated 2. Bowel care per rx 3. Weekly wts Addendum: 05/01/21 at [address] Amended: Links added.
[2021-05-01] MEDS: mupirocin 2% ointment 22GM TP SCH ×2 (10:42→20:03)
--- NOTE | 2021-05-01 13:29 | NUR ---
Pt. attended group today. We talked about how our thoughts affect our feelings and behaviors. We started the session with talkng about gratitude and how gratitude can change our perspective about the things we think. This Rolled Materials Worker emphasized that today's group was about catching your thoughts in order to recognize that you can change your perspective and thoughts which can then change the trajectory of you behavior. Pt. engaged in the discussion and the written activity well. He was a bit lethargic today and reported that he wasn't necessarily tired but was feeling a bit depressed. He reported he was grateful for his spirituality, Boom and his Conservator was going to talk to [facility] for him. He spoke a lot about the hope he has in his ady and in the idea that there is something after this earth. He struggled a bit to understand how his thoughts lead to behaviors especially when this Rolled Materials Worker related this to his substance usage. He did not want to talk about the things that trigger him to use substances. He reported that his favorite part of the group today was thinking about what he was grateful for. He was alert and oriented X 4. His thought content and thought process was WNL. Lucy Gold LCSW
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
--- NOTE | 2021-05-01 17:48 | NUR ---
Art Therapy Group Continued: Patient entered group late, however, was able to catch up, follow and complete both his drawing and the journaling. He wrote from his drawing of the Panic Wave to peaceful place... " I am your wave. I think positive thoughts. I feel comfort. I wish good things for my son. I want my son to be happy and that he knows how I love him very much and care for him. I will do my best ... I will do this in time. I believe Boom loves me. I am healing." Patient was pleasant, quiet, willing to share yet had limited interactions with his peers. * Please refer to the group note in [place] for a complete assessment. Araceli Maldonado MA, [facility] #[id number] Art Therapist Addendum: 05/01/21 at 1750 by Araceli Maldonado SS Amended: Links added.
[2021-05-01 19:00] VITALS: BP 97/55
[2021-05-01] MEDS: traZODone 50mg tablet PO SCH (20:02)
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
[2021-05-02 08:00] VITALS: BP 112/72
[2021-05-02] MEDS: haloperidol 5mg tablet PO SCH ×2 (08:29→20:38)
[2021-05-02] MEDS: cholecalciferol (vitamin D3) 1,000 unit (25mcg) tablet PO SCH (08:29)
[2021-05-02] MEDS: PALIPERIDONE 3 MG TAB.ER.24 PO SCH (08:29)
[2021-05-02] MEDS: hydrOXYzine 25 MG tablet PO SCH ×2 (08:29→20:37)
[2021-05-02] MEDS: multivitamins, therapeutics tablet PO SCH (08:29)
[2021-05-02] MEDS: docusate sod 100mg capsule PO SCH (08:29)
[2021-05-02] MEDS: mupirocin 2% ointment 22GM TP SCH ×2 (11:14→20:38)
--- NOTE | 2021-05-02 17:32 | NUR ---
Group Art Tx Continued:Patient was able to follow and complete both activities as directed. Patient was quite yet responsive to the process. Patient remained able to listen as others shared appropriately. He did not interact much with his pers. He journaled from his drawing: " I am locking up my hurt and short comings. 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 Araceli Maldonado MA, [employer]ER #[id number] [facility], Art Therapist Addendum: 05/02/21 at 1734 by Araceli YATES Amended: Links added.
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
[2021-05-02] MEDS: traZODone 50mg tablet PO SCH (20:37)
[2021-05-02 20:47] VITALS: BP 114/59
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
[2021-05-03 07:00] VITALS: BP 102/50
[2021-05-03] MEDS: hydrOXYzine 25 MG tablet PO SCH ×2 (07:56→21:51)
[2021-05-03] MEDS: multivitamins, therapeutics tablet PO SCH (07:56)
[2021-05-03] MEDS: PALIPERIDONE 3 MG TAB.ER.24 PO SCH (07:57)
[2021-05-03] MEDS: haloperidol 5mg tablet PO SCH ×2 (07:57→21:52)
[2021-05-03] MEDS: cholecalciferol (vitamin D3) 1,000 unit (25mcg) tablet PO SCH (07:57)
[2021-05-03] MEDS: mupirocin 2% ointment 22GM TP SCH ×2 (07:57→20:00)
[2021-05-03] MEDS: docusate sod 100mg capsule PO SCH (07:57)
--- NOTE | 2021-05-03 09:30 | NUR ---
Pt attended group today. We talked about reframing thoughts utilizing a picture where they had to write down what thoughts there were struggling with today. Patients then constructed Vision Pages/Collages with inspiring words and pictures to work toward rewire these thoughts into positive affirmations. Pt. engaged in the group today though he appeared a bit lethargic in his demeanor. He sat at the back of the group and kept to himself for the most part. He did do the exercise and put together a collage, he was in an out of the room a lot. He shared that he is feeling pretty stressed out and anxious right now to get out of [facility], this is what he wrote down on his page about thoughts he was struggling with. Pt then shared his collage which he had placed pictures that were meaningful to him and he reported made him feel happy. He was alert and oriented X 4. His thought content and thought process was WNL. He was calm and compliant, pleasant to this Rouge Miller and peers. Lucy Gold LCSW
[2021-05-03] MEDS: NICOTINE POLACRILEX 2 MG LOZENGE BC PRN (11:55)
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
[2021-05-03 19:00] VITALS: BP 108/55
[2021-05-03] MEDS: traZODone 50mg tablet PO SCH (21:52)
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
--- NOTE | 2021-05-04 07:38 | NUR ---
PLACEMENT UPDATE Packet is in the Q at [facility]. SHELLI Gee
[2021-05-04 08:00] VITALS: BP 100/49
[2021-05-04] MEDS: mupirocin 2% ointment 22GM TP SCH ×2 (08:00→20:00)
[2021-05-04] MEDS: docusate sod 100mg capsule PO SCH (08:19)
[2021-05-04] MEDS: multivitamins, therapeutics tablet PO SCH (08:19)
[2021-05-04] MEDS: hydrOXYzine 25 MG tablet PO SCH ×2 (08:19→22:36)
[2021-05-04] MEDS: cholecalciferol (vitamin D3) 1,000 unit (25mcg) tablet PO SCH (08:19)
[2021-05-04] MEDS: PALIPERIDONE 3 MG TAB.ER.24 PO SCH (08:19)
[2021-05-04] MEDS: haloperidol 5mg tablet PO SCH ×2 (08:19→22:36)
[2021-05-04] MEDS: NICOTINE POLACRILEX 2 MG LOZENGE BC PRN (17:21)
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
[2021-05-04 20:32] VITALS: BP 119/55
[2021-05-04] MEDS: traZODone 50mg tablet PO SCH (22:36)
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
[2021-05-05 08:00] VITALS: BP 103/51
[2021-05-05] MEDS: mupirocin 2% ointment 22GM TP SCH ×2 (08:00→20:00)
[2021-05-05] MEDS: cholecalciferol (vitamin D3) 1,000 unit (25mcg) tablet PO SCH (08:40)
[2021-05-05] MEDS: PALIPERIDONE 3 MG TAB.ER.24 PO SCH (08:40)
[2021-05-05] MEDS: docusate sod 100mg capsule PO SCH (08:41)
[2021-05-05] MEDS: hydrOXYzine 25 MG tablet PO SCH ×2 (08:41→21:19)
[2021-05-05] MEDS: multivitamins, therapeutics tablet PO SCH (08:41)
[2021-05-05] MEDS: haloperidol 5mg tablet PO SCH ×2 (08:41→21:17)
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
[2021-05-05] MEDS: NICOTINE POLACRILEX 2 MG LOZENGE BC PRN (16:45)
[2021-05-05 19:33] VITALS: BP 106/54
[2021-05-05] MEDS: traZODone 50mg tablet PO SCH (21:16)
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
[2021-05-06 08:00] VITALS: BP 105/52
[2021-05-06] MEDS: hydrOXYzine 25 MG tablet PO SCH ×2 (08:29→20:47)
[2021-05-06] MEDS: docusate sod 100mg capsule PO SCH (08:29)
[2021-05-06] MEDS: multivitamins, therapeutics tablet PO SCH (08:29)
[2021-05-06] MEDS: haloperidol 5mg tablet PO SCH ×2 (08:29→20:47)
[2021-05-06] MEDS: PALIPERIDONE 3 MG TAB.ER.24 PO SCH (08:29)
[2021-05-06] MEDS: cholecalciferol (vitamin D3) 1,000 unit (25mcg) tablet PO SCH (08:30)
[2021-05-06] MEDS: mupirocin 2% ointment 22GM TP SCH ×2 (08:30→20:48)
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
[2021-05-06 20:36] VITALS: BP 97/55
[2021-05-06] MEDS: traZODone 50mg tablet PO SCH (20:53)
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
[2021-05-07] MEDS: multivitamins, therapeutics tablet PO SCH (07:52)
[2021-05-07] MEDS: cholecalciferol (vitamin D3) 1,000 unit (25mcg) tablet PO SCH (07:52)
[2021-05-07] MEDS: docusate sod 100mg capsule PO SCH (07:52)
[2021-05-07] MEDS: hydrOXYzine 25 MG tablet PO SCH ×2 (07:53→20:24)
[2021-05-07] MEDS: PALIPERIDONE 3 MG TAB.ER.24 PO SCH (07:53)
[2021-05-07] MEDS: haloperidol 5mg tablet PO SCH ×2 (07:53→20:24)
[2021-05-07 08:00] VITALS: BP 96/52
[2021-05-07] MEDS: mupirocin 2% ointment 22GM TP SCH ×2 (08:00→20:24)
--- NOTE | 2021-05-07 09:44 | NUR ---
Pt. attended group today. Today's group was about the different communications styles i.e passive, aggressive and assertive. We discussed what the characteristics of each style was. We then discussed where they saw themselves at now and where they would like to be with their communication style. Pt. was quiet in the group today. He did come in a bit late to group but did share that he feels he is an introvert and tends to be on the passive side with his communication. He listened to his peers and this Recreational Counselor well. He sat calmly in his seat and was pleasant in his demeanor. He was alert and oriented X 4. His thought content and thought process was WNL. Lucy Gold LCSW
--- NOTE | 2021-05-07 15:36 | NUR ---
Reassessment: Pt continues w/ adequate PO intake, mostly 100% of meals on a Regular diet meeting needs. Pt compliant w/ meds. LBM 05/04 receiving routine colace. No nutrition intervention implemented at this time, will continue to monitor. Recs: 1. Continue Regular diet as tolerated 2. Bowel care per rx 3. Weekly wts Addendum: 05/07/21 at [address] Amended: Links added.
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
[2021-05-07 20:00] VITALS: BP 96/60
[2021-05-07] MEDS: traZODone 50mg tablet PO SCH (20:24)
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
[2021-05-08] MEDS: hydrOXYzine 25 MG tablet PO SCH ×2 (07:52→20:54)
[2021-05-08] MEDS: cholecalciferol (vitamin D3) 1,000 unit (25mcg) tablet PO SCH (07:52)
[2021-05-08] MEDS: PALIPERIDONE 3 MG TAB.ER.24 PO SCH (07:52)
[2021-05-08] MEDS: haloperidol 5mg tablet PO SCH ×2 (07:53→20:53)
[2021-05-08] MEDS: multivitamins, therapeutics tablet PO SCH (07:53)
[2021-05-08] MEDS: docusate sod 100mg capsule PO SCH (07:53)
[2021-05-08 08:00] VITALS: BP 102/65
[2021-05-08] MEDS: mupirocin 2% ointment 22GM TP SCH ×2 (08:00→20:54)
[2021-05-08 10:30] VITALS: BP 102/65
--- NOTE | 2021-05-08 14:11 | NUR ---
Pt. attended group today. We talked about Communication today focusing on how to utilize I messages. This Senior Svp shared how to create an I message and then we practiced writing them on the board. We also did a drawing of their three favorite animals, the Pt. had to write out what characteristic they like about each animal and create a drawing of a new animal. Pt. engaged well in the group today. He sat quietly in his seat, he engaged in the drawing and listed his favorite animals. He shared appropriately in the group about what his favorite animals. His mood was good with a restricted affect. His demeanor was calm and compliant. He appeared to enjoy the group today. Lucy Gold LCSW
[2021-05-08] MEDS: LORazepam 1 MG tablet PO PRN (15:13)
--- NOTE | 2021-05-08 17:19 | NUR ---
Group Art Tx Continued: Patient was attentive to the group process and was able to complete both his drawing and journaling. His art work expressed a focus on his future and desire for family. Patient also expressed mood fluctuations from depressed to hopeful. Patient was somewhat distracted having a pain level of 7/10. He remained able to listen to others during group process and share appropriately *Please refer to the [facility] Case Notes for entire overview. Araceli Maldonado MA, MOTION PICTURE PROJECTIONIST APPRENTICE #[id number] [facility], Art Therapist Addendum: 05/08/21 at 1721 by Araceli YATES Amended: Links added.
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
[2021-05-08] MEDS: NICOTINE POLACRILEX 2 MG LOZENGE BC PRN (18:59)
[2021-05-08 19:51] VITALS: BP 106/67
[2021-05-08] MEDS: traZODone 50mg tablet PO SCH (20:53)
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
[2021-05-09] MEDS: docusate sod 100mg capsule PO SCH (07:59)
[2021-05-09] MEDS: cholecalciferol (vitamin D3) 1,000 unit (25mcg) tablet PO SCH (07:59)
[2021-05-09] MEDS: haloperidol 5mg tablet PO SCH ×2 (07:59→20:42)
[2021-05-09] MEDS: mupirocin 2% ointment 22GM TP SCH ×2 (07:59→19:56)
[2021-05-09] MEDS: PALIPERIDONE 3 MG TAB.ER.24 PO SCH (07:59)
[2021-05-09] MEDS: multivitamins, therapeutics tablet PO SCH (07:59)
[2021-05-09] MEDS: hydrOXYzine 25 MG tablet PO SCH ×2 (07:59→20:42)
[2021-05-09 08:00] VITALS: BP 114/60
--- NOTE | 2021-05-09 14:44 | NUR ---
CM Presenting Issues: [facility] inquiring about pt's 1:1 observation status for placement purposes. Per care team consultation, pt's never been placed on 1:1 @ [facility]; clinician reviewed chart & noted that pt was place on a 1:1 at a previous IMD prior to his admission at [facility]. Interventions: This note is to clarify that pt's has not been on a 1:1 observation since his admission to [facility] on 04/12/21. [facility] providers hasn't recommended a 1:1 observation for pt since his admission. Avis Hernandez LCSW Addendum: 05/09/21 at 1449 by Avis Hernandez Amended: Links added.
--- NOTE | 2021-05-09 14:52 | NUR ---
Placement Sent updated notes & 14-day MAR to [facility] to facilitate pat's access to placement. Avis Hernandez [employer] Addendum: 05/09/21 at 1452 by Avsi Hernandez SS Amended: Links added.
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
[2021-05-09 19:35] VITALS: BP 107/54
[2021-05-09] MEDS: traZODone 50mg tablet PO SCH (20:42)
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
[2021-05-10 08:00] VITALS: BP 90/46
[2021-05-10] MEDS: mupirocin 2% ointment 22GM TP SCH ×2 (08:00→21:00)
[2021-05-10] MEDS: haloperidol 5mg tablet PO SCH ×2 (08:19→21:00)
[2021-05-10] MEDS: docusate sod 100mg capsule PO SCH (08:19)
[2021-05-10] MEDS: hydrOXYzine 25 MG tablet PO SCH ×2 (08:19→21:00)
[2021-05-10] MEDS: cholecalciferol (vitamin D3) 1,000 unit (25mcg) tablet PO SCH (08:20)
[2021-05-10] MEDS: multivitamins, therapeutics tablet PO SCH (08:20)
--- NOTE | 2021-05-10 13:35 | NUR ---
We talked about Boundaries, the different kinds and how to communicate our boundaries to others. Each pt. did a written activity to help them identify a person/situation they struggle to set boundaries in. Pt. was very quiet during the group, he declined sharing his thoughts today with the group. He did engage in the writing activity but declined sharing it in the group as well. He was alert and oriented X 4. His thought content and thought process was linear. Lucy oGld LCSW
[2021-05-10] MEDS: NICOTINE POLACRILEX 2 MG LOZENGE BC PRN (15:31)
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
[2021-05-10 20:00] VITALS: BP 114/55
[2021-05-10] MEDS: traZODone 50mg tablet PO SCH (21:00)
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
[2021-05-11 08:00] VITALS: BP 110/60
[2021-05-11] MEDS: cholecalciferol (vitamin D3) 1,000 unit (25mcg) tablet PO SCH (08:40)
[2021-05-11] MEDS: haloperidol 5mg tablet PO SCH ×2 (08:40→20:11)
[2021-05-11] MEDS: hydrOXYzine 25 MG tablet PO SCH ×2 (08:40→20:11)
[2021-05-11] MEDS: multivitamins, therapeutics tablet PO SCH (08:40)
[2021-05-11] MEDS: docusate sod 100mg capsule PO SCH (08:40)
[2021-05-11] MEDS: mupirocin 2% ointment 22GM TP SCH ×2 (08:41→20:11)
[2021-05-11] MEDS: NICOTINE POLACRILEX 2 MG LOZENGE BC PRN (10:21)
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
[2021-05-11 20:00] VITALS: BP 111/51
[2021-05-11] MEDS: traZODone 50mg tablet PO SCH (20:11)
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
[2021-05-12 08:00] VITALS: BP 120/70
[2021-05-12] MEDS: hydrOXYzine 25 MG tablet PO SCH ×2 (08:19→20:12)
[2021-05-12] MEDS: multivitamins, therapeutics tablet PO SCH (08:19)
[2021-05-12] MEDS: sertraline 25mg tablet PO SCH (08:19)
[2021-05-12] MEDS: docusate sod 100mg capsule PO SCH (08:19)
[2021-05-12] MEDS: cholecalciferol (vitamin D3) 1,000 unit (25mcg) tablet PO SCH (08:19)
[2021-05-12] MEDS: haloperidol 5mg tablet PO SCH ×2 (08:20→20:12)
[2021-05-12] MEDS: acetaminophen 325mg tablet PO PRN ×2 (08:21→18:44)
[2021-05-12] MEDS: mupirocin 2% ointment 22GM TP SCH ×2 (08:22→20:13)
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
[2021-05-12 20:06] VITALS: BP 111/62
[2021-05-12] MEDS: traZODone 50mg tablet PO SCH (20:12)
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
[2021-05-13 08:28] VITALS: BP 96/47
[2021-05-13] MEDS: docusate sod 100mg capsule PO SCH (08:42)
[2021-05-13] MEDS: multivitamins, therapeutics tablet PO SCH (08:42)
[2021-05-13] MEDS: cholecalciferol (vitamin D3) 1,000 unit (25mcg) tablet PO SCH (08:43)
[2021-05-13] MEDS: sertraline 25mg tablet PO SCH (08:43)
[2021-05-13] MEDS: hydrOXYzine 25 MG tablet PO SCH ×2 (08:43→20:22)
[2021-05-13] MEDS: haloperidol 5mg tablet PO SCH ×2 (08:43→20:23)
[2021-05-13] MEDS: mupirocin 2% ointment 22GM TP SCH ×2 (08:44→20:28)
--- NOTE | 2021-05-13 11:30 | NUR ---
DCP Presenting Issues: Pt's accepted @ [facility], admit/DC date is 05/22 per PG. Interventions: Care team notified, pt will need 30-day meds to take to [facility]. Provider notified to send meds order to [facility] for delivery to [facility]. Plan: Pt to d/c & transition to [facility] on 05/22 w/30-day meds. Avis Hernandez LCSW Addendum: 05/13/21 at 1133 by Avis Hernandez SS Amended: Links added.
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
[2021-05-13] MEDS ORDERED: HYDR-3686 PO (15:21)
[2021-05-13] MEDS ORDERED: SERT-432 PO (15:21)
[2021-05-13] MEDS ORDERED: PALI234D IM (15:21)
[2021-05-13] MEDS ORDERED: NICO-907 BC (15:21)
[2021-05-13] MEDS ORDERED: MULT-25 PO (15:21)
[2021-05-13] MEDS ORDERED: MUPI22OI30 TP (15:21)
[2021-05-13] MEDS ORDERED: CHOL50004 PO (15:21)
[2021-05-13] MEDS ORDERED: DOCU100C40 PO (15:21)
[2021-05-13] MEDS ORDERED: TRAZ150T78 PO (15:21)
[2021-05-13] MEDS: LORazepam 1 MG tablet PO PRN (16:40)
[2021-05-13 19:48] VITALS: BP 98/58
[2021-05-13] MEDS: traZODone 50mg tablet PO SCH (20:22)
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
[2021-05-14 08:00] VITALS: BP 97/60
[2021-05-14] MEDS: mupirocin 2% ointment 22GM TP SCH ×2 (08:03→20:04)
[2021-05-14] MEDS: hydrOXYzine 25 MG tablet PO SCH ×2 (08:04→20:01)
[2021-05-14] MEDS: haloperidol 5mg tablet PO SCH ×2 (08:04→20:02)
[2021-05-14] MEDS: multivitamins, therapeutics tablet PO SCH (08:04)
[2021-05-14] MEDS: docusate sod 100mg capsule PO SCH (08:05)
[2021-05-14] MEDS: sertraline 25mg tablet PO SCH (08:05)
[2021-05-14] MEDS: cholecalciferol (vitamin D3) 1,000 unit (25mcg) tablet PO SCH (08:06)
--- NOTE | 2021-05-14 09:36 | NUR ---
Reassessment: Pt continues w/ adequate PO intake, mostly 100% of meals on a Regular diet meeting needs. Pt compliant w/ meds. LBM 05/09 receiving routine colace. No nutrition intervention implemented at this time, will continue to monitor. Recs: 1. Continue Regular diet as tolerated 2. Bowel care per rx 3. Weekly wts Addendum: 05/14/21 at [address] Amended: Links added.
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
[2021-05-14] MEDS: NICOTINE POLACRILEX 2 MG LOZENGE BC PRN (15:52)
[2021-05-14] MEDS: traZODone 50mg tablet PO SCH (20:02)
[2021-05-14 20:18] VITALS: BP 100/62
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
[2021-05-15 08:34] VITALS: BP 100/64
[2021-05-15] MEDS: docusate sod 100mg capsule PO SCH (08:48)
[2021-05-15] MEDS: multivitamins, therapeutics tablet PO SCH (08:48)
[2021-05-15] MEDS: hydrOXYzine 25 MG tablet PO SCH ×2 (08:48→20:19)
[2021-05-15] MEDS: haloperidol 5mg tablet PO SCH ×2 (08:49→20:19)
[2021-05-15] MEDS: sertraline 25mg tablet PO SCH (08:49)
[2021-05-15] MEDS: cholecalciferol (vitamin D3) 1,000 unit (25mcg) tablet PO SCH (08:49)
[2021-05-15] MEDS: mupirocin 2% ointment 22GM TP SCH ×2 (08:50→20:24)
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
[2021-05-15] MEDS: LORazepam 1 MG tablet PO PRN (20:19)
[2021-05-15] MEDS: traZODone 50mg tablet PO SCH (20:24)
[2021-05-15 20:39] VITALS: BP 116/69
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
[2021-05-16 08:00] VITALS: BP 101/58
[2021-05-16] MEDS: mupirocin 2% ointment 22GM TP SCH ×2 (08:00→20:00)
[2021-05-16] MEDS: haloperidol 5mg tablet PO SCH ×2 (08:10→21:05)
[2021-05-16] MEDS: cholecalciferol (vitamin D3) 1,000 unit (25mcg) tablet PO SCH (08:11)
[2021-05-16] MEDS: docusate sod 100mg capsule PO SCH (08:11)
[2021-05-16] MEDS: sertraline 25mg tablet PO SCH (08:11)
[2021-05-16] MEDS: multivitamins, therapeutics tablet PO SCH (08:11)
[2021-05-16] MEDS: hydrOXYzine 25 MG tablet PO SCH ×2 (08:11→21:06)
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
[2021-05-16 19:29] VITALS: BP 116/59
[2021-05-16] MEDS: traZODone 50mg tablet PO SCH (21:05)
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
[2021-05-17 08:00] VITALS: BP 110/58
[2021-05-17] MEDS: mupirocin 2% ointment 22GM TP SCH ×2 (08:00→20:00)
[2021-05-17] MEDS: docusate sod 100mg capsule PO SCH (08:15)
[2021-05-17] MEDS: sertraline 25mg tablet PO SCH (08:16)
[2021-05-17] MEDS: haloperidol 5mg tablet PO SCH ×2 (08:16→20:14)
[2021-05-17] MEDS: cholecalciferol (vitamin D3) 1,000 unit (25mcg) tablet PO SCH (08:16)
[2021-05-17] MEDS: multivitamins, therapeutics tablet PO SCH (08:16)
[2021-05-17] MEDS: hydrOXYzine 25 MG tablet PO SCH ×2 (08:16→20:14)
[2021-05-17] MEDS: NICOTINE POLACRILEX 2 MG LOZENGE BC PRN (09:28)
--- NOTE | 2021-05-17 14:00 | NUR ---
Group Art Tx Continued: Patient entered itno the group activity after the session had been underway approximately 35 minutes. Patient was able to grasp the directions and quickly entered into the activity, identifying what he would put on his personal Wellness Wheel from the handouts provided him. He was then able to make his inspector and clerk that included his "Steps to Wellness". *Please refer to the [facility] Case Notes for entire overview. Araceli Maldonado MA, CIRCLE SHEAR OPERATOR #[id number] [facility], Art Therapist Addendum: 05/17/21 at 1635 by Araceli Maldonado SS Amended: Links added.
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
[2021-05-17 19:31] VITALS: BP 120/66
[2021-05-17] MEDS: traZODone 50mg tablet PO SCH (20:14)
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
--- NOTE | 2021-05-18 07:12 | NUR ---
DISCHARGE PLAN-05/21/21 David has been accepted to [facility] and Public Guardian has approved it. He will get picked up around 2:30 PM [facility] follow up scheduled with [facility] and will be working with [facility]. SHELLI Gee
[2021-05-18] MEDS ORDERED: HALO5TAB PO (07:59)
[2021-05-18] MEDS: haloperidol 5mg tablet PO SCH ×2 (08:06→20:28)
[2021-05-18] MEDS: hydrOXYzine 25 MG tablet PO SCH ×2 (08:06→20:31)
[2021-05-18] MEDS: multivitamins, therapeutics tablet PO SCH (08:06)
[2021-05-18] MEDS: cholecalciferol (vitamin D3) 1,000 unit (25mcg) tablet PO SCH (08:06)
[2021-05-18] MEDS: sertraline 25mg tablet PO SCH (08:06)
[2021-05-18] MEDS: docusate sod 100mg capsule PO SCH (08:06)
[2021-05-18 08:49] VITALS: BP 106/48
[2021-05-18] MEDS: mupirocin 2% ointment 22GM TP SCH (09:35)
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
[2021-05-18] MEDS: LORazepam 1 MG tablet PO PRN (18:17)
[2021-05-18 19:42] VITALS: BP 132/72
[2021-05-18] MEDS: traZODone 50mg tablet PO SCH (20:27)
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
[2021-05-19 08:00] VITALS: BP 102/50
[2021-05-19] MEDS: haloperidol 5mg tablet PO SCH ×2 (08:36→20:18)
[2021-05-19] MEDS: cholecalciferol (vitamin D3) 1,000 unit (25mcg) tablet PO SCH (08:37)
[2021-05-19] MEDS: multivitamins, therapeutics tablet PO SCH (08:37)
[2021-05-19] MEDS: hydrOXYzine 25 MG tablet PO SCH ×2 (08:37→20:18)
[2021-05-19] MEDS: sertraline 25mg tablet PO SCH (08:37)
[2021-05-19] MEDS: docusate sod 100mg capsule PO SCH (08:37)
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
[2021-05-19 20:00] VITALS: BP 118/70
[2021-05-19] MEDS: traZODone 50mg tablet PO SCH (20:18)
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
[2021-05-20 07:47] VITALS: BP 99/42
[2021-05-20] MEDS: multivitamins, therapeutics tablet PO SCH (08:00)
[2021-05-20] MEDS: docusate sod 100mg capsule PO SCH (08:24)
[2021-05-20] MEDS: haloperidol 5mg tablet PO SCH ×2 (08:25→20:14)
[2021-05-20] MEDS: hydrOXYzine 25 MG tablet PO SCH ×2 (08:25→20:15)
[2021-05-20] MEDS: cholecalciferol (vitamin D3) 1,000 unit (25mcg) tablet PO SCH (08:25)
[2021-05-20] MEDS: sertraline 25mg tablet PO SCH (08:26)
[2021-05-20] MEDS: NICOTINE POLACRILEX 2 MG LOZENGE BC PRN (12:37)
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
[2021-05-20] MEDS: LORazepam 1 MG tablet PO PRN (16:50)
[2021-05-20 20:03] VITALS: BP 114/55
[2021-05-20] MEDS: traZODone 50mg tablet PO SCH (20:14)
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
[2021-05-21 08:00] VITALS: BP 105/57
[2021-05-21] MEDS ORDERED: paliperidone palmitate inj 234 MG/1.5 ML SYRINGE IM ONE (08:00)
[2021-05-21] MEDS: sertraline 25mg tablet PO SCH (08:21)
[2021-05-21] MEDS: multivitamins, therapeutics tablet PO SCH (08:21)
[2021-05-21] MEDS: docusate sod 100mg capsule PO SCH (08:21)
[2021-05-21] MEDS: cholecalciferol (vitamin D3) 1,000 unit (25mcg) tablet PO SCH (08:21)
[2021-05-21] MEDS: haloperidol 5mg tablet PO SCH (08:21)
[2021-05-21] MEDS: hydrOXYzine 25 MG tablet PO SCH (08:21)
--- NOTE | 2021-05-21 10:15 | NUR ---
Invega injection administered in rt. deltoid, pt. tolerated well. Also, obtained orders from Dr. Salinas to discontinue ordered wound care to rt. chin per area healed and pt. has not been picking at area.
[2021-05-21] MEDS: paliperidone palmitate inj 234 MG/1.5 ML SYRINGE IM SCH (10:16)
[2021-05-21] MEDS: NICOTINE POLACRILEX 2 MG LOZENGE BC PRN (11:24)
--- NOTE | 2021-05-21 14:13 | NUR ---
Reassessment: Pt continues w/ adequate PO intake, mostly 100% of meals on a Regular diet meeting needs. Pt compliant w/ meds. LBM 05/19 receiving routine colace. No nutrition intervention implemented at this time, will continue to monitor. Recs: 1. Continue Regular diet as tolerated 2. Bowel care per rx 3. Weekly wts Addendum: 05/21/21 at [address] Amended: Links added.
--- NOTE | 2021-05-21 14:25 | NUR ---
Discharge Note: Pt. was escorted off the unit accompanied by this conventional mortgage underwriter to the national dedicated truck driver who will be taking him to [facility] at 1425. His belongings were inventoried and returned to him by [employer], and this conventional mortgage underwriter reviewed pt's discharge paperwork and medications with him and he reported understanding. Pt. was sent with his medications, along with smoking cessation lozenges. He is able to contract for safety.
== END 2021-05-21 17:00 | DRG 750 ==
LOC: ADULT MH 12:19 → UNDODISIN 04-19 09:23 → ADULT MH 04-21 11:04
PROVIDERS: ADMIT Psychiatry & Neurology Psychiatry; ATTEND Psychiatry & Neurology Psychiatry
DX: F25.9 Schizoaffective disorder, unspecified (principal); F11.10 Opioid abuse, uncomplicated; F15.10 Other stimulant abuse, uncomplicated; L98.9 Disorder of the skin and subcutaneous tissue, unspecified; Z20.822 Contact with and (suspected) exposure to COVID-19; F17.210 Nicotine dependence, cigarettes, uncomplicated; Z81.4 Family history of other substance abuse and dependence; Z81.8 Family history of other mental and behavioral disorders
CPT/HCPCS: 36415; 80053; 80061; 83036; 84443; 87081; 87635; Q0177

== ENCOUNTER 2021-06-12 12:43 | Emergency (ER) | payer MEDICAID ==
[~2021-06-12] VITALS: Ht 182.9 cm; Wt 94.4 kg
[~2021-06-12 12:43] MED LIST changes: +CHOL50004 PO; +DOCU100C40 PO; -ESCI-10 PO; -ESCI10TA PO; +HALO5TAB PO; +HYDR-3686 PO; +MULT-25 PO; +MUPI22OI30 TP; +NICO-907 BC; -OLAN10TA3 PO; -RISP1TAB98 PO; -RISP3TAB63 PO; +SERT-432 PO; -TRAZ-256 PO; +TRAZ150T78 PO
[2021-06-12] MEDS ORDERED: haloperidol lactate 5mg/ml inj IM ONE (13:10)
[2021-06-12] MEDS ORDERED: quetiapine 100mg tablet PO ONE (13:10)
[2021-06-12 13:24] LABS: URINE AMPHETAMINE SCREEN NEGATIVE (Neg); URINE BARBITUATE SCREEN NEGATIVE (Neg); URINE BENZODIAZEPINES SCREEN NEGATIVE (Neg); URINE CANNABINOID SCREEN NEGATIVE (Neg); URINE COCAINE SCREEN NEGATIVE (Neg); URINE METHADONE SCREEN NEGATIVE (Neg); URINE OPIATE SCREEN NEGATIVE (Neg); URINE PHENCYCLIDINE SCREEN NEGATIVE (Neg)
[2021-06-12 13:24] LABS: BASOPHILS % (AUTO) 0.3 % (0-1); EOSINOPHILS % (AUTO) 0.3 % (0-6); HEMATOCRIT 42.3 % (42.0-52.0); HEMOGLOBIN 14.3 g/dl (14.0-17.9); LYMPHOCYTES # (AUTO) 1.7 X10'3 (1.1-4.8); LYMPHOCYTES % (AUTO) 19.7 % (21-51); MEAN CORPUSCULAR HEMOGLOBIN 26.3 PG (27.0-31.0); MEAN CORPUSCULAR HGB CONC 33.7 g/dL (33.0-36.5); MEAN CORPUSCULAR VOLUME 78.1 FL (78-98); MEAN PLATELET VOLUME 7.6 FL (7.4-10.4); MONOCYTES # (AUTO) 0.5 X10'3 (0-0.9); MONOCYTES % (AUTO) 6.1 % (2-12); NEUTROPHILS # (AUTO) 6.5 X10'3 (1.8-7.7); NEUTROPHILS % (AUTO) 73.6 % (42-75); PLATELET COUNT 375 X10'3 (140-440); RED BLOOD COUNT 5.42 X10'6 (4.70-6.10); RED CELL DISTRIBUTION WIDTH 14.4 % (11.5-14.5); WHITE BLOOD COUNT 8.8 X10'3 (4.5-11.0)
[2021-06-12 13:25] LABS: CLARITY,URINE CLEAR (Clear); COLOR,URINE YELLOW (Yellow); GLUCOSE, URINE NEGATIVE (Neg); KETONES,URINE 40 mg/dl (Neg); LEUKOCYTE ESTERASE ,URINE NEGATIVE (Neg); NITRITES, URINE NEGATIVE (Neg); OCCULT BLOOD,URINE NEGATIVE (Neg); PROTEIN,URINE NEGATIVE (Neg); UA COLLECTION TYPE VOIDED; UROBILINOGEN,URINE 0.2 E.U/dL (0.2-1.0)
--- NOTE | 2021-06-12 13:40 | NUR ---
Pt lying on bed with covers pulled over his head. Pt was pleasant upon greeting. Pt states the reason he is here is "I had to much clean time and [facility] dishcharged me." "Not because I am on a 5150, they are going to find me placement." Pt states he wants to go to [facility]. Pt denies all psychotic symptoms, but appears to be responding to internal stimuli. Pt makes bizarre hand movements as he is seeing something that isn't there. Pt also mumbles to him self as if conversation.Pt knows the day, where he is at and who is the president, but stats "Ernestine is my president." Pt is restless during assessment, but it cooperative. Per 5150 pt was not taking his medication consistently while at [facility]. Pt was recently discharged from [facility] on 05/21/21. Last Invega Sustenna injection was also on 05/21/21.
--- NOTE | 2021-06-12 13:56 | NUR ---
Received pt to bed #23 at 1235. Pt was brought back by [facility] and field officer (unsure of position). Pt was making bizarre movements and presented disorganized. Pt saw technical writer and editor and said "Hey I know you!" Pt was changed into green scrubs, labs drawn. Pt was compliant with this process. Addendum: 06/12/21 at 1435 by LEON Pt was restless and became slightly agitated. Pt has not been taking medications consistently. Pt talking to self and appears to be responding to internal stimuli. Recieved order for Haldol 10mg and Seroquel 100mg. Will continue to monitor.
[2021-06-12 14:01] LABS: ALANINE AMINOTRANSFERASE 40 U/L (12-78); ANION GAP 13 (8-16); BILIRUBIN,TOTAL 0.4 MG/DL (0.1-1.0); CALCIUM 9.2 MG/DL (8.5-10.1); CHLORIDE 105 MMOL/L (99-107); CREATININE 0.99 MG/DL (0.60-1.10); POTASSIUM 3.4 MMOL/L (3.5-5.1); SODIUM 143 MMOL/L (135-145); TOTAL CARBON DIOXIDE 24.6 MMOL/L (24-32); TOTAL PROTEIN 8.2 G/DL (6.4-8.2); eGFR > 90 ML/MIN
[2021-06-12 14:13] LABS: ALBUMIN 4.3 G/DL (3.4-5.0); ALBUMIN/GLOBULIN RATIO 1.1 (1.1-1.5); ALKALINE PHOSPHATASE 100 IU/L (46-116); ASPARTATE AMINO TRANSFERASE 26 U/L (10-37); BLOOD UREA NITROGEN 8 MG/DL (7-18); BUN/CREATININE RATIO 8.1 (5.4-32.0); ETHANOL < 0.010 GM/DL (0.0-0.010); GLUCOSE 122 MG/DL (70-104)
--- NOTE | 2021-06-12 14:38 | NUR ---
Pt resting comfortably and not rolling around in bed. Pt asked if HOB could be lowered. PRN was effective.
--- NOTE | 2021-06-12 16:33 | NUR ---
Pt sleeping comfortably on right side. Was up to bathroom then returned to bed. Respirations even and unlabored.
[2021-06-12] MEDS ORDERED: SERT-432 PO (17:11)
[2021-06-12] MEDS ORDERED: HALO10TA13 PO (17:11)
[2021-06-12] MEDS ORDERED: PALI234D IM (17:11)
[2021-06-12] MEDS ORDERED: MULT-1085 PO (17:11)
[2021-06-12] MEDS ORDERED: HYDR-3686 PO (17:11)
[2021-06-12] MEDS ORDERED: CHOL200012 PO (17:11)
[2021-06-12] MEDS ORDERED: TRAZ150T78 PO (17:11)
[2021-06-12] MEDS ORDERED: NICO-669 BC (17:11)
--- NOTE | 2021-06-12 17:48 | NUR ---
FAXED PACKET TO [facility]
[2021-06-12] MEDS ORDERED: NICOTINE POLACRILEX 2 MG LOZENGE BC PRN (18:10)
--- NOTE | 2021-06-12 19:38 | NUR ---
Pt is asleep at this time, no distress noted.
[2021-06-12] MEDS: hydrOXYzine 25 MG tablet PO SCH (20:19)
[2021-06-12] MEDS: haloperidol 5mg tablet PO SCH (20:20)
[2021-06-12] MEDS ORDERED: traZODone 150mg tablet PO SCH (21:00)
--- NOTE | 2021-06-12 22:00 | NUR ---
Pt is currently sleeping.
--- NOTE | 2021-06-13 01:05 | NUR ---
Pt appears to be sleeping, no distress noted.
--- NOTE | 2021-06-13 03:26 | NUR ---
Pt appears to be sleeping, no distress noted.
--- NOTE | 2021-06-13 05:05 | NUR ---
Pt appears to be sleeping.
--- NOTE | 2021-06-13 07:06 | NUR ---
Assumed care of patient, pt. his left side sleeping at this time. RR are even and unlabored.
[2021-06-13] MEDS ORDERED: cholecalciferol (vitamin D3) 1,000 unit (25mcg) tablet PO SCH (08:00)
[2021-06-13] MEDS ORDERED: multivitamins, therapeutics tablet PO SCH (08:00)
[2021-06-13] MEDS ORDERED: sertraline 25mg tablet PO SCH (08:00)
--- NOTE | 2021-06-13 08:00 | NUR ---
Pt. cooperative with medications, he is A&O X2 (name and place only). 1:1 completed at bedside, pt. denies any current thoughts of wanting to harm himself, but admits he was having some thoughts during the last month. Pt. denies any H/I. He does report A/V/HYATT which are not command in nature. When questioned by this publicity writer what these voices say, pt. states, "They ask me how I am doing."
[2021-06-13] MEDS: hydrOXYzine 25 MG tablet PO SCH (08:06)
[2021-06-13] MEDS: haloperidol 5mg tablet PO SCH (08:06)
--- NOTE | 2021-06-13 09:08 | NUR ---
Pt. up to use the BR and asked to call his mother. Staff provided assistance, however unable to reach pt's mother, will try again later. COVID test preformed on pt. , he tolerated this well, sent to the lab.
--- NOTE | 2021-06-13 10:19 | NUR ---
Pt. is sleeping in bed at this time, laying on his rt. side, rr even and unlabored.
--- NOTE | 2021-06-13 11:33 | NUR ---
Pt. continues to sleep at this time, laying on his back and appears to be resting comfortably
--- NOTE | 2021-06-13 11:47 | NUR ---
[facility] called to do a nurse 1:1 for possible pt. placement.
--- NOTE | 2021-06-13 12:13 | NUR ---
Per [facility], pt. has been accepted at [facility], transportation will be here to pick him up at 1945, will endorse to Noc shift.
--- NOTE | 2021-06-13 12:49 | NUR ---
Pt. is sleeping in bed at this time, laying on his left side, rr even and unlabored.
--- NOTE | 2021-06-13 14:31 | NUR ---
Pt. continues to sleep at this time, laying on his right side.
--- NOTE | 2021-06-13 16:03 | NUR ---
PtFeroz elizaiues to sleep on his left side at this time, appears to be resting comfortably.
--- NOTE | 2021-06-13 17:14 | NUR ---
Pt. continues to sleep, laying on his rt. side, rr even and unlabored.
--- NOTE | 2021-06-13 18:38 | NUR ---
The patient ate his dinner and is now resting on his bed.
[2021-06-13 19:41] VITALS: BP 112/59
[2021-06-20] MEDS ORDERED: paliperidone palmitate inj 234 MG/1.5 ML SYRINGE IM SCH (08:00)
== END 2021-06-13 19:49 ==
LOC: ER 12:44
DX: F23 Brief psychotic disorder (principal); Z20.822 Contact with and (suspected) exposure to COVID-19; R45.1 Restlessness and agitation; F41.9 Anxiety disorder, unspecified; F32.9 Major depressive disorder, single episode, unspecified; F15.90 Other stimulant use, unspecified, uncomplicated; F11.90 Opioid use, unspecified, uncomplicated; Z91.14 Patient's other noncompliance with medication regimen; Z72.89 Other problems related to lifestyle; Z56.0 Unemployment, unspecified; Z59.00 Homelessness unspecified; Z79.899 Other long term (current) drug therapy
CPT/HCPCS: 36415; 80053; 80305; 80320; 81003; 84439; 84443; 85025; 87635; 96372; 99285; C9803; J1630; Q0177